=== PATIENT | female | born 1955 | race Caucasian/White ===

== ENCOUNTER 2023-10-28 08:22 | Outpatient (CLI) | payer MEDICARE, SELFPAY ==
--- NOTE | 2023-10-28 08:43 | ECG_ITS ---
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 Measurements Intervals [place] Rate: 68 P: 48 [place]: 157 QRS: -25 QRSD: 92 T: 56 QT: 421 QTc: 450 Interpretive Statements SINUS RHYTHM WITH OCCASIONAL VENTRICULAR PREMATURE COMPLEXES INCOMPLETE RIGHT BUNDLE BRANCH BLOCK BORDERLINE ECG No previous ECG available for comparison Electronically Signed On 10-28-2023 11:43:21 CDT by Ralf Miller D.O.
[2023-10-28 08:49] LABS: Hematocrit 43.5 % (37.0-47.0); Hemoglobin 14.2 g/dL (12.0-15.0)
[2023-10-28 08:57] LABS: Albumin Level 4.1 g/dL (3.5-5.1); Estimated Glomerular Filt Rate > 60
[2023-10-28 10:12] LABS: Urine Cotinine NEGATIVE
== END 2023-10-28 08:23 | disposition home or self-care (01) ==
PROVIDERS: PCP Physician Assistant; Visit Provider Orthopaedic Surgery
DX: Z01.818 Encounter for other preprocedural examination (principal); M17.0 Bilateral primary osteoarthritis of knee; Z79.899 Other long term (current) drug therapy
CPT/HCPCS: 80307; 82040; 82565; 85014; 85018; 93005

== ENCOUNTER 2023-12-14 07:49 | Outpatient (CLI) | payer MEDICARE, SELFPAY ==
[2023-12-14 09:35] LABS: Basophils Absolute Auto 0.1 K/mm3 (0.0-0.1); Basophils Percent Auto 0.9 % (0.2-1.2); Eosinophils Absolute Auto 0.2 K/mm3 (0-0.3); Eosinophils Percent Auto 2.7 % (0-4.4); Hematocrit 39.8 % (37.0-47.0); Hemoglobin 13.5 g/dL (12.0-15.0); Immature Granulocyte Absolute 0.02 K/mm3 (0.00-0.031); Immature Granulocyte Percent A 0.4 % (0-0.5); Lymphocytes Absolute Auto 2.28 K/mm3 (0.9-3.2); Lymphocytes Percent Auto 40.9 % (18.3-44.2); Mean Corpuscular HGB Conc 33.9 g/dl (32-36); Mean Corpuscular Hemoglobin 30.9 pg (26-34); Mean Corpuscular Volume 91.1 fl (80-100); Mean Platelet Volume 10.4 fl (7.4-10.4); Monocytes Absolute Auto 0.4 K/mm3 (0.1-0.6); Monocytes Percent Auto 7.7 % (2.6-8.5); Neutrophils Absolute Auto 2.7 K/mm3 (1.3-6.7); Neutrophils Percent Auto 47.4 % (45.5-73.1); Platelet Count Result 243 k/mm3 (150-375); Red Blood Count 4.37 M/mm3 (4.2-5.4); Red Cell Distribution Width 12.8 % (11.5-14.5); White Blood Count 5.6 K/mm3 (4.5-10.0)
[2023-12-14 09:40] LABS: Anion Gap 10 mmol/L (4-12); Blood Urea Nitrogen 24 mg/dL (7-17); Calcium 9.1 mg/dL (8.4-10.2); Carbon Dioxide 31 mmol/L (22-30); Chloride 98 mmol/L (98-107); Estimated Glomerular Filt Rate > 60; Glucose 92 mg/dL (65-110); Potassium 3.6 mmol/L (3.4-5.0); Sodium 139 mmol/L (137-145)
[2023-12-14 09:41] LABS: Albumin Level 4.4 g/dL (3.5-5.1)
[2023-12-14 09:46] LABS: Hemoglobin A1C 6.5 % (<5.7)
[2023-12-14 09:52] LABS: Urine Cotinine NEGATIVE
[2023-12-14 10:40] LABS: MRSA (PCR) NOT DETECTED (NOT DETECTE)
== END 2023-12-14 07:50 | disposition home or self-care (01) ==
LOC: ANHSURGERY 07:54
PROVIDERS: Anesthesiology; PCP Physician Assistant; Visit Provider Orthopaedic Surgery
DX: M17.12 Unilateral primary osteoarthritis, left knee (principal); Z01.818 Encounter for other preprocedural examination; Z51.81 Encounter for therapeutic drug level monitoring
CPT/HCPCS: 36415; 80048; 80307; 82040; 83036; 85025; 87641

== ENCOUNTER 2024-01-05 02:06 | Day surgery (SDC) | payer MEDICARE, SELFPAY ==
--- NOTE | 2023-12-14 07:55 | PC.NURSE ---
Report to the Outpatient Waiting Room, entrance under the green pavilion located off [facility], at time ___06:00am____ on date __01/05/24 . Planned Procedure Time: ____08:00am____. Time changes happen often and if your time is changed the preop area will call you the afternoon before. - You and your visitor will be asked to self-screen and do not enter if you have any COVID symptoms. - A mask is optional within the hospital at this time. Patients may have clear liquids (water, carbonated beverages, clear teas, apple juice) until 3 hours prior to surgery with a maximum of 20 ounces. - No food from midnight until time of surgery Take the following medications with a SIP of water the morning of surgery: ____Amlodipine. May take your albuteral inhaler and bupropion as needed that am. DO NOT STOP ANY OF YOUR OTHER PRESCRIPTION MEDICATIONS PRIOR TO SURGERY ?EXCEPT THE FOLLOWING Medications to discontinue per physician Hold all NSAIDS/Meloxicam per Dr Salas for 7 days prior Date to take last dose__12/28/23 Please no make-up, nail tongan, hairspray, perfume, deodorant, or body powder the day of surgery. No jewelry (including any body piercings) or valuables the day of surgery, leave them at home. Please take a shower or bath the night before, or the morning of, surgery with an antibacterial soap. Wear comfortable, loose fitting clothing. Children are encouraged to wear pajamas. - Jewelry must be removed prior to entering the operating room. Rings and piercings that are not removed may be cut off. - The hospital will not accept responsibility for valuables. - Please leave all valuables, including medications, at home the day of surgery. If you are going home after surgery, a licensed interstate bus driver must drive you home. - NO public transportation without another adult if you receive anesthesia. - We recommend that an adult stay with you for 24 hours following discharge. - We also recommend that you do not drive, make important decision, drink alcoholic beverages, or take any drugs that were not prescribed by your health care provider for at least 24 hours after your discharge time. Follow any additional instructions given to you from your surgeon. If you or anyone in your household have experienced Covid symptoms in the past week, please notify your surgeon or the nurse liaison at the phone number below for possible testing. Telephone instructions given to ___patient and asked if any additional questions and then verbalized understanding. Patient advised to call surgeon office or pre surgery nurse liaison [phone] if any additional questions.
[2023-12-14 08:00] VITALS: BP 132/76; PULSE 76; RESP 16; TEMP 36.3; O2SAT 98; BMI 30.4
[2024-01-05] VITALS (14 sets, daily range): BP systolic 120–142; BP diastolic 57–74; PULSE 75–94; RESP 10–18; TEMP 35.8–37; O2SAT 95–99
--- NOTE | ~2024-01-05 | XR_ITS ---
EXAMINATION: [id number] DATE: 01/05/2024 13:01 INDICATION: Left knee arthroplasty. Postop. TECHNIQUE: 2 views of left knee were obtained. COMPARISON: Left knee radiographs 09/21/2023 FINDINGS: There is a total left knee arthroplasty without patellar resurfacing. Tibia demonstrates 8 degrees medial angulation with respect to the tibial component. No fracture. There is a tiny osteophy te of the patella. There is gas in the knee joint and soft tissues, consistent with recent surgery. IMPRESSION: 1. New total left knee arthroplasty. Reviewed, dictated and finalized at location A.
[2024-01-05] MEDS: ACETAMINOPHEN 500 MG TABLET 1000 MG PO (08:47)
[2024-01-05] MEDS: LACTATED RINGERS 1,000 ML 30 ML IV CONT ×2 (08:55→12:43)
[2024-01-05 09:01] LABS: Glucose Point of Care 104 mg/dl (65-105)
--- NOTE | 2024-01-05 09:10 | WPDANESEPPF ---
Anes - Initial Pre Proc Eval Procedure: Operation Date: 01/05/24 10:30 Proposed Procedures p Left Total Knee Arthroplasty - Herminio Salas MD Date/Time: 01/05/24 09:10 Surgeon: Herminio Salas MD Pre Op Diagnosis: primary OA left knee Patient Data Age: 68 Gender: F Height: 1.73 m Weight: 90.9 kg Last Vital Signs Temp 36.3 C L 12/14/23 08:00 Pulse 76 12/14/23 08:00 Resp 16 12/14/23 08:00 BP 132/76 12/14/23 08:00 Pulse Ox 98 12/14/23 08:00 O2 Del Method Room Air 12/14/23 08:00 Allergies Allergy/AdvReac Type Severity Reaction Status Date / Time almond Allergy Intermediate Dyspnea / Verified 12/14/23 09:43 SOB flaxseed Allergy Intermediate Dyspnea / Verified 12/14/23 09:43 SOB nut - unspecified Allergy Intermediate Dyspnea / Verified 12/14/23 09:43 SOB oxycodone Allergy Intermediate facial Verified 12/14/23 09:43 Swelling scallops Allergy Intermediate Dyspnea / Verified 12/14/23 09:43 SOB sesame seed Allergy Intermediate Dyspnea / Verified 12/14/23 09:43 SOB soy Allergy Intermediate Dyspnea / Verified 12/14/23 09:43 SOB wheat Allergy Intermediate Dyspnea / Verified 12/14/23 09:43 SOB amoxicillin Allergy Unknown Rash, SOB Verified 12/14/23 09:43 Sulfa (Sulfonamide Allergy Unknown Dyspnea / Verified 12/14/23 09:43 Antibiotics) SOB /rash JAYLEEN Inhibitors AdvReac Mild Cough Verified 12/14/23 09:43 doxycycline AdvReac Mild Redness of Verified 12/14/23 09:43 Skin Elcambb-AHE-CtZ Reductase AdvReac Unknown Joint Pain Verified 12/14/23 09:43 Inhibitor Home Medications Medication Instructions Recorded Confirmed Type amlodipine 10 mg tablet 10 mg PO DAILY 09/21/23 01/05/24 History bupropion HCl 150 mg 24 hr tablet, 150 mg PO QAM PRN Anxiety 09/21/23 01/05/24 History extended release glimepiride 2 mg tablet 2 mg PO QAM 09/21/23 01/05/24 History hydrochlorothiazide 25 mg tablet 25 mg PO DAILY 09/21/23 01/05/24 History meloxicam 15 mg tablet 15 mg PO DAILY PRN Pain 09/21/23 01/05/24 History triamcinolone acetonide 55 mcg 1 spray intranasal DAILY 09/21/23 01/05/24 History nasal spray aerosol (Nasacort) acetaminophen 500 mg capsule 1,000 mg PO Q6H PRN Pain 12/14/23 01/05/24 History albuterol (refill) 90 90 mcg inhalation TID PRN 12/14/23 01/05/24 History mcg/actuation aerosol inhaler Shortness Of Breath Laboratory Tests 01/05/24 08:58 POC Capillary Glucose 104 mg/dl (65-105) Patient hx anesthesia problems: none Family hx anesthesia problems: none Results Review: All pre-operative results and documents have been reviewed as part of the pre-operative evaluation. [facility] Past Medical History Medical History Diabetes History of bruising easily History of lower leg fracture (~2009) History of meningitis (~1962) Coma Hypertension Surgical History Surgical History History of appendectomy (~1981) History of cholecystectomy (~1994) History of hysterectomy (~1987) History of shoulder surgery (~2018) repair History of tonsillectomy (~1972) Social History Social History Smoking packs per day: 0.5 Smoking cigarettes per day: 10.0 Years smoked: 50 Smoking pack-years: 25.00 Smoking status: Former smoker Tobacco type: cigarettes Smoking end date: 09/25/23 Alcohol intake: current Substance use: never Substance use type: does not use Do You Feel Safe in your Home?: Yes Lack of Transportation: No Lack of Food: Never True Current Housing: I Have Housing Concerned About Future Housing: No Difficulty Paying Gas/Electric Bills: No Difficulty Paying for Meds: No Currently Unemployed: No Education: High School Diploma/GED Difficulty w/ Childcare or Family Care: No Living arrangements: with family Additional natalie
--- NOTE | 2024-01-05 10:04 | WPDHPUPDATE1 ---
History and Physical Update Update Date/Time: 01/05/24 10:04 Proceed with left total knee arthroplasty. History and Physical has been reviewed, including an updated exam of the patient. There are NO changes in the patient's condition. Risks, benefits, and alternatives have been discussed and questions answered. Patient agrees to proceed with procedure.
[2024-01-05] MEDS: TRANEXAMIC ACID 1,000MG/ISO100 1,000 MG/100 ML BAG 200 MG IVPB (10:11)
[2024-01-05] MEDS: ceFAZolin 2 GM/D5W 50 ML 2 GM/50 ML BAG IVPB ×2 (10:16→18:14)
[2024-01-05] MEDS: SODIUM CHLORIDE 0.9% IV 38.7 ML, ROPivacaine HCL 1% 200 MG, KETOROLAC INJ (*BKC) 15 MG,... INFILTRATE (10:44)
[2024-01-05 12:50] LABS: Glucose Point of Care 122 mg/dl (65-105)
[2024-01-05] MEDS: fentaNYL CITRATE INJ (*CRX) 100 MCG/2 ML VIAL 25 MCG IV PUSH ×2 (12:50→13:30)
[2024-01-05] MEDS: ONDANSETRON INJ 4 MG/2 ML VIAL IV PUSH (14:05)
--- NOTE | 2024-01-05 14:09 | ADMGEN ---
This patient, Natalie Davalos, was admitted to [facility] Surg Room 326-01. Patient/family oriented to hospital policies and general routines including ID bracelet, bed and alarms, visiting hours, pain management, procedures, bathroom and other care routines, personal items, smoking policy, room service/diet, and visiting hours. Information on how to activate the Rapid Response Team has been discussed. Patient/Family are encouraged to report perceived risks to care and to ask questions if they do not understand what they are told or what they should do.
[2024-01-05 14:56] LABS: Basophils Percent Auto 0.3 % (0.2-1.2); Eosinophils Percent Auto 0.1 % (0-4.4); Hematocrit 37.2 % (37.0-47.0); Hemoglobin 12.8 g/dL (12.0-15.0); Immature Granulocyte Absolute 0.03 K/mm3 (0.00-0.031); Immature Granulocyte Percent A 0.4 % (0-0.5); Lymphocytes Absolute Auto 0.68 K/mm3 (0.9-3.2); Lymphocytes Percent Auto 9.3 % (18.3-44.2); Mean Corpuscular HGB Conc 34.4 g/dl (32-36); Mean Corpuscular Hemoglobin 31.1 pg (26-34); Mean Corpuscular Volume 90.5 fl (80-100); Mean Platelet Volume 10.3 fl (7.4-10.4); Monocytes Absolute Auto 0.1 K/mm3 (0.1-0.6); Neutrophils Absolute Auto 6.5 K/mm3 (1.3-6.7); Neutrophils Percent Auto 88.9 % (45.5-73.1); Platelet Count Result 225 k/mm3 (150-375); Red Blood Count 4.11 M/mm3 (4.2-5.4); Red Cell Distribution Width 12.4 % (11.5-14.5); White Blood Count 7.3 K/mm3 (4.5-10.0)
[2024-01-05 15:05] LABS: Anion Gap 8 mmol/L (4-12); Blood Urea Nitrogen 16 mg/dL (7-17); Calcium 8.5 mg/dL (8.4-10.2); Carbon Dioxide 30 mmol/L (22-30); Chloride 97 mmol/L (98-107); Estimated CRCL calculation 75 ml/min; Estimated Glomerular Filt Rate > 60; Glucose 199 mg/dL (65-110); Potassium 3.9 mmol/L (3.4-5.0); Sodium 135 mmol/L (137-145)
--- NOTE | 2024-01-05 15:29 | W.PM.PROC2 ---
Procedure Note - Detailed Date of Procedure 01/05/24 Pre-op Diagnosis Primary OA left knee Post-op Diagnosis Same Procedure Performed Calipered, kinematically aligned total knee replacement left knee. Surgeon Herminio Salas MD Final Dressing Cutter Radha Schmidt PA-C Anesthesia General Indications Severe degenerative arthritis of the knee. Failed conservative treatment. Findings According to the calipered kinematic alignment principles, the knee was balanced by the following verification checks incorporating 6 caliper measurements, using an insert goniometer to select the insert thickness, and adjusting the tibial resection following the kinematic alignment algorithm (see figure 160.10 published in [employer] chapter on kinematic alignment total knee arthroplasty.) The steps verified the femoral and tibial components were kinematically aligned coincident to the patient's pre arthritic joint lines, which closely restored the nightmute tibial compartment forces and ligament laxities without ligament release. The record of verification checks were documented and scanned into the chart. Description of Procedure General anesthesia was administered. A well-padded tourniquet was placed high on the thigh. The limb was prepped and draped in the usual sterile fashion. The limb was exsanguinated and the tourniquet inflated to 275 mmHg. A longitudinal incision was created over the midline of the knee. Sharp dissection was taken through subcutaneous tissues. Electrocautery was used for hemostasis. A trivector approach to the knee joint was performed. The ACL, anterior horns of the menisci, and fat pad were excised, and a subperiosteal dissection was carried along the posterior medial border of the tibia. Starting midway between the top of the notch in the anterior femoral cortex, I drilled a 9 mm diameter hole parallel to the anterior cortex to minimize flexion of the femoral component and promote patella tracking. I verified the existence of a 5-10 mm bone bridge between the posterior aspect of the hole and the anterior limit of the intercondylar notch. An intraosseous positioning abhi was inserted 10 cm into the femur perpendicular to the distal joint line and parallel to the anterior cortex. I used a distal femoral referencing guide that compensated 2 mm when the cartilage was worn on the distal medial femoral condyle, and 2 mm when the cartilage was worn on the distal lateral femoral condyle. The basis for setting the distal and posterior femoral resection guide is knowing that the varus and valgus grade II to IV Kellegren-Juan osteoarthritic knees have negligible bone wear at 0? and 90? and that the mean full-thickness cartilage wear approximates 2 mm. I measured the thickness of distal femoral resections with a caliper to +/- 0.5 mm. The thickness of each resection was adjusted to match the thickness of the respective condyle of the femoral component within 0 0.5 mm of target after compensating for cartilage wear and kerf. When the distal resection was 1-2 mm too thin, a recut guide was used to adjust the cut. When the distal resection was too thick, a 1 or 2 mm thick washer was fixed to the back of the 4-in-1 chamfer block to toshia a corrective gap between the femoral component and distal femur. I set posterior femoral referencing guide at 0? orientation to position the pin holes for the 4 in 1 chamfer block. The sindi wing measured the width of the distal femoral resection and selected the size of the 4 in 1 chamfer block and femoral component. I measured the thickness of the posterior femoral resections with a caliper before making the anterior and chamfer cuts. I just the did the thicknesses of each resection to match the thickness of the respective condyle of the femoral component within +/-0.5 mm after compensating for cartilage wear and curve. When a posterior resection femoral resection was 1-2 mm too thick or thin a corrective correction was ma
[2024-01-05] MEDS: SENNA/DOCUSATE SODIUM TABLET 2 TAB PO (16:18)
[2024-01-05] MEDS: MELOXICAM 7.5 MG TABLET PO (16:18)
[2024-01-05] MEDS: hydroCHLOROthiazide 25 MG TABLET PO (16:19)
[2024-01-05] MEDS: predniSONE 5 MG TABLET PO (16:19)
[2024-01-05] MEDS: amLODIPine BESYLATE 10 MG TABLET PO (16:19)
[2024-01-05] MEDS: HYDROcodone/acetaminophen (*CRX) 5-325 MG TABLET 1 TAB PO (16:19)
[2024-01-05] MEDS: ACETAMINOPHEN 325 MG TABLET 650 MG PO (18:14)
[2024-01-05] MEDS: ASPIRIN 81 MG ENTERIC TABLET PO (20:59)
[2024-01-05] MEDS: FAMOTIDINE 20 MG TABLET PO (20:59)
[2024-01-06] MEDS: ceFAZolin 2 GM/D5W 50 ML 2 GM/50 ML BAG IVPB ×2 (02:09→10:15)
[2024-01-06] MEDS: HYDROcodone/acetaminophen (*CRX) 5-325 MG TABLET 1 TAB PO ×2 (03:25→10:07)
[2024-01-06 03:34] VITALS: BP 132/67; PULSE 86; RESP 18; TEMP 36.4; O2SAT 97
[2024-01-06 06:06] LABS: Basophils Percent Auto 0.2 % (0.2-1.2); Hematocrit 36.7 % (37.0-47.0); Hemoglobin 11.9 g/dL (12.0-15.0); Immature Granulocyte Absolute 0.05 K/mm3 (0.00-0.031); Immature Granulocyte Percent A 0.4 % (0-0.5); Lymphocytes Absolute Auto 1.28 K/mm3 (0.9-3.2); Lymphocytes Percent Auto 9.9 % (18.3-44.2); Mean Corpuscular HGB Conc 32.4 g/dl (32-36); Mean Corpuscular Hemoglobin 30.4 pg (26-34); Mean Corpuscular Volume 93.6 fl (80-100); Mean Platelet Volume 10.8 fl (7.4-10.4); Monocytes Absolute Auto 0.6 K/mm3 (0.1-0.6); Monocytes Percent Auto 4.8 % (2.6-8.5); Neutrophils Percent Auto 84.7 % (45.5-73.1); Platelet Count Result 232 k/mm3 (150-375); Red Blood Count 3.92 M/mm3 (4.2-5.4); Red Cell Distribution Width 12.5 % (11.5-14.5)
[2024-01-06] MEDS: ACETAMINOPHEN 325 MG TABLET 650 MG PO ×2 (06:06→11:45)
[2024-01-06 06:20] LABS: Anion Gap 11 mmol/L (4-12); Blood Urea Nitrogen 16 mg/dL (7-17); Calcium 8.4 mg/dL (8.4-10.2); Carbon Dioxide 30 mmol/L (22-30); Chloride 93 mmol/L (98-107); Estimated CRCL calculation 54 ml/min; Estimated Glomerular Filt Rate 55; Glucose 204 mg/dL (65-110); Potassium 3.7 mmol/L (3.4-5.0); Sodium 134 mmol/L (137-145)
--- NOTE | 2024-01-06 07:24 | WPDANESPN ---
Anes - Prog Note Post-Op Date/Time: 01/06/24 07:24 Cardiovascular status: normal Respiratory status: normal Airway patency: baseline Mental status: baseline Post-Op hydration status: normal Vital Signs: Last Vital Signs Temp 36.4 C L 01/06/24 03:34 Pulse 86 01/06/24 03:34 Resp 18 01/06/24 03:34 BP 132/67 01/06/24 03:34 Pulse Ox 97 01/06/24 03:34 O2 Del Method Room Air 01/05/24 16:00 O2 Flow Rate 2 01/05/24 15:02 Pain Score (VAS): 0 I/O: Intake & Output 01/05/24 01/05/24 01/06/24 15:59 23:59 07:59 Intake Total 250 410 250 Output Total 480 Balance 250 -70 250 Laboratory Tests 01/06/24 05:32 01/06/24 05:32 01/05/24 01/05/24 01/05/24 08:48 08:58 12:46 WBC RBC Hgb Hct MCV MCH MCHC RDW Plt Count MPV Immature Gran % (Auto) Neut % (Auto) Lymph % (Auto) [place] % (Auto) Eos % (Auto) Baso % (Auto) Lymph # (Auto) [place] # (Auto) Eos # (Auto) Baso # (Auto) Abs Immat Gran (auto) Absolute Neuts (auto) Absolute Nucleated RBC Nucleated RBC % Sodium Potassium Chloride Carbon Dioxide Anion Gap BUN Creatinine Estim Creat Clear Calc Estimated GFR Glucose POC Capillary Glucose 104 122 H Calcium Blood Type O Positive Antibody Screen Negative 01/05/24 01/06/24 14:49 05:32 WBC 7.3 13.0 H RBC 4.11 L 3.92 L Hgb 12.8 11.9 L Hct 37.2 36.7 L MCV 90.5 93.6 MCH 31.1 30.4 MCHC 34.4 32.4 RDW 12.4 12.5 Plt Count 225 232 MPV 10.3 10.8 H Immature Gran % (Auto) 0.4 0.4 Neut % (Auto) 88.9 H 84.7 H Lymph % (Auto) 9.3 L 9.9 L [place] % (Auto) 1.0 L 4.8 Eos % (Auto) 0.1 0.0 Baso % (Auto) 0.3 0.2 Lymph # (Auto) 0.68 L 1.28 [place] # (Auto) 0.1 0.6 Eos # (Auto) 0.0 0.0 Baso # (Auto) 0.0 0.0 Abs Immat Gran (auto) 0.03 0.05 H Absolute Neuts (auto) 6.5 11.0 H Absolute Nucleated RBC 0.000 0.000 Nucleated RBC % 0.0 0.0 Sodium 135 L 134 L Potassium 3.9 3.7 Chloride 97 L 93 L Carbon Dioxide 30 30 Anion Gap 8 11 BUN 16 16 Creatinine 0.70 1.00 Estim Creat Clear Calc 75 54 Estimated GFR > 60 55 L Glucose 199 H 204 H POC Capillary Glucose Calcium 8.5 8.4 Blood Type Antibody Screen Post-procedural complaints: none Patient Feedback: Patient satisfied with anesthetic care.
[2024-01-06 07:34] VITALS: BP 123/68; PULSE 70; RESP 12; TEMP 36.4; O2SAT 98
--- NOTE | 2024-01-06 08:38 | PM.DS ---
DS: Admitting Diagnosis Discharge Date 01/06/24 Admitting Diagnosis OA knee Left DS: Discharge Diagnosis Discharge Diagnosis (1) Status post total left knee replacement: Code(s): Z96.652 - Presence of left artificial knee joint Status: Acute Assessment and Plan: Postop day 1: Left total knee arthroplasty. Patient tolerated procedure well. No complications. Pain manageable with pain medication. No numbness or tingling. We had a lengthy discussion regarding postoperative wound care, limitations, expectations, and exercises. Patient shows good understanding. He has had initial physical therapy and is tolerating it well. DVT prophylaxis: 81 mg baby aspirin b.i.d. for 14 days. Pain medication: Hydrocodone. Meloxicam. Prednisone (she will not take if Blood glucose >150.) Patient has followup appointment with Dr. Salas in 3 weeks. DS: Summary Hospital Course Reason for hospitalization: Total knee arthroplasty Hospital Course: Patient tolerated procedure well. Has had initial PT/OT. Status at Discharge Functional status at discharge: uses cane/walker Overall status at discharge: patient is progressing back to baseline Time Spent with Patient Time attestation: Total time spent providing and/or coordinating discharge services: Exam Narrative: 68-year-old overweight female. Resting comfortably in bed. Alert and oriented x3. No acute distress. Wearing compression socks bilaterally. Dressing dry and intact without drainage. Moderate swelling. No ecchymosis. No erythema. No hematoma. Range of motion limited due to pain. Calf nontender. Neurologic status intact. No varicosities. Distal pulses palpable. Quad functions. DS: Data Data Completed and Pending Labs on day of discharge: Labs from last 24 hours 01/06/24 01/05/24 01/05/24 05:32 14:49 12:46 WBC 13.0 H 7.3 RBC 3.92 L 4.11 L Hgb 11.9 L 12.8 Hct 36.7 L 37.2 MCV 93.6 90.5 MCH 30.4 31.1 MCHC 32.4 34.4 RDW 12.5 12.4 Plt Count 232 225 MPV 10.8 H 10.3 Immature Gran % (Auto) 0.4 0.4 Neut % (Auto) 84.7 H 88.9 H Lymph % (Auto) 9.9 L 9.3 L [place] % (Auto) 4.8 1.0 L Eos % (Auto) 0.0 0.1 Baso % (Auto) 0.2 0.3 Lymph # (Auto) 1.28 0.68 L [place] # (Auto) 0.6 0.1 Eos # (Auto) 0.0 0.0 Baso # (Auto) 0.0 0.0 Abs Immat Gran (auto) 0.05 H 0.03 Absolute Neuts (auto) 11.0 H 6.5 Absolute Nucleated RBC 0.000 0.000 Nucleated RBC % 0.0 0.0 Sodium 134 L 135 L Potassium 3.7 3.9 Chloride 93 L 97 L Carbon Dioxide 30 30 Anion Gap 11 8 BUN 16 16 Creatinine 1.00 0.70 Estim Creat Clear Calc 54 75 Estimated GFR 55 L > 60 Glucose 204 H 199 H POC Capillary Glucose 122 H Calcium 8.4 8.5 Blood Type Antibody Screen 01/05/24 01/05/24 08:58 08:48 WBC RBC Hgb Hct MCV MCH MCHC RDW Plt Count MPV Immature Gran % (Auto) Neut % (Auto) Lymph % (Auto) [place] % (Auto) Eos % (Auto) Baso % (Auto) Lymph # (Auto) [place] # (Auto) Eos # (Auto) Baso # (Auto) Abs Immat Gran (auto) Absolute Neuts (auto) Absolute Nucleated RBC Nucleated RBC % Sodium Potassium Chloride Carbon Dioxide Anion Gap BUN Creatinine Estim Creat Clear Calc Estimated GFR Glucose POC Capillary Glucose 104 Calcium Blood Type O Positive Antibody Screen Negative Discharge Plan Discharge Patient Disposition: Home, Self-Care Discharge Instructions: See green instruction sheets Stand Alone Forms: General Discharge Instructions Follow-up/Referrals: Radha Schmidt PA [Physician Gluer] - Discharge Medications: New hydrocodone-acetaminophen 5-325 mg tablet 1 - 2 tablet PO Q4-6H MDD 6 PRN (Reason: pain) Qty: 30 0RF prednisone 5 mg tablet 5 mg PO DAILY 21 Days Qty: 21 0RF aspirin 81 mg tablet,delayed release (DR/EC) 81 mg PO BID 14 Days Qty:
[2024-01-06] MEDS: polyethylene glycoL 3350 17 GM POWD.PACK PO (10:07)
[2024-01-06] MEDS: GLIMEPIRIDE 2 MG TABLET PO (10:08)
[2024-01-06] MEDS: MELOXICAM 7.5 MG TABLET PO (10:09)
[2024-01-06] MEDS: amLODIPine BESYLATE 10 MG TABLET PO (10:09)
[2024-01-06] MEDS: FAMOTIDINE 20 MG TABLET PO (10:09)
[2024-01-06] MEDS: SENNA/DOCUSATE SODIUM TABLET 2 TAB PO (10:09)
[2024-01-06] MEDS: hydroCHLOROthiazide 25 MG TABLET PO (10:10)
[2024-01-06] MEDS: FLUTICASONE PROPIONATE 0.05% NA SPR 16 GM BTL (*BKC) 1 SPRAY NASAL (10:10)
[2024-01-06] MEDS: ASPIRIN 81 MG ENTERIC TABLET PO (10:15)
[2024-01-06 11:34] VITALS: BP 136/76; PULSE 74; RESP 16; TEMP 36.4; O2SAT 99
[2024-01-06 12:03] LABS: Glucose Point of Care 146 mg/dl (65-105)
== END 2024-01-06 12:50 | disposition home or self-care (01) ==
LOC: ANHSURGERY 12:56 → ANH3MEDSUR 13:54
PROVIDERS: Physician Assistant Surgical; PCP Physician Assistant; Visit Provider Orthopaedic Surgery
PROC: (CPT 27447; principal; 2024-01-05 10:30)
DX: M17.12 Unilateral primary osteoarthritis, left knee (principal); I10 Essential (primary) hypertension; E11.9 Type 2 diabetes mellitus without complications; Z87.891 Personal history of nicotine dependence; E66.9 Obesity, unspecified; Z68.29 Body mass index [BMI] 29.0-29.9, adult; Z79.84 Long term (current) use of oral hypoglycemic drugs; Z79.51 Long term (current) use of inhaled steroids
CPT/HCPCS: 27447; 36415; 73560; 80048; 82948; 85025; 86850; 86900; 86901; 97110; 97116; 97161; 97165; 97530; 97535; A9270; C1713; J0171; J0690; J1100; J1170; J1885; J2405; J2704; J2795; J3010; J7120; J7512

== ENCOUNTER 2024-02-24 09:48 | Outpatient (CLI) | payer MEDICARE, SELFPAY ==
--- NOTE | ~2024-02-24 | XR_ITS ---
XR knee RT min 4V 02/24/2024 10:19 Indication: Right knee pain Procedure: 4 views right knee Comparison: 09/21/2023 Findings: Moderate osteoarthritis of the right knee. Degenerative changes most advanced in the medial compartment. No fracture or traumatic malalignment. No significant joint effusion. Impression: 1: Moderate tricompartment osteoarthritis. Reviewed, dictated and finalized at location B. Impression: 1: Moderate tricompartment osteoarthritis.
--- NOTE | ~2024-02-24 | XR_ITS ---
XR knee LT 3V 02/24/2024 10:19 Indication: Left knee arthroplasty Procedure: 3 views left knee Comparison: 09/21/2023 Findings: Status post left knee arthroplasty. Prosthesis well seated. No significant joint effusion. No foreign bodies. Impression: 1: No acute bone or joint abnormality. Reviewed, dictated and finalized at location B. Impression: 1: No acute bone or joint abnormality.
== END 2024-02-24 09:49 | disposition home or self-care (01) ==
PROVIDERS: PCP Physician Assistant; Visit Provider Orthopaedic Surgery
DX: M17.11 Unilateral primary osteoarthritis, right knee (principal); Z96.652 Presence of left artificial knee joint
CPT/HCPCS: 73562; 73564

== ENCOUNTER 2024-03-05 10:00 | Outpatient (CLI) | payer MEDICARE, SELFPAY ==
[2024-03-05 10:29] LABS: Basophils Percent Auto 0.5 % (0.2-1.2); Eosinophils Absolute Auto 0.1 K/mm3 (0-0.3); Hematocrit 42.5 % (37.0-47.0); Hemoglobin 14.4 g/dL (12.0-15.0); Immature Granulocyte Absolute 0.01 K/mm3 (0.00-0.031); Immature Granulocyte Percent A 0.2 % (0-0.5); Lymphocytes Absolute Auto 1.83 K/mm3 (0.9-3.2); Lymphocytes Percent Auto 31.5 % (18.3-44.2); Mean Corpuscular HGB Conc 33.9 g/dl (32-36); Mean Corpuscular Hemoglobin 30.9 pg (26-34); Mean Corpuscular Volume 91.2 fl (80-100); Mean Platelet Volume 10.1 fl (7.4-10.4); Monocytes Absolute Auto 0.4 K/mm3 (0.1-0.6); Monocytes Percent Auto 7.2 % (2.6-8.5); Neutrophils Absolute Auto 3.5 K/mm3 (1.3-6.7); Neutrophils Percent Auto 59.6 % (45.5-73.1); Platelet Count Result 274 k/mm3 (150-375); Red Blood Count 4.66 M/mm3 (4.2-5.4); Red Cell Distribution Width 12.4 % (11.5-14.5); White Blood Count 5.8 K/mm3 (4.5-10.0)
[2024-03-05 10:36] LABS: Albumin Level 4.4 g/dL (3.5-5.1)
[2024-03-05 10:40] LABS: Anion Gap 11 mmol/L (4-12); Blood Urea Nitrogen 14 mg/dL (7-17); Calcium 9.5 mg/dL (8.4-10.2); Carbon Dioxide 31 mmol/L (22-30); Chloride 97 mmol/L (98-107); Estimated Glomerular Filt Rate > 60; Glucose 96 mg/dL (65-110); Potassium 3.8 mmol/L (3.4-5.0); Sodium 139 mmol/L (137-145)
[2024-03-05 11:00] LABS: Urine Cotinine NEGATIVE
[2024-03-05 11:38] LABS: MRSA (PCR) NOT DETECTED (NOT DETECTE)
== END 2024-03-05 10:01 | disposition home or self-care (01) ==
LOC: ANHSURGERY 10:08
PROVIDERS: Anesthesiology; PCP Physician Assistant; Visit Provider Orthopaedic Surgery
DX: Z01.818 Encounter for other preprocedural examination (principal); M17.11 Unilateral primary osteoarthritis, right knee; Z51.81 Encounter for therapeutic drug level monitoring; Z79.899 Other long term (current) drug therapy
CPT/HCPCS: 36415; 80048; 80307; 82040; 85025; 86850; 86900; 86901; 87641

== ENCOUNTER 2024-03-08 00:39 | Day surgery (SDC) | payer MEDICARE, SELFPAY ==
--- NOTE | 2024-03-02 15:04 | PC.NURSE ---
Report to the Outpatient Waiting Room, entrance under the green pavilion located off [facility], at time ___06:00am__on date _03/08/24 . Planned Procedure Time: ___07:30am .? Time changes happen often and if your time is changed the preop area will call you the afternoon before. - You and your visitor will be asked to self-screen and do not enter if you have any COVID symptoms. Please call surgeon if you need to reschedule. - A mask is optional within the hospital at this time. Patients may have clear liquids (water, carbonated beverages, clear teas, apple juice) until 3 hours prior to surgery with a maximum of 20 ounces. - No food from midnight until time of surgery and no smoking. Take only the following medications with a SIP of water on the morning of surgery: _Amlodipine, Albuteral inhaler, Bupropion & Tylenol as needed DO NOT STOP ANY OF YOUR OTHER PRESCRIPTION MEDICATIONS PRIOR TO SURGERY EXCEPT THE FOLLOWING Medications to discontinue per physician Aspirin and Meloxicam for 7 days prior to surgery per Dr Salas Date to take last dose 02/29/24 Please no make-up, nail hungarian, hairspray, perfume, deodorant, or body powder the day of surgery.? No jewelry (including any body piercings) or valuables the day of surgery, leave them at home.? Please take a shower or bath the night before, or the morning of, surgery with an antibacterial soap.? Wear comfortable, loose fitting clothing.? - Jewelry must be removed prior to entering the operating room.? Rings and piercings that are not removed may be cut off. - The hospital will not accept responsibility for valuables.? - Please leave all valuables, including medications, at home the day of surgery. If you are going home after surgery, a licensed ambulette driver must drive you home.? - NO public transportation without another adult if you receive anesthesia. - We recommend that an adult stay with you for 24 hours following discharge. - We also recommend that you do not drive, make important decision, drink alcoholic beverages, or take any drugs that were not prescribed by your health care provider for at least 24 hours after your discharge time. Follow any additional instructions given to you from your surgeon. Telephone instructions given to __apatient and asked if any additional questions and then verbalized understanding. Patient advised to call surgeon office or pre surgery nurse liaison [phone] if any additional questions.
[2024-03-02 15:13] VITALS: BMI 30.4
[2024-03-08] VITALS (13 sets, daily range): BP systolic 119–148; BP diastolic 50–73; PULSE 73–97; RESP 11–18; TEMP 36.1–37.3; O2SAT 90–100; BMI 32.8
--- NOTE | ~2024-03-08 | XR_ITS ---
EXAMINATION: [id number] DATE: 03/08/2024 09:33 INDICATION: Total right knee arthroplasty. Postop. TECHNIQUE: 2 views of right knee were obtained. COMPARISON: Right knee radiographs 02/24/2024 FINDINGS: There is a total right knee arthroplasty without patellar resurfacing in near-anatomic alig nment. No fracture. There are tiny osteophytes of the patella. There is gas in the knee joint and sof t tissues, consistent with recent surgery. IMPRESSION: 1. Total right knee arthroplasty in near-anatomic alignment. Reviewed, dictated and finalized at location A.
[2024-03-08] MEDS: ACETAMINOPHEN 500 MG TABLET 1000 MG PO (06:20)
[2024-03-08] MEDS: LACTATED RINGERS 1,000 ML 30 ML IV CONT ×2 (06:30→09:15)
--- NOTE | 2024-03-08 06:33 | WPDANESEPPF ---
Anes - Initial Pre Proc Eval Procedure: Operation Date: 03/08/24 07:30 Proposed Procedures p Right Total Knee Arthroplasty - Herminio Salas MD Date/Time: 03/08/24 06:33 Surgeon: Herminio Salas MD Pre Op Diagnosis: Prim OA Rt Knee Patient Data Age: 68 Gender: F Height: 1.73 m Weight: 90.7 kg Allergies Allergy/AdvReac Type Severity Reaction Status Date / Time almond Allergy Intermediate Dyspnea / Verified 03/08/24 06:18 SOB flaxseed Allergy Intermediate Dyspnea / Verified 03/08/24 06:18 SOB nut - unspecified Allergy Intermediate Dyspnea / Verified 03/08/24 06:18 SOB oxycodone Allergy Intermediate facial Verified 03/08/24 06:18 Swelling scallops Allergy Intermediate Dyspnea / Verified 03/08/24 06:18 SOB sesame seed Allergy Intermediate Dyspnea / Verified 03/08/24 06:18 SOB soy Allergy Intermediate Dyspnea / Verified 03/08/24 06:18 SOB wheat Allergy Intermediate Dyspnea / Verified 03/08/24 06:18 SOB amoxicillin Allergy Unknown Rash, SOB Verified 03/08/24 06:18 Sulfa (Sulfonamide Allergy Unknown Dyspnea / Verified 03/08/24 06:18 Antibiotics) SOB /rash codeine AdvReac Intermediate Rash Verified 03/08/24 06:18 JAYLEEN Inhibitors AdvReac Mild Cough Verified 03/08/24 06:18 doxycycline AdvReac Mild Redness of Verified 03/08/24 06:18 Skin Ejvtoom-AWE-FwJ Reductase AdvReac Unknown Joint Pain Verified 03/08/24 06:18 Inhibitor Home Medications Medication Instructions Recorded Confirmed Type amlodipine 10 mg tablet 10 mg PO DAILY 09/21/23 03/08/24 History bupropion HCl 150 mg 24 hr tablet, 150 mg PO QAM PRN Anxiety 09/21/23 03/08/24 History extended release glimepiride 2 mg tablet 2 mg PO QAM 09/21/23 03/08/24 History hydrochlorothiazide 25 mg tablet 25 mg PO DAILY 09/21/23 03/08/24 History acetaminophen 500 mg capsule 1,000 mg PO Q6H PRN Pain 12/14/23 03/08/24 History albuterol (refill) 90 90 mcg inhalation TID PRN 12/14/23 03/05/24 History mcg/actuation aerosol inhaler Shortness Of Breath aspirin 81 mg tablet,delayed 81 mg PO BID 14 days #28 tabs 01/05/24 03/08/24 Rx release meloxicam 15 mg tablet 15 mg PO DAILY PRN Pain #30 tabs 01/09/24 03/08/24 Rx Patient hx anesthesia problems: none Family hx anesthesia problems: none Results Review: All pre-operative results and documents have been reviewed as part of the pre-operative evaluation. [facility] Past Medical History Medical History Diabetes History of bruising easily History of lower leg fracture (~2009) History of meningitis (~1962) Coma Hypertension Surgical History Surgical History History of appendectomy (~1981) History of cholecystectomy (~1994) History of hysterectomy (~1987) History of shoulder surgery (~2018) repair History of tonsillectomy (~1972) Social History Social History Smoking packs per day: 0.5 Smoking cigarettes per day: 10.0 Years smoked: 45 Smoking pack-years: 22.50 Smoking status: Former smoker Smoking end date: 09/25/23 Alcohol intake: current Substance use: never Substance use type: does not use Do You Feel Safe in your Home?: Yes Lack of Transportation: No Lack of Food: Never True Current Housing: I Have Housing Concerned About Future Housing: No Difficulty Paying Gas/Electric Bills: No Difficulty Paying for Meds: No Currently Unemployed: No Education: High School Diploma/GED Difficulty w/ Childcare or Family Care: No Living arrangements: with family Additional living arrangements comments: Spiritual care concerns: No Anes - Eval Final PreProcedure Day of Procedure 03/08/24 06:33 Patient weight: obese Heart: regular rate and rhythm Lungs: clear to auscultation Airway: Mallampati scale class II Neurological: alert and oriented La
[2024-03-08 06:34] LABS: Glucose Point of Care 109 mg/dl (65-105)
[2024-03-08] MEDS: TRANEXAMIC ACID 1,000MG/ISO100 1,000 MG/100 ML BAG 200 MG IVPB (07:02)
--- NOTE | 2024-03-08 07:17 | WPDHPUPDATE1 ---
History and Physical Update Update Date/Time: 03/08/24 07:17 History and Physical has been reviewed, including an updated exam of the patient. There are NO changes in the patient's condition. Risks, benefits, and alternatives have been discussed and questions answered. Patient agrees to proceed with procedure.
[2024-03-08] MEDS: ceFAZolin 2 GM/D5W 50 ML 2 GM/50 ML BAG IVPB ×3 (07:30→21:35)
[2024-03-08] MEDS: SODIUM CHLORIDE 0.9% IV 38.7 ML, ROPivacaine HCL 1% 200 MG, KETOROLAC INJ (*BKC) 15 MG,... INFILTRATE (07:51)
[2024-03-08] MEDS: GENTAMICIN BONE CEMENT REFOBACIN 1 EACH TOPICAL (08:46)
[2024-03-08] MEDS: TRANEXAMIC ACID 1,000 MG/10 ML AMPUL 1000 MG IV PUSH (08:52)
[2024-03-08 09:22] LABS: Glucose Point of Care 147 mg/dl (65-105)
--- NOTE | 2024-03-08 09:37 | W.PM.PROC2 ---
Procedure Note - Detailed Date of Procedure 03/08/24 Pre-op Diagnosis Severe right knee osteoarthritis Post-op Diagnosis Same Procedure Performed Calipered, kinematically aligned total knee replacement right knee. Surgeon Herminio Salas MD News Assistant Radha Schmidt PA-C Anesthesia General Findings According to the calipered kinematic alignment principles, the knee was balanced by the following verification checks incorporating 6 caliper measurements, using an insert goniometer to select the insert thickness, and adjusting the tibial resection following the kinematic alignment algorithm (see figure 160.10 published in [employer] chapter on kinematic alignment total knee arthroplasty.) The steps verified the femoral and tibial components were kinematically aligned coincident to the patient's pre arthritic joint lines, which closely restored the nulato tibial compartment forces and ligament laxities without ligament release. The [employer] knee, designed specifically for kinematic alignment, fit optimally. The record of verification checks were documented and scanned into the chart. Distal Femoral Resection: Distal Medial 6 mm(cartilage worn), Distal Lateral 8 mm Target thickness of 8mm Unworn, 6mm Worn (No Cartilage). Posterior Femoral Resection: Posterior Medial 5 mm(cartilage worn), Posterior Lateral 7 mm. Target thickness of 7mm Unworn, 5mm Worn (No Cartilage). Tibia varus preoperative 5 degrees; postoperative 6 degrees. Tibia slope preoperative 6 degrees; postoperative 5 degrees. Description of Procedure General anesthesia was administered. A well-padded tourniquet was placed high on the thigh. The limb was prepped and draped in the usual sterile fashion. The limb was exsanguinated and the tourniquet inflated to 300 mmHg during exposure. A longitudinal incision was created over the midline of the knee. Sharp dissection was taken through subcutaneous tissues. Electrocautery was used for hemostasis. A trivector approach to the knee joint was performed. The ACL, anterior horns of the menisci, and fat pad were excised, and a subperiosteal dissection was carried along the posterior medial border of the tibia. The thickness of the nulato patella was measured with a caliper. The patella was resected using the oscillating saw. The best fitting anatomic patella button was selected. The fixation holes were drilled. When the patella and patella buttons combined thickness was thicker than the nulato patella, the patella was recut. Starting midway between the top of the notch in the anterior femoral cortex, I drilled a 9 mm diameter hole parallel to the anterior cortex to minimize flexion of the femoral component and promote patella tracking. I verified the existence of a 5-10 mm bone bridge between the posterior aspect of the hole and the anterior limit of the intercondylar notch. An intraosseous positioning abhi was inserted 10 cm into the femur perpendicular to the distal joint line and parallel to the anterior cortex. I used a distal femoral referencing guide that compensated 2 mm when the cartilage was worn on the distal medial femoral condyle, and 2 mm when the cartilage was worn on the distal lateral femoral condyle. The basis for setting the distal and posterior femoral resection guide is knowing that the varus and valgus grade II to IV Kellegren-Juan osteoarthritic knees have negligible bone wear at 0? and 90? and that the mean full-thickness cartilage wear approximates 2 mm. I measured the thickness of distal femoral resections with a caliper to +/- 0.5 mm. The thickness of each resection was adjusted to match the thickness of the respective condyle of the femoral component within 0.5 mm of target after compensating for cartilage wear and kerf. When the distal resection was 1-2 mm too thin, a recut guide was used to adjust the cut. When the distal resection was too thick, a 1 or 2 mm thick washer was fixed to the back o
[2024-03-08] MEDS: fentaNYL CITRATE INJ (*CRX) 100 MCG/2 ML VIAL 25 MCG IV PUSH ×4 (09:39→10:13)
--- NOTE | 2024-03-08 10:35 | ADMGEN ---
This patient, Natalie Davalos, was admitted to 2 Medical Room 251-. Patient/family oriented to hospital policies and general routines including ID bracelet, bed and alarms, visiting hours, pain management, procedures, bathroom and other care routines, personal items, smoking policy, room service/diet, and visiting hours. Information on how to activate the Rapid Response Team has been discussed. Patient/Family are encouraged to report perceived risks to care and to ask questions if they do not understand what they are told or what they should do.
[2024-03-08] MEDS: ONDANSETRON INJ 4 MG/2 ML VIAL IV PUSH ×2 (11:05→17:50)
[2024-03-08] MEDS: ACETAMINOPHEN 325 MG TABLET 650 MG PO ×2 (11:08→17:18)
[2024-03-08] MEDS: SODIUM CHLORIDE 0.9% IV 1,000 ML 125 ML IV CONT (11:09)
[2024-03-08] MEDS: HYDROcodone/acetaminophen (*CRX) 5-325 MG TABLET 1 TAB PO (15:00)
[2024-03-08] MEDS: SENNA/DOCUSATE SODIUM TABLET 2 TAB PO (17:18)
[2024-03-08] MEDS: predniSONE 5 MG TABLET PO (17:19)
[2024-03-08] MEDS: ASPIRIN 81 MG ENTERIC TABLET PO (17:19)
[2024-03-08] MEDS: FAMOTIDINE 20 MG TABLET PO (21:34)
[2024-03-08 23:38] LABS: Glucose Point of Care 151 mg/dl (65-105)
[2024-03-09] MEDS: ACETAMINOPHEN 325 MG TABLET 650 MG PO ×2 (00:09→06:05)
[2024-03-09] MEDS: HYDROcodone/acetaminophen (*CRX) 5-325 MG TABLET 1 TAB PO (02:19)
[2024-03-09 04:36] LABS: Basophils Percent Auto 0.2 % (0.2-1.2); Hematocrit 35.1 % (37.0-47.0); Hemoglobin 11.5 g/dL (12.0-15.0); Immature Granulocyte Absolute 0.05 K/mm3 (0.00-0.031); Immature Granulocyte Percent A 0.4 % (0-0.5); Lymphocytes Absolute Auto 1.52 K/mm3 (0.9-3.2); Mean Corpuscular HGB Conc 32.8 g/dl (32-36); Mean Corpuscular Hemoglobin 29.9 pg (26-34); Mean Corpuscular Volume 91.2 fl (80-100); Mean Platelet Volume 10.2 fl (7.4-10.4); Monocytes Absolute Auto 0.7 K/mm3 (0.1-0.6); Monocytes Percent Auto 5.8 % (2.6-8.5); Neutrophils Absolute Auto 9.5 K/mm3 (1.3-6.7); Neutrophils Percent Auto 80.6 % (45.5-73.1); Platelet Count Result 221 k/mm3 (150-375); Red Blood Count 3.85 M/mm3 (4.2-5.4); Red Cell Distribution Width 12.3 % (11.5-14.5); White Blood Count 11.7 K/mm3 (4.5-10.0)
[2024-03-09 04:49] LABS: Anion Gap 7 mmol/L (4-12); Blood Urea Nitrogen 14 mg/dL (7-17); Calcium 8.4 mg/dL (8.4-10.2); Carbon Dioxide 31 mmol/L (22-30); Chloride 97 mmol/L (98-107); Estimated CRCL calculation 79 ml/min; Estimated Glomerular Filt Rate > 60; Glucose 120 mg/dL (65-110); Potassium 3.9 mmol/L (3.4-5.0); Sodium 135 mmol/L (137-145)
[2024-03-09 05:08] VITALS: BP 121/60; PULSE 72; RESP 18; TEMP 36.8; O2SAT 97
[2024-03-09] MEDS: ceFAZolin 2 GM/D5W 50 ML 2 GM/50 ML BAG IVPB (06:09)
--- NOTE | 2024-03-09 07:47 | PM.DS ---
DS: Admitting Diagnosis Discharge Date 03/09/24 Admitting Diagnosis Knee arthritis DS: Discharge Diagnosis Discharge Diagnosis (1) Status post total right knee replacement: Code(s): Z96.651 - Presence of right artificial knee joint Status: Acute Plan Postop day 1: Right total knee arthroplasty. Patient tolerated procedure well. No complications. Pain manageable with pain medication. No numbness or tingling. We had a lengthy discussion regarding postoperative wound care, limitations, expectations, and exercises. Patient shows good understanding. She has had initial physical therapy and is tolerating it well. DVT prophylaxis: 81 mg baby aspirin b.i.d. for 14 days. Pain medication: Hydrocodone. Meloxicam. Prednisone. Patient has followup appointment with Dr. Salas in 3 weeks. DS: Summary Hospital Course Reason for hospitalization: Total knee arthroplasty Hospital Course: Patient tolerated procedure well. Has had initial PT/OT. Status at Discharge Functional status at discharge: uses cane/walker Overall status at discharge: patient is progressing back to baseline Time Spent with Patient Time attestation: Total time spent providing and/or coordinating discharge services: Exam Narrative: 68-year-old overweight female. Resting comfortably in bed. Alert and oriented x3. No acute distress. Wearing compression socks bilaterally. Dressing dry and intact without drainage. Moderate swelling. No ecchymosis. No erythema. No hematoma. Range of motion limited due to pain. Calf nontender. Neurologic status intact. No varicosities. Distal pulses palpable. Quad functions. DS: Data Data Completed and Pending Labs on day of discharge: Labs from last 24 hours 03/09/24 03/08/24 03/08/24 04:27 23:22 09:19 WBC 11.7 H RBC 3.85 L Hgb 11.5 L Hct 35.1 L MCV 91.2 MCH 29.9 MCHC 32.8 RDW 12.3 Plt Count 221 MPV 10.2 Immature Gran % (Auto) 0.4 Neut % (Auto) 80.6 H Lymph % (Auto) 13.0 L Alfalfa % (Auto) 5.8 Eos % (Auto) 0.0 Baso % (Auto) 0.2 Lymph # (Auto) 1.52 Alfalfa # (Auto) 0.7 H Eos # (Auto) 0.0 Baso # (Auto) 0.0 Abs Immat Gran (auto) 0.05 H Absolute Neuts (auto) 9.5 H Absolute Nucleated RBC 0.000 Nucleated RBC % 0.0 Sodium 135 L Potassium 3.9 Chloride 97 L Carbon Dioxide 31 H Anion Gap 7 BUN 14 Creatinine 0.70 Estim Creat Clear Calc 79 Estimated GFR > 60 Glucose 120 H POC Capillary Glucose 151 H 147 H Calcium 8.4 Discharge Plan Discharge Patient Disposition: Home, Self-Care Discharge Instructions: See green instruction sheets Patient Instructions: How to Stop Smoking (GEN), Pain Management (DC) Stand Alone Forms: General Discharge Instructions Follow-up/Referrals: Radha Schmidt PA [[facility] [employer]] - Discharge Medications: New hydrocodone-acetaminophen 5-325 mg tablet 1 - 2 tablet PO Q4-6H MDD 6 PRN (Reason: pain) Qty: 30 0RF meloxicam 15 mg tablet 15 mg PO DAILY Qty: 30 0RF Rx Instructions: Cut in half. Take 1/2 in morning and 1/2 at night. Take with food. Stop if stomach upset. prednisone 5 mg tablet 5 mg PO DAILY 21 Days Qty: 21 0RF Continued amlodipine 10 mg tablet 10 mg PO DAILY Rx Instructions: AM hydrochlorothiazide 25 mg tablet 25 mg PO DAILY Rx Instructions: am glimepiride 2 mg tablet 2 mg PO QAM Rx Instructions: administer with breakfast bupropion HCl 150 mg tablet extended release 24 hr 150 mg PO QAM PRN (Reason: Anxiety) albuterol (refill) 90 mcg/actuation Aerosol 90 mcg INHALATION TID PRN (Reason: Shortness Of Breath) aspirin 81 mg tablet,delayed release (DR/EC) 81 mg PO BID 14 Days Qty: 28 0RF Rx Instructions: pt to hold aspirin 7 days prior to surgery Held acetaminophen 500 mg Capsule 1,000 mg PO Q6H PRN (Deborah
[2024-03-09 08:09] VITALS: BP 165/78; PULSE 91; RESP 17; TEMP 36.9; O2SAT 95
[2024-03-09] MEDS: amLODIPine BESYLATE 10 MG TABLET PO (08:19)
[2024-03-09] MEDS: hydroCHLOROthiazide 25 MG TABLET PO (08:19)
[2024-03-09] MEDS: GLIMEPIRIDE 2 MG TABLET PO (08:19)
[2024-03-09] MEDS: SENNA/DOCUSATE SODIUM TABLET 2 TAB PO (08:19)
[2024-03-09] MEDS: polyethylene glycoL 3350 17 GM POWD.PACK PO (08:19)
[2024-03-09] MEDS: FAMOTIDINE 20 MG TABLET PO (08:19)
[2024-03-09] MEDS: ASPIRIN 81 MG ENTERIC TABLET PO (08:19)
[2024-03-09 08:40] LABS: Glucose Point of Care 144 mg/dl (65-105)
[2024-03-09 08:52] VITALS: O2SAT 99
== END 2024-03-09 10:05 | disposition home or self-care (01) ==
LOC: ANHSURGERY 09:18 → ANH2MED 10:39
PROVIDERS: Physician Assistant Surgical; PCP Physician Assistant; Visit Provider Orthopaedic Surgery
PROC: (CPT 27447; principal; 2024-03-08 07:30)
DX: M17.11 Unilateral primary osteoarthritis, right knee (principal); E11.9 Type 2 diabetes mellitus without complications; I10 Essential (primary) hypertension; Z87.891 Personal history of nicotine dependence; E66.9 Obesity, unspecified; Z68.32 Body mass index [BMI] 32.0-32.9, adult
CPT/HCPCS: 27447; 36415; 73560; 80048; 82948; 85025; 97110; 97161; 97165; 97530; 97535; A9270; C1713; J0171; J0690; J1100; J1885; J2003; J2405; J2704; J2795; J3010; J7030; J7120; J7512

== ENCOUNTER 2024-10-02 09:28 | Outpatient (CLI) | payer MEDICARE, SELFPAY ==
--- NOTE | ~2024-10-02 | XR_ITS ---
Cervical Spine: AP, lateral, open-mouth views Clinical History: Pain Findings: The normal lordotic curve is maintained. No fracture or subluxation seen. There is advanced degenerative disc narrowing at C5-C6 and C6-C7. There is moderate degenerative disc narrowing at the remaining cervical levels. There is mild to moderate facet arthropathy throughout the cervical spine . Pre-vertebral soft tissues are unremarkable. Impression: Moderate degenerative spondylosis overall, as detailed above. Reviewed, dictated and finalized at location . Impression: Moderate degenerative spondylosis overall, as detailed above.
--- OUTSIDE RECORDS SUMMARY | 2024-10-02 10:11 | XMS_ITS ---
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 ; Benign neoplasm of ascending colon D12.2 and Benign neoplasm of cecum D12.0 Assessments Encounter Date Diagnosis (ICD Code) Assessment Notes Treatment Notes Treatment Clinical Notes Section Notes 07/15/2023 Personal history of colon polyps (ICD-10 - Z86.010) 07/15/2023 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
--- OUTSIDE RECORDS SUMMARY | 2024-10-02 10:11 | XMS_ITS | Referral Summary ---
Author Organization [facility] Address [address] [place] [address] Care Team Providers Care Infectious Disease Physician Name Role Phone Candice Dallas NP Primary Care Provider [phone] Encounters Date Type Department Care Team Description 09/10/2024 Results Follow-Up [facility] at [address] [address] Anika Vyas PA 09/04/2024 2:50 PM CDT - 09/04/2024 11:59 PM CDT Hospital Encounter [facility] [address] [place] [address] Colitis; Chronic constipation; Bloating Discharge Disposition: Discharge to home or self care 09/04/2024 Telephone [facility] at [address] [place] [address] Beatrice Young LPN 09/04/2024 1:45 PM CDT Office Visit [facility] at [address] [address] Anika Vyas PA Colitis (Primary Dx); Chronic constipation; Bloating 08/27/2024 4:05 PM CDT - 08/27/2024 6:10 PM CDT Emergency [facility] Department [address] [place] [address] Colitis (Primary Dx) Discharge Disposition: Discharge to home or self care from Last 3 Months Allergies Active Allergy Reactions Criticality Noted Date Comments Last Inhibitors Anaphylaxis High 02/21/2017 Antihypertensives Amoxicillin-Pot Clavulanate Swelling High 01/09/2019 Facial swelling. Rash Codeine Rash Medium 10/03/2018 Levofloxacin Other (See comments) Low 02/21/2017 Causes arthritis to flare up Losartan Potassium Unknown 02/21/2017 Wrmbwuv-Tvw-Vzv Reductase Inhibitors Itching,Muscle pain,Other (See comments) Medium 02/21/2017 Antihyperlipidemics Medications amLODIPine (NORVASC) 10 mg tabletIndicatio ns:hypertension Take 1 tablet (10 mg total) by mouth every morning Active hydroCHLOROthia zide (HYDRODIURIL) 25 mg tabletIndicatio ns:hypertension Take 1 tablet (25 mg total) by mouth every morning Active glimepiride (AMARYL) 2 mg tabletIndicatio ns:type 2 diabetes mellitus Take 1 tablet (2 mg total) by mouth daily before breakfast Active fish oil-dha-epa 1,200-144-216 mg capsuleIndicati ons:supplement Take 1 capsule by mouth 2 (two) times a day Active multivit-minera p-mkqd-fjgtec tabletIndicatio ns:supplement Take 1 tablet by mouth every morning Active clobetasol-emol lient (TEMOVATE E) 0.05 % cream Apply 1 application topically 2 (two) times a day as needed Active albuterol HFA (PROVENTIL HFA,VENTOLIN HFA,PROAIR HFA) 90 mcg/actuation inhaler Inhale 2 puffs every 4 (four) hours as needed for wheezing Active oxyCODONE (ROXICODONE) 5 mg immediate release tabletIndicatio ns:Pain Take 1 tablet (5 mg total) by mouth every 4 (four) hours as needed for pain 40 tablet 9 Active acetaminophen (TYLENOL) 500 mg tablet Take 2 tablets (1,000 mg total) by mouth every 6 (six) hours 60 tablet 2 9 Active cefdinir (OMNICEF) 300 mg capsule Take 1 capsule (300 mg total) by mouth 2 (two) times a day for 14 days 28 capsule 5 09/11/19 25 metroNIDAZOLE (FLAGYL) 500 mg tablet Take 1 tablet (500 mg total) by mouth 3 (three) times a day for 7 days 21 tablet 5 09/04/19 25 Active Problems Problem Noted Date Diagnosed Date Colitis 09/04/2024 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 Social History Tobacco Use Types Packs/Day Years Used Date Smoking Tobacco: Former Cigarettes 0.5 48.2 1 976 - 07/2023 Smokeless Tobacco: Never Tobacco Cessation:Counseling Given: Not Answered Alcohol Use Standard Drinks/Week Comments Never 0 (1 standard drink = 0.6 oz pur e alcohol) AUDIT-C Answer Date Recorded Q1: How often do you have a drink containing alc ohol? Never 09/04/2024 Average Number of Drinks Not on file 025 Frequency of Binge Drinking Not on file 12/2024 Personal Safety Answer Date Recorded Have you ever been in or are you currently in a harmful physical or emotional relationship or is someone making you feel afraid or unsafe? Denies 08/27/2024 Comments No Sex and Gender Information Value Date Recorded Sex Assigned at Not on file Legal Sex Female 9:54 AM [employer] Gender Identity Not on file Sexual Orientation Not on file Last Filed Vital Signs Vital Sign Reading Time Taken Comments Blood Pressure 139/71 09/04/2024 1:34 PM CDT Pulse 82 09/04/2024 1:34 PM CDT Temperature 36.8 C (98.3 F) 08/27/2024 1:07 PM CDT Respiratory Rate 17 08/27/2024 5:00 PM CDT Oxygen Saturation 93% 09/04/2024 1:34 PM CDT Inhaled Oxygen Concentration - - Weight 95.3 kg (210 lb 1.6 oz) 09/04/2024 1:34 P M CDT Height 172.7 cm (5' 8 ) 09/04/2024 1:34 PM CDT Body Mass Index 31.95 09/04/2024 1:34 PM CDT Plan of Treatment Upcoming Encounters Date Type Department Care Team (Late st Contact Info) Description 10/17/2024 7:55 AM CDT Hospital Encounter [facility] [address] [place] [address] Katharine Espinoza MD [address] [place] [address] 10/17/2024 7:55 AM CDT - 10/17/2024 8:25 AM CDT Surgery [facility] [address] [place] [address] Katharine Espinoza MD [address] [place] [address] [address] [place] [address] COLONOSCOPY Scheduled Procedures Name Priority Associated Diagnoses Date/Ti me COLONOSCOPY Colitis 10/17/2024 7:55 AM CDT Procedures Procedure Name Priority Date/Time Associated Diagnosis Comments XR KUB Schedule Routine, Read Routine (OP Routine) 09/04/2024 3:19 PM CDT Colitis Chronic constipation Bloating HEMOGLOBIN AND HEMATOCRIT STAT 08/27/2024 5:01 PM CDT B ABO / RH CONFIRMATION TESTING STAT 08/27/2024 5:[address] ABDOMEN PELVIS W CONTRAST ED 08/27/2024 3:54 PM CDT EGFR STAT 08/27/2024 2:09 PM CDT DIFFERENTIAL AUTO STAT 08/27/2024 2:0 9 PM CDT ANTIBODY SCREEN STAT 08/27/2024 2:09 PM CDT ABO/RH STAT 08/27/2024 2:09 PM CDT TYPE AND SCREEN STAT 08/27/2024 2:09 PM CDT LIPASE STAT 08/27/2024 2:09 PM CDT COMPREHENSIVE METABOLIC PANEL STAT 08/27/2024 2:09 PM CDT CBC WITH AUTO DIFFERENTIAL STAT 08/27/2024 2:09 PM CDT URINALYSIS AND REFLEX TO MICROSCOPIC AND CULTURE STAT 08/27/2024 2:09 PM CDT from Last 3 Months Results * XR KUB (09/04/2024 3:19 PM CDT) Anatomical Region Laterality Modality Body, Abdomen N/A Computed Radiogr aphy 09/09/2024 9:27 AM CDT Narrative 09/09/2024 9:29 AM CDT EXAM DESCRIPTION: XR KUB REASON FOR STUDY: assess fecal load Rectal bleeding for one week Patient having bowel movements CT done 08.27.24 - possible colitis TECHNIQUE: Single radiographic view of the abdomen. COMPARISON: CT 08/27/2024 FINDINGS: BOWEL: Nonobstructive gas pattern. Moderate stool throughout the colon. SOFT TISSUES: No abnormal calcifications. LINES/TUBES: None. BONES: No acute osseous abnormality. Moderate curvature of the spine convex to the left. Multilevel degenerative change. Mild osteoarthritis of the hips. IMPRESSION: Moderate stool throughout the colon. No evidence of bowel obstruction. THIS IS AN ELECTRONICALLY VERIFIED FINAL REPORT 09/09/2024 9:29 AM - Electronically signed by Gabriel Dawn M.D. RW: STEF Report ID: [id number] Reading Location: [id number] Procedure Note Gabriel Dawn MD - 09/09/2024 EXAM DESCRIPTION: XR KUB REASON FOR STUDY: assess fecal load Rectal bleeding for one week Patient having bowel movements CT done 08.27.24 - possible colitis TECHNIQUE: Single radiographic view of the abdomen. COMPARISON: CT 08/27/2024 FINDINGS: BOWEL: Nonobstructive gas pattern. Moderate stool throughout the colon. SOFT TISSUES: No abnormal calcifications. LINES/TUBES: None. BONES: No acute osseous abnormality. Moderate curvature of the spineconvex to the left. Multilevel degenerative change. Mild osteoarthritis of the hips. IMPRESSION: Moderate stool throughout the colon. No evidence of bowel obstruction. THIS IS AN ELECTRONICALLY VERIFIED FINAL REPORT 09/09/2024 9:29 AM - Electronically signed by Gabriel Dawn M.D. RW: STEF Report ID: [id number] Reading Location: [id number] us Anika MENSAH IMG XR PROCEDURES Final Result * ABO / Rh Confirmation Testing (08/27/2024 5:01 PM CDT) ABO/Rh Confirmation O Positive [facility] Blood 08/27/2024 5:01 PM CDT 08/27/2024 5:57 PM CDT Narrative [facility] ([place]) - 08/27/2024 6:27 PM CDT Notified Latesha in ER for the need of a confirmatory type to be drawn. 08/27/2024 14:53:29 CDT [id number] us Justyn Jim MD LAB BLOOD ORDERABLES Final Res ult [facility] ([place] 1 [facility] [employer] [place] [address] [facility] * Hemoglobin and hematocrit (08/27/2024 5:01 PM CDT) Hgb 13.0 11.9 - 15.5 g/dL Hct 39.2 35.6 - 45.5 % [facility] Blood 08/27/2024 5:01 PM CDT 08/27/2024 5:05 PM CDT us Rabia MENSAH LAB BLOOD ORDERABLES Nini l Result [facility] 1 [facility] [employer] [place] [address] * CT Abdomen Pelvis W Contrast (08/27/2024 3:54 PM CDT) Anatomical Region Laterality Modality Body N/A Computed Tomogra phy 08/27/2024 4:34 PM CDT Narrative 08/27/2024 4:38 PM CDT EXAM DESCRIPTION: CT ABDOMEN PELVIS W CONTRAST REASON FOR STUDY: Abdominal pain, acute, nonlocalized, constipated Constipation and bloody stool for a few months TECHNIQUE: CT scan of the abdomen and pelvis performed with intravenous and without oral contrast using helical scanning technique with dynamic intravenous contrast injection. Reconstructed coronal and sagittal MPR images reviewed. All images stored on PACS. Automated exposure control was used as a dose optimization technique for this examination. CONTRAST TYPE/DOSE: 75mL of IOVERSOL 350 MG IODINE/ML INTRAVENOUS SYRINGE injected via intravenous COMPARISON: None FINDINGS: LOWER CHEST: No acute findings. LIVER: 5 mm lesion in the inferior right hepatic lobe, too small to accurately characterize. GALLBLADDER: Absent. SPLEEN: Normal. PANCREAS: Normal. ADRENALS: Normal. KIDNEYS/URINARY TRACT: No hydronephrosis. Small hypoenhancing bilateral renal lesions, possibly cysts although too small to accurately characterize. GI: No bowel obstruction. Mild stranding and fascial thickening along the descending and sigmoid colon. These appear mildly thick-walled but could be due to decompression. No pneumatosis or portal venous gas. Occasional colonic diverticula. The appendix is not clearly distinguished from adjacent structures but there are no pericecal inflammatory changes to indicate acute appendicitis. PERITONEUM: No free intraperitoneal air or free fluid. REPRODUCTIVE: Previous hysterectomy. VASCULATURE: Vascular calcifications. No abdominal aortic aneurysm. MUSCULOSKELETAL: Lumbar spondylosis, greatest at L3-L4 with grade 1 retrolisthesis of L3 on L4. OTHER: No other abnormality. IMPRESSION: Mild stranding and fascial thickening along the descending and sigmoid colon, raising the possibility of an inflammatory or infectious colitis. Possible mild colonic wall thickening. Additional findings as above. THIS IS AN ELECTRONICALLY VERIFIED FINAL REPORT 08/27/2024 4:38 PM - Electronically signed by Ramsey Rick M.D. JR: Report ID: [id number] Reading Location: [id number] Procedure Note Ramsey Rick MD - 08/27/2024 EXAM DESCRIPTION: CT ABDOMEN PELVIS W CONTRAST REASON FOR STUDY: Abdominal pain, acute, nonlocalized, constipated Constipation and bloody stool for a few months TECHNIQUE: CT scan of the abdomen and pelvis performed with intravenousand without oral contrast using helical scanning technique with dynamic intravenous contrast injection. Reconstructed coronal and sagittal MPRimages reviewed. All images stored on PACS. Automated exposure control was used as a dose optimization technique forthis examination. CONTRAST TYPE/DOSE: 75mL of IOVERSOL 350 MG IODINE/ML INTRAVENOUSSYRINGE injected via intravenous COMPARISON: None FINDINGS: LOWER CHEST: No acute findings. LIVER: 5 mm lesion in the inferior right hepatic lobe, too small to accurately characterize. GALLBLADDER: Absent. SPLEEN: Normal. PANCREAS: Normal. ADRENALS: Normal. KIDNEYS/URINARY TRACT: No hydronephrosis. Small hypoenhancing bilateral renal lesions, possibly cysts although too small to accuratelycharacterize. GI: No bowel obstruction. Mild stranding and fascial thickening alongthe descending and sigmoid colon. These appear mildly thick-walled but couldbe due to decompression. No pneumatosis or portal venous gas. Occasional colonic diverticula. The appendix is not clearly distinguished fromadjacent structures but there are no pericecal inflammatory changes to indicateacute appendicitis. PERITONEUM: No free intraperitoneal air or free fluid. REPRODUCTIVE: Previous hysterectomy. VASCULATURE: Vascular calcifications. No abdominal aortic aneurysm. MUSCULOSKELETAL: Lumbar spondylosis, greatest at L3-L4 with grade 1 retrolisthesis of L3 on L4. OTHER: No other abnormality. IMPRESSION: Mild stranding and fascial thickening along the descending and sigmoidcolon, raising the possibility of an inflammatory or infectious colitis.Possible mild colonic wall thickening. Additional findings as above. THIS IS AN ELECTRONICALLY VERIFIED FINAL REPORT 08/27/2024 4:38 PM - Electronically signed by Ramsey Rick M.D. JR: Report ID: [id number] Reading Location: [place] [address] Elmer Hadley MD IMG CT PROCEDURES Final Resu lt * eGFR (08/27/2024 2:09 PM CDT) eGFR >90 >=60 mL/min/1. 73 m2 Comment: Interpretive Data Reference Interval Normal >/= 90 mL/min/1.73m2 Mildly decreased* 60 - 89 mL/min/1.73m2 Mildly to moderately decreased 45 - 59 mL/min/1.73m2 Moderately to severely decreased 30 - 44 mL/min/1.73m2 Severely decreased 15 - 29 mL/min/1.73m2 Kidney Failure < 15 mL/min/1.73m2 *Relative to young adult level Estimated glomerular filtration rate is determined by the 2020 CKD-EPI equation recommended by the National Kidney Foundation (A Unifying Approach to GFR Estimation: Recommendations of the NKF-ASK Task Force on Reassessing the Inclusion of Race in Diagnosing Kidney Disease, JASN 2020). The CKD-EPI equation should not be used for patients with unstable renal function and has not been validated in children and those over 70. Current interpretive data was last reviewed 2021. Blood 08/27/2024 2:09 PM CDT 08/27/2024 2:17 PM CDT us Justyn Jim MD LAB BLOOD ORDERABLES Final Res ult [facility] ([place] 1 [facility] [place] [address] * (ABNORMAL) Differential, auto (08/27/2024 2:09 PM CDT) Neutrophil abs 7.5(H) 1.5 - 6.5 K/cumm Imm gran abs 0.0 0.0 - 0.1 K/cumm [facility] ([place]) Lymphocyte abs 1.8 0.8 - 3.3 K/cumm [facility] ([place]) Monocyte abs 0.6 0.2 - 0.8 K/cumm [facility] ([place]) Eosinophil abs 0.0 0.0 - 0.5 K/cumm [facility] ([place]) Basophil abs 0.0 0.0 - 0.1 K/cumm [facility] ([place]) Neutrophil pct 75.1 % [facility] ([place]) Comment: Interpretive Data Percent cell count reference ranges are not reported, since discordance with absolute values may lead to misinterpretation of CBC data. Current Interpretive Data was last revised on 2017. Imm gran pct 0.4 % [facility] ([place]) Comment: Interpretive Data Percent cell count reference ranges are not reported, since discordance with absolute values may lead to misinterpretation of CBC data. Current Interpretive Data was last revised on 2017. Lymphocyte pct 17.4 % [facility] ([place]) Comment: Interpretive Data Percent cell count reference ranges are not reported, since discordance with absolute values may lead to misinterpretation of CBC data. Current Interpretive Data was last revised on 2017. Monocyte pct 6.4 % [facility] ([place]) Comment: Interpretive Data Percent cell count reference ranges are not reported, since discordance with absolute values may lead to misinterpretation of CBC data. Current Interpretive Data was last revised on 2017. Eosinophil pct 0.4 % [facility] ([place] Comment: Interpretive Data Percent cell count reference ranges are not reported, since discordance with absolute values may lead to misinterpretation of CBC data. Current Interpretive Data was last revised on 2017. Basophil pct 0.3 % [facility] ([place]) Comment: Interpretive Data Percent cell count reference ranges are not reported, since discordance with absolute values may lead to misinterpretation of CBC data. Current Interpretive Data was last revised on 2017. Blood 08/27/2024 2:09 PM CDT 08/27/2024 2:17 PM CDT us Justyn Jim MD LAB BLOOD ORDERABLES Final Res ult [facility] ([place] 1 [facility] [place] [address] * Urinalysis reflex to microscopic and culture Urine (08/27/2024 2:09 PM CDT) Color, ur Yellow Yellow Clarity, ur Clear Clear [facility] ([place]) Specific gravity, ur 1.020 1.003 - 1.030 [facility]) pH, urine 6.0 [facility]) Comment: Interpretive Data U rine pH is affected by diet, medications, systemic acid-base disturbances, and renal tubular function. pH may affect urinary stone formation. For example, urine pH below 6.0 may help reduce the tendency for calcium phosphate stones and pH greater than 6.0 may reduce the tendency for uric acid stone formation. Source: [facility] Current Interpretive Data was last revised on 2017 Protein, ur ql Negative Negative [facility] ([place]) Glucose, ur ql Negative Negative [facility] ([place]) Ketones, ur Negative Negative [facility] ([place]) Bilirubin, ur Negative Negative [facility] ([place]) Blood, ur Negative Negative [facility] ([place]) Urobilinogen, ur <2.0 <2.0 mg/dL [facility] ([place]) Nitrite, ur Negative Negative [facility] ([place]) Leukocyte esterase, ur Negative Negative [facility] ([place]) UA reflex comment Reflex conditions for microscopic UA and culture not met. [facility] ([place]) Urine 08/27/2024 2:09 PM CDT 08/27/2024 2:17 PM CDT us Justyn Jim MD LAB MICROBIOLOGY - GENERAL ORD ERABLES Final Result [facility] ([place]) 1 [facility] Department [place] [address] * (ABNORMAL) CBC with auto differential (08/27/2024 2:09 PM CDT) WBC 10.0(H) 3.8 - 9.9 K/cumm Hgb 13.8 11.9 - 15.5 g/dL [facility] ([place]) Hct 42.1 35.6 - 45.5 % [facility] ([place]) Plt 304 150 - 400 K/cumm [facility] ([place]) MPV 10.3 9.1 - 12.3 fL [facility] RBC 4.79 3.90 - 5.20 M/cumm [facility] ([place]) MCV 87.9 81.3 - 96.4 fL [facility] ([place]) MCH 28.8 27.1 - 33.3 pg [facility] ([place]) MCHC 32.8 32.3 - 35.7 g/dL [facility] ([place]) RDW CV 13.1 11.1 - 14.9 % [facility] ([place] RDW SD 42.3 35.7 - 48.1 fL [facility] ([place]) NRBC abs 0.00 0.00 - 0.01 K/cumm [facility] ([place]) Blood Venous blood specimen / Unknown 08/27/2024 2:09 PM CDT 08/27/2024 2:17 PM CDT Justyn Jim MD LAB BLOOD ORDERABLES Final Res ult [facility] ([place] 1 [facility] [place] [address] * ABO/Rh (08/27/2024 2:09 PM CDT) ABO/Rh O Positive Blood 08/27/2024 2:09 PM CDT 08/27/2024 2:17 PM CDT Narrative [facility] - 08/27/2024 2:51 PM CDT Has the patient had Daratumumab or Isatuximab in the past 6 months?->Unknown Justyn Jim MD LAB BLOOD BANK TEST ORDERABLES Final Result Performing Organization Address [facility] Co de Phone Number [facility] ([place] 1 [facility] [place] [address] * Antibody screen (08/27/2024 2:09 PM CDT) Samir, indirect, Gel Interpretation Negative ABSC Blood 08/27/2024 2:09 PM CDT 08/27/2024 2:17 PM CDT Narrative [facility] - 08/27/2024 2:52 PM CDT Has the patient had Daratumumab or Isatuximab in the past 6 months?->Unknown Justyn Jim MD LAB BLOOD BANK TEST ORDERABLES Final Result [facility] ([place]) [address] Department [place] [address] * Lipase (08/27/2024 2:09 PM CDT) Lipase 23 10 - 99 Units/L Blood Venous blood specimen / Unknown 08/27/2024 2:09 PM CDT 08/27/2024 2:17 PM CDT Justyn Jim MD LAB BLOOD ORDERABLES Final Res ult [facility] ([place]) 1 [facility] [place] [address] * Comprehensive metabolic panel (08/27/2024 2:09 PM CDT) Sodium 139 135 - 145 mmol/L Potassium, pl 3.5 3.3 - 4.9 mmol/L [facility] Chloride 98 97 - 110 mmol/L [facility] CO2 29 22 - 32 mmol/L [facility] ([place] Anion gap 12 2 - 15 mmol/L [facility] ([place] BUN 14 6 - 25 mg/dL [facility] ([place]) Creatinine 0.71 0.60 - 1.10 mg/dL [facility] ([place]) Glucose 122 70 - 199 mg/dL [facility] ([place] Comment: Interpretive Data Fasting glucose >/= 126 mg/dl is diagnostic for diabetes. Fasting is defined as no caloric intake for at least 8 hours. Fasting glucose between 100 mg/dl to 125 mg/dl is diagnostic of prediabetes. In a patient with classic symptoms of hyperglycemia or hyperglycemic crisis, a random glucose >/= 200 mg/dl is diagnostic for diabetes. In the absence of unequivocal hyperglycemia, results should be confirmed by repeat testing. The classification and Diagnosis of Diabetes Diabetes Care 2021; 46: S19-S40. Current interpretive data was last revised 2022. Calcium 9.5 8.5 - 10.3 mg/dL [facility] ([place]) Bilirubin, total 0.4 0.1 - 1.2 mg/dL [facility] ([place]) Protein, pl 7.2 6.5 - 8.5 g/dL [facility] ([place]) Albumin 4.3 3.5 - 5.0 g/dL [facility] ([place]) Alk phos 114 40 - 130 Units/L [facility] ([place] ALT 21 7 - 45 Units/L [facility] AST 21 10 - 45 Units/L [facility] ([place]) Blood 08/27/2024 2:09 PM CDT 08/27/2024 2:17 PM CDT us Justyn Jim MD LAB BLOOD ORDERABLES Final Res ult [facility] ([place]) 1 [facility] [place] [address] from Last 3 Months Insurance MEDICARE [facility] MEDICARE [facility] MEDICARE [employer] Advance Directives For more information, please contact: [phone] * Full Code (Latest Code Status on File) Date Activated Date Inactivated Comments 10/16/2018 3:34 PM 10/17/2018 1:22 PM Care Teams Infectious Disease Physician Relationship Specialty Start Date End Date Candice Dallas NP [facility] [place] [address] PCP - General Nurse Practitioner 09/04/24
--- OUTSIDE RECORDS SUMMARY | 2024-10-02 10:11 | XMS_ITS | Encounter Summary ---
Author Organization [facility] Address [facility] [facility] [place] [address] Care Team Providers Care Online Journalist Name Role Phone Unavailable Primary Care Provider Unavailabl e Encounter Details Date Type Department Care Team (Late st Contact Info) Description 01/03/2019 Lab Requisition [facility] [address] [place] [address] Roverto Johnson MD [address] [place] [id number] Illness Social History Tobacco Use Types Packs/Day Years Used Date Smoking Tobacco: Every Day Cigarettes Smokeless Tobacco: Never Alcohol Use Standard Drinks/Week Comments No 0 (1 standard drink = 0.6 oz pur e alcohol) Comments No Sex and Gender Information Value Date Recorded Sex Assigned at Not on file Legal Sex Female 3:52 PM CDT Gender Identity Not on file Sexual Orientation Not on file documented as of this encounter Plan of Treatment Not on file documented as of this encounter Procedures Procedure Name Priority Date/Time Associated Diagnosis Comments PATHOLOGY TISSUE Routine 01/01/2019 8:57 AM CDT Illness documented in this encounter Results * PATHOLOGY TISSUE (01/01/2019 8:57 AM CDT) Case Report Surgical Pathology Report Case: [id number] Authorizing Provider: Roverto Johnson MD Collected: 01/01/2019 08:57 AM Pathologist: Emely Wolf MD Received: 01/03/2019 08:58 AM Specimen: Colon Sigmoid 01/04/2019 12:02 PM CDT [facility] Final Diagnosis Large intestine, sigmoid polyp, biopsy (A): - Tubular adenoma 01/04/2019 12:02 PM [facility] Microscopic Description and Comment Microscopic examination substantiates the final diagnosis. 01/04/2019 12:02 PM [facility] Clinical History The patient is a 63-year-old woman who is here for screening for malignant colorectal neoplasm. Operative procedure/findings: colonoscopy 01/04/2019 12:02 PM [facility] Gross Description The requisition and specimen label(s) are identified with the patient name, Natalie Davalos Received in formalin, specimen A, sigmoid polyp , is a single yellow-quintanilla polypoid tissue fragment measuring 0.6 cm, submitted in toto in cassette A1. /met 01/04/2019 12:02 PM [facility] Disclaimer The performance characteristics of all immunohistochemical and indirect immunofluorescence stains (if any) cited in this report were determined by the [facility] of [facility]. Some of these tests were developed by our own laboratory and have not been cleared or approved by the US Food and Drug Administration. The FDA does not require this test to go through premarket FDA review. These tests are used for clinical purposes. They should not be regarded as investigational or for research. This laboratory is certified under the Clinical Laboratory Improvement Amendments (CLIA) as qualified to perform high complexity clinical laboratory testing. This case has been personally reviewed and interpreted by the attending (teaching) pathologist. 01/04/2019 12:02 PM [facility] Embedded Images 01/04/2019 12:02 PM [facility] Pathology/Cytolo gy ENTIRE SIGMOID COLON / Unknown 01/01/2019 8:57 AM CDT 01/03/2019 8:58 AM CDT us Roverto Johnson MD LAB - PATHOLOGY/CYTOLOGY ORDERA BLES Final Result [facility] [address] [phone] documented in this encounter Visit Diagnoses Diagnosis Illness Other unknown and unspecified cause of morbidity or mortality documented in this encounter
--- OUTSIDE RECORDS SUMMARY | 2024-10-02 10:11 | XMS_ITS ---
Author Organization [facility] Address [address] [place] [address] Care Team Providers Care Charter Driver Name Role Phone Nestor Devlin Primary Care Provider Unavailab Ronny Tate Unavailable [phone] Allergies Allergen (clinical drug ingredient) Drug/Non Drug Allergy documented on EMR Reaction Allergy Type Onset Date Status amoxicillin Amoxicillin Unknown Drug Allergy Act demetrice Substance with 3-eohrici-2-methylglutar yl-coenzyme A reductase inhibitor mechanism of action (substance) Statins Unknown Drug Allergy Active Substance with sulfonamide structure and antibacterial mechanism of action (substance) Sulfa Antibiotics Unknown Drug Allergy Active REASON FOR VISIT CONSTIPATION Medications Medication SIG (Take, Route, Frequency, Duration) Notes Start Date End Date Status Sutab 2994-919-[address] dose the evening before and second dose the morning of colonoscopy Orally Twice a day for 1 day(s) 07/12/2023 Active Glimepiride 2 MG 1 tablet with breakf ast or the first main meal of the day Orally Once a day Active hydroCHLOROthiazide 25 MG 1 tablet in e morning Orally Once a day Active amLODIPine Besylate 10 MG 1 tablet Orally Once a day Active Social History Tobacco Use: Social History Observation Description Date Details (start date - stop date) Current Smoker NA - NA Tobacco Control (Standard) Question Answer Notes Tobacco use: Current smoker Vital Signs Blood pressure systolic 141 mm Hg 07/12/19 24 Blood pressure diastolic 87 mm Hg 024 Height 69 in 07/12/2023 Weight 191 lbs 07/12/2023 BMI 28.2 kg/m2 07/12/2023 Heart Rate 82 /min 07/12/2023 Procedures Procedure Date Ordered Date Performed Result Body Sit e -COLON 07/12/2023 N/A Encounters Encounter Location Date Provider Diagnosis Ronny Capone MD [address] [place] [address] 07/12/2023 Ronny Capone History of colonic polyps Z86.010 and Constipation K59.00 Assessments Encounter Date Diagnosis (ICD Code) Assessment Notes Treatment Notes Treatment Clinical Notes Section Notes 07/12/2023 History of colonic polyps (ICD-10 - Z86.010) She has a history of polyps and is due for surveillance colonoscopy. The previous attempts in December was unsuccessful due to a tortuous, angled sigmoid colon. I discussed options with her such as barium enema and Cologuard but we have decided to proceed with colonoscopy. I will use a water immersion technique and hopefully be successful xc completing the colonoscopy. Since the earlier examination was successful I think a successful outcome is likely this time. We discussed potential risk of perforation. If colonoscopy was not successful we will try to get a barium enema that day if available. Outside records reviewed. Instructed to call the office if new or worsening symptoms develop. This note was created with speech recognition software and may contain errors due to phonetic misinterpretatio n. 07/12/2023 Constipation (ICD-10 - K59.00) She has a history of polyps and is due for surveillance colonoscopy. The previous attempts in December was unsuccessful due to a tortuous, angled sigmoid colon. I discussed options with her such as barium enema and Cologuard but we have decided to proceed with colonoscopy. I will use a water immersion technique and hopefully be successful xc completing the colonoscopy. Since the earlier examination was successful I think a successful outcome is likely this time. We discussed potential risk of perforation. If colonoscopy was not successful we will try to get a barium enema that day if available. Outside records reviewed. Instructed to call the office if new or worsening symptoms develop. This note was created with speech recognition software and may contain errors due to phonetic misinterpretatio n. Plan Of Treatment Medication Medication Name Sig Start Date Stop Date Notes Sutab 2138-803-483 MG [address] dose the evening before and second dose the morning of colonoscopy Orally Twice a day for 1 day(s) 07/12/2023 Pending Test Test Name Order Date -COLON 07/12/2023 Progress Notes * LARA DAVALOS: 4 (68 yo F)Acc No.[id number]:07/12/2023 Progress Notes Patient: MEGAN SKAGGS Provider: Jhonatan Capone MD :1955 A ge:67 Y S ex:Female Date:07/12/2023 Address:[address] [place], [place] [id number] Pcp:Nestor Devlin Subjective: * Chief Complaints: * C ONSTIPATION * HPI: : INTIAL HISTORY June 2023Shjane has a history of polyps from a colonoscopy in over 3 years ago. She was having her surveillance colonoscopy in December but the sigmoid colon was too tortuous and angled and the scope was not able to advance beyond 35 cm. The previous examination by the same endoscopist was complete to the cecum and apparently not difficult. A barium enema could not be arranged that day and she has not been able to do a followup up to present time. Clinically she is doing well except for some mild chronic constipation. * ROS: 1 0 point ROS negative except as per HPI. * Medical History: * Surgical History: * Hospitalization/Major Diagno stic Procedure: * Family History: F ather: diagnosed with Hypertension, Stroke. kidney disease-sister diabetes-grandmother assthma, lung cancer-aunt bone cancer-mother, grandfather. * Social History: T obacco Use: T obacco Control (Standard) T obacco use: C urrent smoker. * Medications: T akinghydroCHLOROthiazide 25 MG Tablet 1 tablet in the morning Orally Once a day Glimepiride 2 MG Tablet 1 tablet with breakfast or the first main meal of the day Orally Once a day amLODIPine Besylate 10 MG Tablet 1 tablet Orally Once a day Taking hydroCHLOROthiazide 25 MG Tablet 1 tablet in the morning Orally Once a day Taking Glimepiride 2 MG Tablet 1 tablet with breakfast or the first main meal of the day Orally Once a day Taking amLODIPine Besylate 10 MG Tablet 1 tablet Orally Once a day * Allergies: S tatinsAmoxicillinSulfa Antibioticsno[Allergies Verified] Objective: * Vitals: B P:141/87mm Hg, Ht: 69 in, Wt:191lbs, BMI:28.2Index, HR:82, Ht-cm: 175.26, Wt-k.64. * Examination: G ENERAL EXAMINATION: PATIENT: w ell developed, well nourished, in no acute distress. EYES: p upils equal, round. EARS: h earing grossly normal. ORAL CAVITY: m ucosa moist, no lesions. THROAT: c lear. NECK/THYROID: n daniel supple, full range of motion, no cervical lymphadenopathy. SKIN: w arm and dry, no suspicious lesions. HEART: r egular rate and rhythm, S1, S2 normal. LUNGS: c lear to auscultation bilaterally. ABDOMEN s oft, nondistended, bowel sounds present, no mass palpated, o verweight, n ontender. EXTREMITIES: n o clubbing, cyanosis, or edema. NEUROLOGIC: m otor and sensory grossly intact, nonfocal.? Assessment: * Assessment: 1. C onstipation - K59.00 (Primary) 2 . H istory of colonic polyps - Z86.010 She has a history of polyps and is due for surveillance colonoscopy. The previous attempts in December was unsuccessful due to a tortuous, angled sigmoid colon. I discussed options with her such as barium enema and Cologuard but we have decided to proceed with colonoscopy. I will use a water immersion technique and hopefully be successful xc completing the colonoscopy. Since the earlier examination was successful I think a successful outcome is likely this time. We discussed potential risk of perforation. If colonoscopy was not successful we will try to get a barium enema that day if available. Outside records reviewed. Instructed to call the office if new or worsening symptoms develop. This note was created with speech recognition software and may contain errors due to phonetic misinterpretation. Plan: * Treatment: 2. H istory of colonic polyps P rocedure: -COLON 3. O thers Start Sutab Tablet, 1304-585-806 MG, 12 tablets the first dose the evening before and second dose the morning of colonoscopy, Orally, Twice a day, 1 day(s), 24. * Procedure Codes: * * Sign off status: Completed true * Provider: Jhonatan Capone MD Date: 0 07/12/2023 Generated for Sami cam/Altaf/Marlonitting on: 0 10/02/2024 11:11 AM EDT History and Physical Notes * HPI (History of Present Illness) Category Sub-Category Detail Notes Category Not es INTIAL HISTORY June 2023Shabnam has a history of polyps from a colonoscopy in over 3 years ago. She was having her surveillance colonoscopy in December but the sigmoid colon was too tortuous and angled and the scope was not able to advance beyond 35 cm. The previous examination by the same endoscopist was complete to the cecum and apparently not difficult. A barium enema could not be arranged that day and she has not been able to do a followup up to present time. Clinically she is doing well except for some mild chronic constipation. Examination Category Sub-Category Detail Notes Category Not es GENERAL EXAMINATION PATIENT: well develop ed, well nourished, in no acute distress HEENT EYES: pupils equal, round EARS: hearing grossly norm al THROAT: clear NECK/THYROID: neck supple, full ra nge of motion, no cervical lymphadenopathy HEART: regular rate and rhy thm, S1, S2 normal LUNGS: clear to auscultatio n bilaterally ABDOMEN: soft, nondistended, bowel sounds present, no mass palpated, overweight, nontender NEUROLOGIC: motor and sensory gr ossly intact, nonfocal SKIN: warm and dry, no kerry picious lesions EXTREMITIES: no clubbing, cyanosi s, or edema ORAL CAVITY: mucosa moist, no les ions
--- OUTSIDE RECORDS SUMMARY | 2024-10-02 10:11 | XMS_ITS | Clinical Summary ---
Author Organization [facility] Address [facility] [place] [address] Care Team Providers Care Blood Donor Recruiter Supervisor Name Role Phone Unavailable Primary Care Provider Unavailabl e Source Comments [facility],non-owned Affiliates and Associated Physician Practices is amultiple site organization consisting of ambulatory clinics and hospital sitesin [place], [place], [place] and [place]. This disclosure is being madepursuant to the Care Everywhere program and may not contain all information available regarding this patient. Last updated 18.[facility] Allergies Active Allergy Reactions Criticality Noted Date Comments Codeine 02/21/2017 Levofloxacin 02/21/2017 Causes arthritis to flare up Lisinopril 02/21/2017 Antihypertensives Losartan Potassium 02/21/2017 Lovastatin 02/21/2017 Antihyperlipidemics Medications * Be aware that medications may not be up to date on this document. Alwaysverify current medications with the patient. amLODIPine (NORVASC) 5 MG tablet Take 5 mg by mouth 2 times daily Active clobetasol (TEMOVATE) 0.05 % cream Apply to affected area 2 times daily Left leg Active hydroCHLOROthia zide (HYDRODIURIL) 25 MG tablet Take 25 mg by mouth once daily Active Multiple Vitamins-Minera ls (MULTIVITAMIN ADULTS PO) Take by mouth once daily Active Dickens-3 Fatty Acids (FISH OIL) 1200 MG Take 2,400 mg by mouth once daily Active albuterol HFA (PROAIR HFA) 108 (90 BASE) MCG/ACT inhaler Inhale 2 Puffs by mouth every 6 hours as needed Active Active Problems Problem Noted Date Diagnosed Date HTN (hypertension) 02/21/2017 Overweight(278.02) 02/21/2017 Overview (02/27/2017): IMO Update 02/27/2017 Tobacco use disorder 02/21/2017 Type 2 diabetes mellitus 02/21/2017 Arthritis 02/21/2017 Social History Tobacco Use Types Packs/Day Years Used Date Smoking Tobacco: Every Day Cigarettes Smokeless Tobacco: Never Tobacco Cessation:Ready to Q uit: No; Counseling Given: Yes Alcohol Use Standard Drinks/Week Comments No 0 (1 standard drink = 0.6 oz pur e alcohol) Comments No Sex and Gender Information Value Date Recorded Sex Assigned at Not on file Legal Sex Female 3:52 PM CDT Gender Identity Not on file Sexual Orientation Not on file Last Filed Vital Signs Vital Sign Reading Time Taken Comments Blood Pressure 126/83 03/03/2017 1:50 PM CDT Pulse 89 03/03/2017 1:50 PM CDT Temperature 36.4 C (97.6 F) 03/03/2017 1:50 PM CDT Respiratory Rate - - Oxygen Saturation 92% 03/03/2017 1:50 PM CDT Inhaled Oxygen Concentration - - Weight 91.6 kg (202 lb) 03/03/2017 1:50 PM CDT Height 170.2 cm (5' 7 ) 03/03/2017 1:50 PM CDT Body Mass Index 31.64 03/03/2017 1:50 PM CDT Plan of Treatment Health Maintenance Due Date Last Done Comments BONE DENSITY TESTING 1955 COLOGUARD (AGES 45-75) - COL ON CA SCREENING 1955 COLON MONITORING 1955 COLONOSCOPY - COLON CA SCREENING 1955 CT COLONOGRAPHY - COLON CA SCREENING 1955 Colorectal Cancer Screening 1955 FIT - COLON CA SCREENING 1955 FLEX SIG - COLON CA SCREENING 1955 LIPID TESTING 1955 MAMMOGRAM 1955 HEPATITIS C SCREENING 09/26/1971 DTAP/TDAP/TD VACCINES (1 - Tdap) 1972 PNEUMOCOCCAL VACCINE 50+ (1 of 2 - PCV) 1972 ZOSTER VACCINE (1 of 2) 10/01/2003 SCREENING FOR DIABETES 03/03/2017 COVID-19 VACCINE ( - 2023-2 5 season) 2024 DEPRESSION SCREENING 05/30/2024 INFLUENZA VACCINE (Season Ended) 2025 Respiratory Syncytial Virus (RSV) Vaccine Pt: or over 60 yrs (1 - 1-dose 75+ series) 2028 HEPATITIS B VACCINE Aged Out No longe r eligible based on patient's age to complete this topic HIB VACCINE Aged Out No longer eligi ble based on patient's age to complete this topic HPV VACCINE Aged Out No longer eligi ble based on patient's age to complete this topic MENINGOCOCCAL (Group B) VACC INE SHARED DECISION-MAKING Aged Out No longer eligibl e based on patient's age to complete this topic MENINGOCOCCAL GROUPS A/C/Y/W VACCINE Aged Out No longer eligible b ased on patient's age to complete this topic Insurance MEDICARE Member Subscriber Plan / Payer (Ef fective 2018-Present) Name:Megan Davalos Member ID:[id number] Relation to Subscriber:Self Name:Megan Davalos Subscriber ID:[id number] Payer ID:Not on file Group ID:Not on file Type:Medicare Address: [facility] [address] [place] [address] [employer] MEDICARE Member Subscriber Plan / Payer (Ef fective 2018-Present) Name:Dustin Davalosyn Y Member ID:[id number] Relation to Subscriber:Self Name:EVELINA DAVALOSBETH Case Subscriber ID:[id number] Payer ID:Not on file Group ID:Not on file Type:Medicare Address: [facility] [address] [place] [address] [employer]
--- OUTSIDE RECORDS SUMMARY | 2024-10-02 10:11 | XMS_ITS | Clinical Summary ---
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 Gender Identity Not on file Sexual Orientation Not on file Plan of Treatment Health Maintenance Due Date Last Done Comments Colorectal Cancer Screening Colonoscopy (10 Years) 1955 Hepatitis C 10/01/1971 DTaP, Tdap and Td Vaccines ( 1 - Tdap) 1972 Mammogram Screening 1993 Pneumococcal Vaccine: 50+ Ye ars (1 of 1 - PCV) 10/01/2003 Zoster Vaccines (1 of 2) 10/01/2003 Dexa Scan (General) 2018 COVID-19 Vaccine (2023-2 5 season) 2024 RSV Immunization or 60+ Years (1 - 1-dose 75+ series) 2028 Meningococcal B Vaccine Aged Out No l onger eligible based on patient's age to complete this topic Meningococcal Vaccine Aged Out No nelson elizabeth eligible based on patient's age to complete this topic RSV Immunizations Under 20 Months Aged Out No longer eligible based on patient's age to complete this topic
--- OUTSIDE RECORDS SUMMARY | 2024-10-02 10:11 | XMS_ITS | Clinical Summary ---
Author Organization [facility] Address [address] [place] [address] Care Team Providers Care Salvationist Name Role Phone Candice Dallas NP Primary Care Provider [phone] Allergies Active Allergy Reactions Criticality Noted Date Comments Last Inhibitors Anaphylaxis High 02/21/2017 Antihypertensives Amoxicillin-Pot Clavulanate Swelling High 01/09/2019 Facial swelling. Rash Codeine Rash Medium 10/03/2018 Levofloxacin Other (See comments) Low 02/21/2017 Causes arthritis to flare up Losartan Potassium Unknown 02/21/2017 Wrmsxig-Ead-Wlf Reductase Inhibitors Itching,Muscle pain,Other (See comments) Medium [...] 2 (two) times a day Active multivit-minera y-acxq-ksfqgg tabletIndicatio ns:supplement Take 1 tablet by mouth [...] PROCEDURE PERFORMED (Kristy 10/16/18) Left infrastructure maxillectomy. Encounters Date Type Department Care Team Description 09/10/2024 Results Follow-Up [facility] Gastroenterology at [address] [address] Anika Vyas PA 09/04/2024 2:50 PM CDT - 09/04/2024 11:59 PM CDT Hospital Encounter [facility] 1 [place] [address] Colitis; Chronic constipation; Bloating Discharge Disposition: Discharge to home or self care 09/04/2024 1:45 PM CDT Office Visit [facility] Gastroenterology at [address] [place] [address] Anika Vyas PA Colitis (Primary Dx); Chronic constipation; Bloating 09/04/2024 Telephone [facility] Gastroenterology at [address] [place] [address] Beatrice Young LPN 08/27/2024 4:05 PM CDT - 08/27/2024 6:10 PM CDT Emergency [facility] Emergency Department 1 [place] [address] Colitis (Primary Dx) Discharge Disposition: Discharge to home or self care from Last 3 Months Medical History Medical History Date Comments Type 2 diabetes mellitus (HCC) GERD (gastroesophageal reflux disease) Hypertension Social History Tobacco Use Types Packs/Day Years [...] on file 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 Gender Identity Not on file Sexual Orientation Not on file Obstetrics History Last Filed Vital Signs Vital Sign Reading [...] Description 10/17/2024 7:55 AM CDT Hospital Encounter [facility] 1 [place] [address] Katharine Espinoza MD [address] [place] [address] 10/17/2024 7:55 AM CDT - 10/17/2024 8:25 AM CDT Surgery [facility] 1 [place] [address] Katharine Espinoza MD [address] [place] [address] COLONOSCOPY Scheduled Procedures Name Priority Associated Diagnoses Date/Ti me COLONOSCOPY Colitis 10/17/2024 7:55 AM CDT Health Maintenance Due Date Last Done Comments Colon Cancer Screening-Colonoscopy 1955 Depression Screening 1955 Fall Risk Assessment 1955 Hepatitis C Screening 1955 Osteoporosis Screening-Bone Density Scan 1955 DTaP/Tdap/Td Vaccine (1 - Tdap) 1964 Hepatitis B Screening 10/01/1971 Lung Cancer Screening 10/01/2003 Pneumococcal vaccine 65+ (1 of 1 - PCV) 10/01/2003 Zoster Vaccine (1 of 2) 10/01/2003 Well Visit 65+ 2018 Breast Cancer Screening-Mammogram 12/10/2021 021 Influenza Vaccine (Season Ended) 2025 Procedures Procedure Name Priority Date/Time Associated Diagnosis [...] Gabriel Dawn M.D. RW: STEF Report ID: [id number] Reading Location: [id number] Procedure Note Gabriel Dawn MD - 09/09/2024 [...] Gabriel Dawn M.D. RW: STEF Report ID: [id number] Reading Location: [place] [address] us Anika MENSAH IMG XR PROCEDURES Final Result * ABO / Rh Confirmation Testing (08/27/2024 5:01 PM CDT) ABO/Rh Confirmation O Positive [facility] Blood 08/27/2024 5:01 PM CDT 08/27/2024 5:57 PM CDT Narrative [facility] ([place]) - 08/27/2024 6:27 PM CDT Notified Latesha in ER for the need of a confirmatory type to be drawn. 08/27/2024 14:53:29 CDT [id number] us Justyn Jim MD LAB BLOOD ORDERABLES Final Res ult [facility] ([place]) 1 [facility] [place] [place] [address] DONITA * Hemoglobin and hematocrit (08/27/2024 5:01 PM CDT) Hgb 13.0 11.9 - 15.5 g/dL Hct 39.2 35.6 - 45.5 % [facility] ([place]) Blood 08/27/2024 5:01 PM CDT 08/27/2024 5:05 PM CDT us Rabia MENSAH LAB BLOOD ORDERABLES Nini seth Result [facility] [place] 1 [facility] [place] [address] * CT Abdomen Pelvis W Contrast (08/27/2024 [...] by Ramsey Rick M.D. JR: Report ID: [id number] Reading Location: [place] [address] Procedure Note Ramsey Rick MD - 08/27/2024 [...] by Ramsey Rick M.D. JR: Report ID: [id number] Reading Location: [place] [address] us Elmer Hadley MD IMG CT PROCEDURES Final [...] BLOOD ORDERABLES Final Res ult [facility] ([place]) 1 [facility] [place] [address] * (ABNORMAL) Differential, auto (08/27/2024 2:09 PM [...] Imm gran pct 0.4 % [facility] ([place]) Comment: Interpretive Data Percent cell [...] revised on 2017. Monocyte pct 6.4 % [facility] ([place]) Comment: Interpretive Data Percent cell [...] revised on 2017. Basophil pct 0.3 % [facility] ([place]) Comment: Interpretive Data Percent cell count reference ranges are not reported, since discordance with absolute values may lead to misinterpretation of CBC data. Current Interpretive Data was last revised on 2017. Blood 08/27/2024 2:09 PM CDT 08/27/2024 2:17 PM CDT us Justyn Jim MD LAB BLOOD ORDERABLES Final Res ult [facility] ([place]) 1 [facility] [place] [address] * Urinalysis reflex to microscopic and culture Urine (08/27/2024 2:09 PM CDT) Color, ur Yellow Yellow Clarity, ur Clear Clear [facility] ([place]) Specific gravity, ur 1.020 1.003 - 1.030 [facility] ([place]) pH, urine 6.0 [facility] ([place]) Comment: Interpretive Data U rine pH is affected by diet, medications, systemic acid-base disturbances, and renal tubular function. pH may affect urinary stone formation. For example, urine pH below 6.0 may help reduce the tendency for calcium phosphate stones and pH greater than 6.0 may reduce the tendency for uric acid stone formation. Source: [facility] Current Interpretive Data was last revised on [...] MICROBIOLOGY - GENERAL ORD ERABLES Final Result [facility] ([place]) 1 [facility] [place] [address] * (ABNORMAL) CBC with auto differential (08/27/2024 [...] RDW SD 42.3 35.7 - 48.1 fL [facility] ([place]) NRBC abs 0.00 0.00 - 0.01 K/cumm [facility] ([place]) Blood Venous blood specimen / Unknown 08/27/2024 2:09 PM CDT 08/27/2024 2:17 PM CDT Justyn Jim MD LAB BLOOD ORDERABLES Final Res ult [facility] ([place]) 1 [facility] [place] [address] * ABO/Rh (08/27/2024 2:09 PM CDT) ABO/Rh O Positive Blood 08/27/2024 2:09 PM CDT 08/27/2024 2:17 PM CDT Narrative [facility] ([place]) - 08/27/2024 2:51 PM CDT Has the patient had Daratumumab or Isatuximab in the past 6 months?->Unknown Justyn Jim MD LAB BLOOD BANK TEST ORDERABLES Final Result [facility] ([place]) 1 [facility] [place] [address] * Antibody screen (08/27/2024 2:09 PM CDT) Pathologist [facility] Samir, indirect, Gel Interpretation Negative ABSC Blood 08/27/2024 2:09 PM CDT 08/27/2024 2:17 PM CDT [facility]ative [facility]) - 08/27/2024 2:52 PM CDT Has the patient had Daratumumab or Isatuximab in the past 6 months?->Unknown Justyn Jim MD LAB BLOOD BANK TEST ORDERABLES Final Result [facility] ([place]) 1 [place] [address] * Lipase (08/27/2024 2:09 PM CDT) [facility] Lipase 23 10 - 99 Units/L Blood Venous blood specimen / Unknown 08/27/2024 2:09 PM CDT 08/27/2024 2:17 PM CDT Justyn Jim MD LAB BLOOD ORDERABLES Final Res ult [facility]CA[facility] ([place]) 1 [place] [address] * Comprehensive metabolic panel (08/27/2024 2:09 PM CDT) [facility] Sodium 139 135 - 145 mmol/L Potassium, pl 3.5 3.3 - 4.9 mmol/L [facility] ([place]) Chloride 98 97 - 110 mmol/L [facility] ([place]) CO2 29 22 - 32 mmol/L [facility] ([place]) Anion gap 12 2 - 15 mmol/L [facility] ([place]) BUN 14 6 - 25 mg/dL [facility] ([place]) Creatinine 0.71 0.60 - 1.10 mg/dL [facility] ([place]) Glucose 122 70 - 199 mg/dL [facility] ([place]) Comment: Interpretive Data Fasting glucose [...] classification and Diagnosis of Diabetes Diabetes Care 202; 46: S19-S40. Current interpretive data was last [...] MD LAB BLOOD ORDERABLES Final Res ult [facility] 1 [facility] [place] [address] from Last 3 Months Insurance MEDICARE [employer] [place] MEDICARE [employer] [place] MEDICARE [employer] Advance Directives For more information, please contact: [phone] * Full Code (Latest Code Status on File) Date Activated Date Inactivated Comments 10/16/2018 3:34 PM 10/17/2018 1:22 PM Care Teams Salvationist Relationship Specialty Start Date End Date Candice Dallas NP [facility] [place] [address] PCP - General Nurse Practitioner 09/04/24
--- OUTSIDE RECORDS SUMMARY | 2024-10-02 10:11 | XMS_ITS | Patient Health Record ---
Author Organization [facility] Address [address] [place] [address] Care Team Providers Care Horologist Name Role Phone Nestor Devlin Primary Care Provider Unavailab Ronny Tate Unavailable [phone] Allergies Allergen (clinical drug ingredient) Drug/Non Drug Allergy documented on EMR Reaction Allergy Type Onset Date Status amoxicillin Amoxicillin Unknown Drug Allergy Act demetrice Substance with 4-rqquvfc-3-methylglutar yl-coenzyme A reductase inhibitor mechanism of action (substance) Statins Unknown Drug Allergy Active Substance with sulfonamide structure and antibacterial mechanism of action (substance) Sulfa Antibiotics Unknown Drug Allergy Active Reason For Referral No Information Medications Medication SIG (Take, Route, Frequency, Duration) Notes Start Date End Date Status Sutab 7401-610-528 MG [address] dose the evening before and second dose the morning of colonoscopy Orally Twice a day for 1 day(s) 07/12/2023 Active Glimepiride 2 MG 1 tablet with breakf ast or the first main meal of the day Orally Once a day Active hydroCHLOROthiazide 25 MG 1 tablet in th e morning Orally Once a day Active amLODIPine Besylate 10 MG 1 tablet Orally Once a day Active Social History Tobacco Use: Social History Observation Description Date Details (start date - stop date) Current Smoker NA - NA Tobacco Control (Standard) Question Answer Notes Tobacco use: Current smoker Problems Problem Type SNOMED Code ICD Code Onset Dates Problem Status W/U Status Risk Notes Problem Constipation (29181809) Constipation (K59.00) Active confirmed Problem History of polyp of colon (situation) (581387964) History of colonic polyps (Z86.010) Active confirmed Plan Of Treatment Pending Test Test Name Order Date -COLON 07/12/2023 Insurance Providers Payer Name Payer Address Payer Phone Subscriber Number Group Number Insured Name Patient Relationship to Insured Coverage Start Date Coverage End Date MEDICARE [address] Part B Claims and [place] [id number] [id number] MEGAN DAVALOS Self - patient is the insured [address] [place] [address] [id number] MEGAN DAVALOS Self - patient is the insured Medical (General) History Medical History History ICD Code appendectomy cholecystectomy broken leg shoulder repair hysterectomy
== END 2024-10-02 09:29 | disposition home or self-care (01) ==
PROVIDERS: PCP Nurse Practitioner Adult Health; Visit Provider Nurse Practitioner Adult Health
DX: M47.892 Other spondylosis, cervical region (principal); M46.1 Sacroiliitis, not elsewhere classified
CPT/HCPCS: 72050

== ENCOUNTER 2024-10-08 07:48 | Outpatient (CLI) | payer MEDICARE, SELFPAY ==
--- NOTE | ~2024-10-08 | MM_ITS ---
EXAMINATION: MM screening arturo BI w brad HISTORY: Screening mammogram TECHNIQUE: Craniocaudal and mediolateral oblique 3-D tomosynthesis images were obtained and synthetic 2-D images were generated. CAD analysis was submitted and interpreted. COMPARISON: No prior mammogram is available for comparison at this institution. BREAST PARENCHYMAL COMPOSITION:Not Dense. There are scattered areas of fibroglandular density. FINDINGS: There is relative asymmetry with increased density in the upper, outer left breast as ken red to the right. Benign lymph node present in the upper, outer right breast. No suspicious masses or calcifications. IMPRESSION: Asymmetric density in the upper, outer left breast. Spot compression views and possibly ultrasound ar e recommended for further evaluation. BI-RADS Category 0: Incomplete: Needs additional imaging evaluation. Reviewed, dictated and finalized at [facility]. IMPRESSION: Asymmetric density in the upper, outer left breast. Spot compression views and possibly ultrasound are recommended for further evaluation. BI-RADS Category 0: Incomplete: Needs additional imaging evaluation.
--- OUTSIDE RECORDS SUMMARY | 2024-10-08 07:57 | XMS_ITS | Patient Health Record ---
Author Organization [facility] Address [address] [place] [address] Care Team Providers Care Roof Cement And Paint Maker Helper Name Role Phone Nestor Devlin Primary Care Provider Unavailab Ronny Tate Unavailable [phone] Allergies Allergen (clinical drug ingredient) Drug/Non Drug Allergy documented on EMR Reaction Allergy Type Onset Date Status amoxicillin Amoxicillin Unknown Drug Allergy Act demetrice Substance with 0-[place]-2-methylglutar yl-coenzyme A reductase inhibitor mechanism of action (substance) Statins Unknown Drug Allergy Active Substance with sulfonamide structure and antibacterial mechanism of action (substance) Sulfa Antibiotics Unknown Drug Allergy Active Reason For Referral No Information Medications Medication SIG (Take, Route, Frequency, Duration) Notes Start Date End Date Status Sutab 2726-558-446 MG [address] dose [...] Status W/U Status Risk Notes Problem Constipation (80196620) Constipation (K59.00) Active confirmed Problem History of colonic polyps (Z86.010) Active confirmed Plan Of Treatment Pending Test Test Name Order Date -COLON 07/12/2023 Insurance Providers Payer Name Payer Address Payer Phone Subscriber Number Group Number Insured Name Patient Relationship to Insured Coverage Start Date Coverage End Date MEDICARE [address] Part B Claims and [place] [id number] [id number] MEGAN DAVALOS Self - patient is the insured [address] [place] [address] [id number] MEGAN DAVALOS Self - patient is the insured Medical (General) History Medical History History ICD Code appendectomy cholecystectomy broken leg shoulder repair hysterectomy
--- OUTSIDE RECORDS SUMMARY | 2024-10-08 07:57 | XMS_ITS | Clinical Summary ---
Author Organization [facility] Address 1 [place] [address] Care Team Providers Care Decaler Name Role Phone Candice Dallas NP Primary Care Provider [phone] Allergies Active Allergy Reactions Criticality Noted Date Comments Last Inhibitors Anaphylaxis High 02/21/2017 Antihypertensives Amoxicillin-Pot Clavulanate Swelling High 01/09/2019 Facial swelling. 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 Encounters Date Type Department Care Team Description 09/10/2024 Results Follow-Up [facility] Gastroenterology at [address] [address] Anika Vyas PA 09/04/2024 2:50 PM CDT - 09/04/2024 11:59 PM CDT Hospital Encounter [facility] 1 [place] [address] Colitis; Chronic constipation; Bloating Discharge Disposition: Discharge to home or self care 09/04/2024 1:45 PM CDT Office Visit [facility] Gastroenterology at [address] [address] Anika Vyas PA Colitis (Primary Dx); Chronic constipation; Bloating 09/04/[address] 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 Gender Identity Not on file Sexual Orientation [...] Team (Late st Contact Info) Description 10/17/2024 8:00 AM CDT Hospital Encounter [facility] 1 [place] [address] Katharine Espinoza MD [address] [place] [address] [address], [place] [address] 10/17/2024 8:00 AM CDT - 10/17/2024 8:30 AM CDT Surgery [facility] 1 [place] [address] Katharine Espinoza MD [address] [place] [address] [place] [address] COLONOSCOPY Scheduled Procedures Name Priority Associated Diagnoses Date/Ti me COLONOSCOPY Colitis 10/17/2024 8:00 AM CDT Health Maintenance Due Date Last [...] Gabriel Dawn M.D. RW: STEF Report ID: [id number] Reading Location: [id number] Procedure Note Gabriel Dawn MD - 09/09/2024 [...] Gabriel Dawn M.D. RW: STEF Report ID: [id number] Reading Location: [place] [address] Anika MENSAH IMG XR PROCEDURES Final Result * ABO / Rh Confirmation Testing (08/27/2024 5:01 PM CDT) ABO/Rh Confirmation O Positive [facility] Blood 08/27/2024 5:01 PM CDT 08/27/2024 5:57 PM CDT Narrative [facility] ([place]) - 08/27/2024 6:27 PM CDT Notified Latesha in ER for the need of a confirmatory type to be drawn. 08/27/2024 14:53:29 CDT [id number] Justyn Jim MD LAB BLOOD ORDERABLES Final Res ult [facility] ([place]) 1 [facility] [place] [address] [facility] * Hemoglobin and hematocrit (08/27/2024 5:01 PM CDT) Hgb 13.0 11.9 - 15.5 g/dL Hct 39.2 35.6 - 45.5 % [facility] ([place]) Blood 08/27/2024 5:01 PM CDT 08/27/2024 5:05 PM CDT Rabia MENSAH LAB BLOOD ORDERABLES Nini ann Result [facility] [place] 1 [facility] Department [place] [address] * CT Abdomen Pelvis W Contrast (08/27/2024 [...] 4:38 PM - Electronically signed by Ramsey PRADHAN JR Report ID: [id number] Reading Location: [id number] Procedure Note Ramsey Rick MD - 08/27/2024 [...] by Ramsey Rick M.D. JR: Report ID: [id number] Reading Location: [place] [address] us Elmer Hadley MD IMG CT PROCEDURES [...] MD LAB BLOOD ORDERABLES Final Res ult [facility] ([place]) 1 [facility] Department [place] [address] * (ABNORMAL) Differential, auto (08/27/2024 2:09 PM [...] LAB BLOOD ORDERABLES Final Res ult [facility] ([place]) 1 [facility] Department [place] [address] * Urinalysis reflex to microscopic and culture [...] tendency for uric acid stone formation. Source: [facility] Current Interpretive Data was last revised on [...] MICROBIOLOGY - GENERAL ORD ERABLES Final Result [facility] 1 [facility] Department [place] [address] * (ABNORMAL) CBC with auto differential (08/27/2024 2:09 PM CDT) WBC 10.0(H) 3.8 - 9.9 K/cumm Hgb 13.8 11.9 - 15.5 g/dL [facility] ([place]) Hct 42.1 35.6 - 45.5 % [facility] ([place]) Plt 304 150 - 400 K/cumm [facility] ([place]) MPV 10.3 9.1 - 12.3 fL [facility] RBC 4.79 3.90 - 5.20 M/cumm [facility] ([place]) MCV 87.9 81.3 - 96.4 fL [facility] MCH 28.8 27.1 - 33.3 pg [facility] MCHC 32.8 32.3 - 35.7 g/dL [facility] ([place]) RDW CV 13.1 11.1 - 14.9 % [facility] ([place]) RDW SD 42.3 35.7 - 48.1 fL [facility] NRBC abs 0.00 0.00 - 0.01 K/cumm [facility] Blood Venous blood specimen / Unknown 08/27/2024 2:09 PM CDT 08/27/2024 2:17 PM CDT Justyn Jim MD LAB BLOOD ORDERABLES Final Res ult [facility] ([place]) 1 [facility] [place] [address] * ABO/Rh (08/27/2024 2:09 PM CDT) ABO/Rh O Positive Blood 08/27/2024 2:09 PM CDT 08/27/2024 2:17 PM CDT Narrative [facility] ([place]) - 08/27/2024 2:51 PM CDT Has the patient had Daratumumab or Isatuximab in the past 6 months?->Unknown Justyn Jim MD LAB BLOOD BANK TEST ORDERABLES Final Result [facility] ([place]) 1 [facility] [employer] [place] [address] * Antibody screen (08/27/2024 2:09 PM CDT) Samir, indirect, Gel Interpretation Negative ABSC Blood 08/27/2024 2:09 PM CDT 08/27/2024 2:17 PM CDT Narrative [facility] ([place]) - 08/27/2024 2:52 PM CDT Has the patient had Daratumumab or Isatuximab in the past 6 months?->Unknown Justyn Jim MD LAB BLOOD BANK TEST ORDERABLES Final Result Performing Organization Address City/[facility]/ZIP Co de Phone Number [facility] ([place]) 1 [facility] [place] [address] * Lipase (08/27/2024 2:09 PM CDT) [facility] Lipase 23 10 - 99 Units/L Blood Venous blood specimen / Unknown 08/27/2024 2:09 PM CDT 08/27/2024 2:17 PM CDT Justyn Jim MD LAB BLOOD ORDERABLES Final Res ult Performing Organization Address City/[facility]/ZIP Co de Phone Number [facility] ([place]) 1 [facility] [place] [address] * Comprehensive metabolic panel (08/27/2024 2:09 PM CDT) [facility] Sodium 139 135 - 145 mmol/L Potassium, pl 3.5 3.3 - 4.9 mmol/L [facility] ([place]) Chloride 98 97 - 110 mmol/L [facility] ([place]) CO2 29 22 - 32 mmol/L [facility] ([place]) Anion gap 12 2 - 15 mmol/L [facility] ([place]) BUN 14 6 - 25 mg/dL [facility] ([place]) Creatinine 0.71 0.60 - 1.10 mg/dL [facility] ([place]) Glucose 122 70 - 199 mg/dL [facility] ([place]) Comment: Interpretive Data Fasting glucose >/= [...] Final Res ult [facility] ([place]) 1 [facility] [place] [address] from Last 3 Months Insurance MEDICARE [facility] MEDICARE [facility] Advance Directives For more information, please contact: [phone] * Full Code (Latest Code Status on File) Date Activated Date Inactivated Comments 10/16/2018 3:34 PM 10/17/2018 1:22 PM Care Teams Decaler Relationship Specialty Start Date End Date Candice Dallas NP [facility] [place] [address] PCP - General Nurse Practitioner 09/04/24
--- OUTSIDE RECORDS SUMMARY | 2024-10-08 07:57 | XMS_ITS | Clinical Summary ---
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
--- OUTSIDE RECORDS SUMMARY | 2024-10-08 07:57 | XMS_ITS | Clinical Summary ---
Author Organization [facility] Address [facility] [place] [address] Care Team Providers Care Sports Information Director Name Role Phone Unavailable Primary Care Provider Unavailabl e Source Comments [facility],non-owned Affiliates and Associated Physician Practices is amultiple site organization consisting of ambulatory clinics and hospital sitesin [place], [place], [place] and [place]. This disclosure is being madepursuant to the Care Everywhere program and may not contain all information available regarding this patient. Last updated 18.[facility] Allergies Active Allergy Reactions Criticality Noted Date [...] PO) Take by mouth once daily Active [place]-3 Fatty Acids (FISH OIL) 1200 MG Take [...] age to complete this topic Insurance MEDICARE AETNA MEDICARE AETNA
--- OUTSIDE RECORDS SUMMARY | 2024-10-08 07:57 | XMS_ITS | Referral Summary ---
Author Organization [facility] Address [address] [place] [address] Care Team Providers Care Kindergarten Teacher Name Role Phone Candice Dallas NP Primary Care Provider [phone] Encounters Date Type Department Care Team Description 09/10/2024 Results Follow-Up [facility] Gastroenterology at [address] [place] [address] Anika Vyas PA 09/04/2024 2:50 PM CDT - 09/04/2024 11:59 PM CDT Hospital Encounter [facility] [address] [place] [address] Colitis; Chronic constipation; Bloating Discharge Disposition: Discharge to home or self care 09/04/2024 Telephone [facility] Gastroenterology at [address] [place] [address] Beatrice Young LPN 09/04/2024 1:45 PM CDT Office Visit [facility] Gastroenterology at [address] [address] Anika Vyas PA Colitis (Primary Dx); Chronic constipation; Bloating 08/27/2024 4:05 PM CDT - 08/27/2024 6:10 PM CDT Emergency [facility] [address] [place] [address] Colitis (Primary Dx) Discharge Disposition: Discharge to home or self care from Last 3 Months Allergies Active Allergy Reactions Criticality Noted Date Comments Last Inhibitors Anaphylaxis High 02/21/2017 Antihypertensives Amoxicillin-Pot Clavulanate Swelling High 01/09/2019 Facial swelling. 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 Gender Identity Not on file Sexual Orientation [...] Description 10/17/2024 8:00 AM CDT Hospital Encounter [facility] 1 [place] [address] Katharine Espinoza MD [address] [place] [address] [place] [address] 10/17/2024 8:00 AM CDT - 10/17/2024 8:30 AM CDT Surgery [facility] 1 [place] [address] Katharine Espinoza MD [address] [facility] [address] [place] [address] COLONOSCOPY Scheduled Procedures Name Priority Associated Diagnoses Date/Ti me COLONOSCOPY Colitis 10/17/2024 8:00 AM CDT Procedures Procedure Name Priority Date/Time [...] Gabriel Dawn M.D. RW: STEF Report ID: [id number] Reading Location: [id number] Procedure Note Gabriel Dawn MD - 09/09/2024 [...] Gabriel Dawn M.D. RW: STEF Report ID: [id number] Reading Location: [id number] us Anika MENSAH IMG XR PROCEDURES Final Result * ABO / Rh Confirmation Testing (08/27/2024 5:01 PM CDT) ABO/Rh Confirmation O Positive [facility] Blood 08/27/2024 5:01 PM CDT 08/27/2024 5:57 PM CDT Narrative [facility] ([place]) - 08/27/2024 6:27 PM CDT Notified Latesha in ER for the need of a confirmatory type to be drawn. 08/27/2024 14:53:29 CDT [id number] Justyn Jim MD LAB BLOOD ORDERABLES Final Res ult [facility] ([place]) 1 [facility] [place] [address] [facility] * Hemoglobin and hematocrit (08/27/2024 5:01 PM CDT) Hgb 13.0 11.9 - 15.5 g/dL Hct 39.2 35.6 - 45.5 % [facility]) Blood 08/27/2024 5:01 PM CDT 08/27/2024 5:05 PM CDT Rabia MENSAH LAB BLOOD ORDERABLES Nini l Result Performing Organization Address City/[facility]/ZIP Co de Phone Number [facility] ([place]) [address] [place] [address] [place] [address] * CT Abdomen Pelvis W Contrast (08/27/2024 [...] by Ramsey Rick M.D. JR: Report ID: [id number] Reading Location: [id number] Procedure Note Ramsey Rick MD - 08/27/2024 [...] by Ramsey Rick M.D. JR: Report ID: [id number] Reading Location: [place] [address] Elmer Hadley MD [facility] CT PROCEDURES Final Resu lt * eGFR [...] Final Res ult [facility] ([place]) 1 [facility] Department [place] [address] * (ABNORMAL) Differential, auto (08/27/2024 2:09 PM [...] revised on 2017. Eosinophil pct 0.4 % [facility] ([place]) Comment: Interpretive Data Percent [...] BLOOD ORDERABLES Final Res ult [facility] ([place]) 1 [facility] Department [place] [address] * Urinalysis reflex to microscopic and culture Urine (08/27/2024 2:09 PM CDT) Color, ur Yellow Yellow Clarity, ur Clear Clear [facility] ([place]) Specific gravity, ur 1.020 1.003 - 1.030 [facility] ([place]) pH, urine 6.0 [facility] ([place]) Comment: Interpretive Data U rine pH is affected by diet, medications, systemic acid-base disturbances, and renal tubular function. pH may affect urinary stone formation. For example, urine pH below 6.0 may help reduce the tendency for calcium phosphate stones and pH greater than 6.0 may reduce the tendency for uric acid stone formation. Source: [facility] Current Interpretive Data was last revised on [...] MICROBIOLOGY - GENERAL ORD ERABLES Final Result [facility] 1 [facility] Department [place] [address] * (ABNORMAL) CBC with auto differential (08/27/2024 [...] RDW SD 42.3 35.7 - 48.1 fL [facility]) NRBC abs 0.00 0.00 - 0.01 K/cumm [facility] ([place]) Blood Venous blood specimen / Unknown 08/27/2024 2:09 PM CDT 08/27/2024 2:17 PM CDT Justyn Jim MD LAB BLOOD ORDERABLES Final Res ult [facility] ([place]) 1 [facility] [place] [address] * ABO/Rh (08/27/2024 2:09 PM CDT) ABO/Rh O Positive Blood 08/27/2024 2:09 PM CDT 08/27/2024 2:17 PM CDT Narrative [facility] ([place]) - 08/27/2024 2:51 PM CDT Has the patient had Daratumumab or Isatuximab in the past 6 months?->Unknown Justyn Jim MD LAB BLOOD BANK TEST ORDERABLES Final Result Performing Organization Address [facility]/ZIP Co de Phone Number [facility] ([place]) 1 [facility] [place] [address] * Antibody screen (08/27/2024 2:09 PM CDT) Samir, indirect, Gel Interpretation Negative ABSC Blood 08/27/2024 2:09 PM CDT 08/27/2024 2:17 PM CDT Narrative [facility] ([place]) - 08/27/2024 2:52 PM CDT Has the patient had Daratumumab or Isatuximab in the past 6 months?->Unknown Justyn Jim MD LAB BLOOD BANK TEST ORDERABLES Final Result [facility] ([place]) 1 [facility] [place] [address] * Lipase (08/27/2024 2:09 PM CDT) Lipase 23 10 - 99 Units/L Blood Venous blood specimen / Unknown 08/27/2024 2:09 PM CDT 08/27/2024 2:17 PM CDT Justyn Jim MD LAB BLOOD ORDERABLES Final Res ult [facility] ([place]) 1 [facility] Department [place] [address] * Comprehensive metabolic panel (08/27/2024 2:09 PM CDT) Sodium 139 135 - 145 mmol/L Potassium, pl 3.5 3.3 - 4.9 mmol/L [facility]) Chloride 98 97 - 110 mmol/L [facility] CO2 29 22 - 32 mmol/L [facility]) Anion gap 12 2 - 15 mmol/L [facility] BUN 14 6 - 25 mg/dL [facility] Creatinine 0.71 0.60 - 1.10 mg/dL [facility]) Glucose 122 70 - 199 mg/dL [facility]) Comment: Interpretive Data Fasting glucose [...] Final Res ult [facility] ([place]) 1 [facility] Department [place] [address] from Last 3 Months Insurance MEDICARE [facility] MEDICARE [facility] [place] MEDICARE [facility] Advance Directives For more information, please contact: [phone] * Full Code (Latest Code Status on File) Date Activated Date Inactivated Comments 10/16/2018 3:34 PM 10/17/2018 1:22 PM Care Teams Kindergarten Teacher Relationship Specialty Start Date End Date Candice Dallas NP [address] [place] [address] [place] [address] PCP - General Nurse Practitioner 09/04/24
--- OUTSIDE RECORDS SUMMARY | 2024-10-08 07:57 | XMS_ITS ---
Author Organization [facility] Address [address] [place] [address] Care Team Providers Care Alley Tender Name Role Phone Nestor Devlin Primary Care Provider Unavailab Ronny Tate Unavailable [phone] Encounters Encounter Location Date Provider Diagnosis [facility] [address] [place] [address] 07/15/2023 Ronny Capone Personal history of colon [...] Notes * MEGAN DAVALOSDOB: (68 yo F)Acc No.[id number]:07/15/2023 Patient: MEGAN SKAGGS Provider: Jhonatan Capone MD :1955 A ge:67 Y S ex:Female Date:07/15/2023 Address:[address] [facility], [facility] Pcp:Nestor Devlin * * Sign off status: Completed true * Provider: Jhonatan Capone MD Date: 0 07/15/2023 Generated for Sami cam/Altaf/Zoya on: 0 10/08/2024 08:56 AM EDT
--- OUTSIDE RECORDS SUMMARY | 2024-10-08 07:57 | XMS_ITS ---
Author Organization [facility] Address [address] [place] [address] Care Team Providers Care Vascular Surgery Physician Name Role Phone Nestor Devlin Primary Care Provider Unavailab Ronny Tate Unavailable [phone] Allergies Allergen (clinical drug ingredient) Drug/Non Drug Allergy documented on EMR Reaction Allergy Type Onset Date Status amoxicillin Amoxicillin Unknown Drug Allergy Act demetrice Substance with 0-vmjkrgu-8-methylglutar yl-coenzyme A reductase inhibitor mechanism of action (substance) Statins Unknown Drug Allergy Active Substance with sulfonamide structure and antibacterial mechanism of action (substance) Sulfa Antibiotics Unknown Drug Allergy Active REASON FOR VISIT CONSTIPATION Medications Medication SIG (Take, Route, Frequency, Duration) Notes Start Date End Date Status Sutab 3346-806-562 MG [address] dose the [...] MD [address] [place] [address] 07/12/2023 Ronny Capone History of colonic polyps [...] Sig Start Date Stop Date Notes Sutab 2309-765-661 MG [address] dose the evening before and second dose the morning of colonoscopy Orally Twice a day for 1 day(s) 07/12/2023 Pending Test Test Name Order Date -COLON 07/12/2023 Progress Notes * LARA DAVALOS: 4 (68 yo F)Acc No.[id number]:07/12/2023 Progress Notes Patient: MEGAN SKAGGS Provider: Jhonatan Capone MD :1955 A ge:67 Y S ex:Female Date:07/12/2023 Address:[address] [place], [place] [address] Pcp:Nestor Devlin Subjective: * Chief Complaints: * [...] -COLON 3. O thers Start Sutab Tablet, 2656-750-940 MG, 12 tablets the first dose the evening before and second dose the morning of colonoscopy, Orally, Twice a day, 1 day(s), 24. * Procedure Codes: * * Sign off status: Completed true * Provider: Jhonatan Capone MD Date: 0 07/12/2023 Generated for Sami cam/Altaf/eTnemoitting on: 0 10/08/2024 08:57 AM EDT History and Physical Notes * [...]
--- OUTSIDE RECORDS SUMMARY | 2024-10-08 07:57 | XMS_ITS | Encounter Summary ---
Author Organization [facility] Address [facility] [place] [address] Care Team Providers Care Director Of Coding Name Role Phone Unavailable Primary Care Provider Unavailabl e Encounter Details Date Type Department Care Team (Late st Contact Info) Description 01/03/2019 Lab Requisition [facility] [address] [place] [address] Roverto Johnson MD [address] [place] [id number] Illness Social History Tobacco Use Types Packs/Day [...] CDT) Case Report Surgical Pathology Report Case: [id number] Authorizing Provider: Roverto Johnson MD Collected: 01/01/2019 08:57 AM Pathologist: Emely Wolf MD Received: 01/03/2019 08:58 AM Specimen: Colon Sigmoid 01/04/2019 12:02 PM CDT [facility] Final Diagnosis Large intestine, sigmoid polyp, biopsy (A): - Tubular adenoma 01/04/2019 12:02 PM [facility] Microscopic Description and Comment Microscopic examination substantiates the final diagnosis. 01/04/2019 12:02 PM [facility] Clinical History The patient is a 63-year-old woman who is here for screening for malignant colorectal neoplasm. Operative procedure/findings: colonoscopy 01/04/2019 12:02 PM [facility] PATH[facility] Gross Description The requisition and specimen label(s) are identified with the patient name, Natalie Davalos Received in formalin, specimen A, sigmoid polyp , is a single yellow-quintanilla polypoid tissue fragment measuring 0.6 cm, submitted in toto in cassette A1. /met 01/04/2019 12:02 PM [facility] PATH[facility] Disclaimer The performance characteristics of all immunohistochemical and indirect immunofluorescence stains (if any) cited in this report were determined by the Histopathology Laboratory of [facility]. Some of these tests were [...] the attending (teaching) pathologist. 01/04/2019 12:02 PM [facility] PATH[facility] LAB Embedded Images 01/04/2019 12:02 PM [facility] PATH[facility] LAB Pathology/Cytolo gy ENTIRE SIGMOID COLON / Unknown 01/01/2019 8:57 AM CDT 01/03/2019 8:58 AM CDT us Roverto Johnson MD LAB - PATHOLOGY/CYTOLOGY ORDERA BLES Final Result [facility] PATHOLOGY LAB [address] [phone] documented in this encounter Visit Diagnoses Diagnosis Illness Other unknown and unspecified cause of morbidity or mortality documented in this encounter
== END 2024-10-08 07:49 | disposition home or self-care (01) ==
LOC: CHSIMG 07:54
PROVIDERS: PCP Nurse Practitioner Adult Health; Visit Provider Nurse Practitioner Adult Health
DX: Z12.31 Encounter for screening mammogram for malignant neoplasm of breast (principal); R92.8 Other abnormal and inconclusive findings on diagnostic imaging of breast
CPT/HCPCS: 77063; 77067

== ENCOUNTER 2024-10-24 09:26 | Outpatient (CLI) | payer MEDICARE, SELFPAY ==
--- NOTE | ~2024-10-24 | MMUS_ITS ---
EXAMINATION: MM diagnostic arturo LT w brad, US breast LT limited HISTORY: Follow-up left breast asymmetries TECHNIQUE: Additional 3-D tomosynthesis images of the left breast were performed and synthetic 2-D im ages were generated. CAD analysis was submitted and interpreted. High resolution Limited left breast ultrasound was performed. COMPARISON: 10/08/2024 BREAST PARENCHYMAL COMPOSITION: Not dense: There are scattered areas of fibroglandular density. FINDINGS: MAMMOGRAPHIC FINDINGS: The areas of asymmetry in the upper outer quadrant of the left breast are less dense with spot compre ssion views. No discrete mass identified. There are no suspicious calcifications or architectural dis tortion. ULTRASOUND: Limited left breast ultrasound: At 4:00, 7 cm from the nipple there is a small 4 mm intramammary lymp h node. No suspicious masses to suggest malignancy. IMPRESSION: 1. No evidence for malignancy in the left breast. 2. Routine yearly screening mammogram and regular clinical breast examination are recommended. BI-RADS Category 2: Benign finding(s). Reviewed, dictated and finalized at location A. IMPRESSION: 1. No evidence for malignancy in the left breast. 2. Routine yearly screening mammogram and regular clinical breast examination a re recommended. BI-RADS Category 2: Benign finding(s).
--- OUTSIDE RECORDS SUMMARY | 2024-10-24 09:34 | XMS_ITS ---
Author Organization [facility] Address [address] [place] [address] Care Team Providers Care Collateral Clerk Name Role Phone Nestor Devlin Primary Care Provider Unavailab Ronny Tate Unavailable [phone] Encounters Encounter Location Date Provider Diagnosis [facility] [address] [place] [address] 07/15/2023 Ronny Capone Personal history of colon [...] Notes * MEGAN DAVALOSDOB: (68 yo F)Acc No.[id number]:07/15/2023 Patient: MEGAN SKAGGS Provider: Jhonatan Capone MD :1955 A ge:67 Y S ex:Female Date:07/15/2023 Address:[address] [facility], [facility] Pcp:Nestor Devlin * * Sign off status: Completed true * Provider: Jhonatan Capone MD Date: 0 07/15/2023 Generated for Sami cam/Altaf/Zoya on: 0 10/24/2024 10:34 AM EDT
--- OUTSIDE RECORDS SUMMARY | 2024-10-24 09:34 | XMS_ITS | Patient Health Record ---
Author Organization [facility] Address [address] [place] [address] Care Team Providers Care Graduate Internship Name Role Phone Nestor Devlin Primary Care Provider Unavailab Ronny Tate Unavailable [phone] Allergies Allergen (clinical drug ingredient) Drug/Non Drug Allergy documented on EMR Reaction Allergy Type Onset Date Status amoxicillin Amoxicillin Unknown Drug Allergy Act demetrice Substance with 1-fesealx-9-methylglutar yl-coenzyme A reductase inhibitor mechanism of action (substance) Statins Unknown Drug Allergy Active Substance with sulfonamide structure and antibacterial mechanism of action (substance) Sulfa Antibiotics Unknown Drug Allergy Active Reason For Referral No Information Medications Medication SIG (Take, Route, Frequency, Duration) Notes Start Date End Date Status Sutab 7816-242-501 MG [address] dose [...] Status W/U Status Risk Notes Problem Constipation (85926181) Constipation (K59.00) Active confirmed Problem History of colonic polyps (Z86.010) Active confirmed Plan Of Treatment Pending Test Test Name Order Date -COLON 07/12/2023 Insurance Providers Payer Name Payer Address Payer Phone Subscriber Number Group Number Insured Name Patient Relationship to Insured Coverage Start Date Coverage End Date MEDICARE [address] B [place] [phone] [id number] MEGAN DAVALOS Self - patient is the insured [address] [place] [address] [id number] MEGAN DAVALOS Self - patient is the insured Medical (General) History Medical History History ICD Code appendectomy cholecystectomy broken leg shoulder repair hysterectomy
--- OUTSIDE RECORDS SUMMARY | 2024-10-24 09:35 | XMS_ITS | Clinical Summary ---
Author Organization [facility] [employer] Address [facility] [facility] [place] [address] Care Team Providers Care Die Stamper Name Role Phone Unavailable Primary Care Provider Unavailabl e Source Comments [facility] [employer],non-owned Affiliates and Associated Physician Practices is amultiple site organization consisting of ambulatory clinics and hospital sitesin [place], [place], [place] and [place]. This disclosure is being madepursuant to the Care Everywhere program and may not contain all information available regarding this patient. Last updated 18.[facility] [employer] Allergies Active Allergy Reactions Criticality Noted Date [...] PO) Take by mouth once daily Active [place]-3 Fatty Acids (FISH OIL) 1200 MG Take [...] 1:50 PM CDT Height 170.2 cm (5' 7) 03/03/2017 1:50 PM CDT Body Mass Index [...]
--- OUTSIDE RECORDS SUMMARY | 2024-10-24 09:35 | XMS_ITS | Clinical Summary ---
Author Organization [facility] Address [address] [place] [address] Care Team Providers Care Pressurizer Name Role Phone Candice Dallas NP Primary Care Provider [phone] Allergies Active Allergy Reactions Criticality Noted Date Comments Last Inhibitors Anaphylaxis High 02/21/2017 Antihypertensives Amoxicillin-Pot Clavulanate Swelling High 01/09/2019 Facial swelling. 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 Encounters Date Type Department Care Team Description 10/17/2024 8:33 AM CDT Anesthesia Event [address] [address] George Cramer MD Standefer, Andrew J., COMBER OPERATOR 10/17/2024 8:00 AM CDT - 10/17/2024 8:30 AM CDT Surgery [address] [address] Katharine Espinoza MD COLON REMOVAL SNARE 10/17/2024 6:51 AM CDT - 10/17/2024 9:56 AM CDT Hospital Encounter [address] [address] Katharine Espinoza MD Colitis Discharge Disposition: Discharge to home or self care 09/10/2024 Results Follow-Up [facility] G[facility]ology at [address] [place] [address] Anika Vyas PA XR KUTy 09/04/2024 2:50 PM CDT - 09/04/2024 11:59 PM CDT Hospital Encounter [address] [address] Colitis; Chronic constipation; Bloating Discharge Disposition: Discharge to home or self care 09/04/2024 1:45 PM CDT Office Visit [facility] at [address] [place] [phone] Anika Vyas PA Colitis (Primary Dx); Chronic constipation; Bloating 09/04/2024 Telephone [facility] at [place] [address] [facility] [address] [place] [phone] Beatrice Young LPN 08/27/2024 4:05 PM CDT - 08/27/2024 6:10 PM CDT Emergency [facility] Emergency Department 1 [place] [address] Colitis (Primary Dx) Discharge Disposition: Discharge to home or self care from Last 3 Months Surgical History Surgery Date Site/Laterality Comments COLONOSCOPY 05/30/2021 - 05/29/2022 TOTAL KNEE ARTHROPLASTY 01/29/2024 - 02/27/2024 Left TOTAL KNEE ARTHROPLASTY 02/28/2024 - 03/29/2024 Right COLONOSCOPY 10/17/2024 Medical History Medical History Date Comments Type 2 diabetes mellitus (HCC) GERD (gastroesophageal reflux disease) Hypertension Family History Medical History Relation Name Comments Colon cancer Mother's Sister Relation Name Status Comments Mother's Sister Social History Tobacco Use Types Packs/Day Years Used Date Smoking Tobacco: Former Cigarettes 0.5 48.2 1 976 - 07/2023 Smokeless Tobacco: Never Tobacco Cessation:Counseling Given: Not Answered Alcohol Use Standard Drinks/Week Comments Never 0 (1 standard drink = 0.6 oz pur e alcohol) AUDIT-C Answer Date Recorded Q1: How often do you have a drink containing alc ohol? Monthly or less 10/16/2024 Q2: How many drinks containi ng alcohol do you have on a typical day when you are drinking? 1 or 2 10/16/2024 Q3: How often do you have si x or more drinks on one occasion? Never 10/16/2024 Personal Safety Answer Date Recorded Have you ever been in or are you currently in a harmful physical or emotional relationship or is someone making you feel afraid or unsafe? 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 Gender Identity Not on file Sexual Orientation Not on file Obstetrics History Last Filed Vital Signs Vital Sign Reading Time Taken Comments Blood Pressure 129/77 10/17/2024 9:46 AM CDT Pulse 69 10/17/2024 9:46 AM CDT Temperature 36.7 C (98 F) 10/17/2024 9:46 AM CDT Respiratory Rate 16 10/17/2024 9:46 AM CDT Oxygen Saturation 99% 10/17/2024 9:46 AM CDT Inhaled Oxygen Concentration - - Weight 95.3 kg (210 lb) 10/17/2024 7:27 AM CDT Height 172.7 cm (5' 8) 10/17/2024 7:27 AM CDT Body Mass Index 31.93 10/17/2024 7:27 AM CDT Plan of Treatment Health Maintenance Due Date Last Done Comments Depression Screening 1955 Hepatitis C Screening 1955 Osteoporosis Screening-Bone Density Scan 1955 Hepatitis B Screening 10/01/1971 DTaP/Tdap/Td Vaccine (1 - Tdap) 10/27/1995 6 Lung Cancer Screening 10/01/2003 Pneumococcal vaccine 65+ (1 of 1 - PCV) 10/01/2003 Zoster Vaccine (1 of 2) 10/01/2003 Well Visit 65+ 2018 Breast Cancer Screening-Mammogram 12/10/2021 021 Covid-19 Vaccine ( season) 2024, 09/11/2020 Influenza Vaccine (Season Ended) 2025 03/27/20 Fall Risk Assessment 10/17/2025 10/17/2024 Colon Cancer Screening-Colonoscopy 10/17/20342024 Colon Cancer Screening-CT Colonography Discontinued Colon Cancer Screening-DNA Stool Discontinued 10/18/19 Colon Cancer Screening-FIT Discontinued 10/17/2024 Colon Cancer Screening-Sigmoidoscopy Discontinued 09/28 Procedures Procedure Name Priority Date/Time Associated Diagnosis Comments SURGICAL PATHOLOGY STAT 10/17/2024 1: 45 PM CDT Colitis COLON REMOVAL SNARE 10/17/2024 8 :25 AM CDT Colitis POCT GLUCOSE DEVICE Routine 10/17/2024 7 :47 AM CDT COLONOSCOPY 10/17/2024 7:24 AM CDT XR KUB Schedule Routine, Read Routine (OP [...] CDT from Last 3 Months Results * Surgical pathology (10/17/2024 1:45 PM CDT) Tissue (Polyp(s), colon/colorectal, esophageal, gastric) 10/17/2024 8:58 AM CDT Tissue specimen (specimen) (Polyp(s), colon/colorectal, esophageal, gastric) 10/17/2024 9:02 AM CDT Narrative PATHOLOGY [facility] ([place]) - 10/23/2024 8:36 AM CDT EPIC results best viewed via link to PDF [facility] Department of Pathology [address] [place] [id number] Note to Patients: This report may contain a detailed description of human tissue sent by a health care provider to the laboratory for pathologic evaluation. The content of this report is essential for diagnosis and may provide important critical findings. This information may be unfamiliar to patients to review without a medical professional present. It is advised that the patient review this report in the presence of a health care provider who can answer questions and explain the details. Final Report Patient Name: NATALIE DAVALOS Address: [address] [place] [address], [place] [address] Gender: F : 1955 (Age: 69) Service: Gastro Location: [facility] Hospital #: [id number] Patient Type: [facility] Taken: 10/17/2024 Received: 10/18/2024 Accessioned: 10/18/2024 Reported: 10/23/2024 Physician(s):Katharine Espinoza MD Diagnosis: A. Cecal polyp, biopsy: - Tubular adenoma. - Negative for high-grade dysplasia. B. Ascending colon polyp x4, biopsy: - Tubular adenoma x3; negative for high-grade dysplasia. - Mucosal tag x1. Daniel Lopez M.D. Report Electronically Reviewed and Signed Out By Daniel Lopez M.D. 10/23/2024 08:36:46 Specimen(s) Received: A: Cecum colon polyp x 1 B: Ascending colon polyps x 4 Microscopic Description: A. Sections show a tubular adenoma. There is no evidence of high-grade dysplasia or invasive carcinoma. B. Sections show a tubular adenoma x3 and mucosal tag x1. There is no evidence of high-grade dysplasia or invasive carcinoma. Clinical History: Colitis. Colonoscopy. Gross Description: The specimen is submitted in two formalin containers labeled NATALIE DAVALOS. A. The first container is labeled cecum colon polyp. It is 3 fragments of quintanilla tissue measuring 1 mm. All in A. B. The second container is labeled ascending colon polyps x4. It is 3 pieces of quintanilla tissue between 4 and 6 mm and an approximate 0.1 cc aggregate of fecal matter may contain smaller fragments. All in B. T.A. Mar Mcrae.Willy./Griselda Ya M.D. REPORT IMAGES AND SCANNED DOCUMENTS, IF INCLUDED, ONLY VIEWABLE IN PDF VERSION OF REPORT The performance characteristics of some immunohistochemical stains, fluorescence in-situ hybridization tests and immunophenotyping by flow cytometry cited in this report (if any) were determined by the Surgical Pathology Department at [facility] as part of an ongoing compliance quality performance analyst program and in compliance with federally mandated regulations drawn from the Clinical Laboratory Improvement Act of 1988 (CLIA '88). Some of these tests rely on the use of analyte specific reagents and are subject to specific labeling requirements by the US Food and Drug Administration. Such diagnostic tests may only be performed in a facility that is certified by the Department of Health and Human Services as a high complexity laboratory under CLIA '88. The FDA has determined that such clearance or approval is not necessary. This test is used for clinical purposes. It should not be regarded as investigational or for research. Nevertheless, federal rules concerning the medical use of analyte specific reagents require that the following disclaimer be attached to the report: This test was developed and its performance characteristics determined by the Surgical Pathology Department [facility]. It has not been cleared or approved by the U. S. Food and Drug Administration. Note for decalcified specimens: This assay has not been validated on decalcified tissues. Results should be interpreted with caution given the possibility of false negativity on decalcified specimens Katharine Espinoza MD LAB PATHOLOGY ORDERABLES Final R esult Performing Organization Address City/[facility]/ZIP Co de Phone Number PATHOLOGY [facility] [address] [place] [address] * POCT glucose (10/17/2024 7:47 AM CDT) Glucose, POC 111 70 - 199 mg/dL Blood 10/17/2024 7:47 AM CDT 10/17/2024 7:47 AM CDT Katharine Espinoza MD LAB POCT ORDERABLES - DEVICE Fin al Result Performing Organization Address City/[facility]/ZIP Co de Phone Number [facility] [address] [facility] [place] [address] * Colonoscopy (10/17/2024 7:24 AM CDT) Anatomical Region Laterality Modality Other Narrative Procedure Note Katharine Espinoza MD - 10/17/2024 7:24 AM CDT [facility] Patient Name: Natalie Davalos Procedure Date: 10/17/2024 7:24 AM Date of : 1955 Admit Type: Outpatient Age: 69 Gender: Female Attending MD: Katharine Espinoza M.D. Room: [facility] ENDOSCOPY ROOM 2 Note Status: Finalized Patient Profile: This is a 69 year old female history of HTN,diabetes, obesity, tobacco use here for colonoscopy toevaluate previously noted colitis on imaging. Patient wasseen in the ED 2 months ago for diarrhea and blood inthe stool. CT that time showed mild fat stranding andwall thickening in the descending and sigmoid colon. Sheis no longer having diarrhea or. Currently having bloating constipation. Last colonoscopy had 5polyps perforation from 3 years ago. Family history ofaunt with colon cancer. Procedure: Colonoscopy Indications: Last colonoscopy: 2021, Abnormal CT of the GItract, Colitis, presumed infectious Referring MD: Candice Dallas, ANP Providers: Katharine Espinoza M.D. Impression: - Hemorrhoids found on perianal exam. - Four 2 to 4 mm polyps in the ascending colon, removed with a cold snare. Resected andretrieved. - One 5 mm polyp in the cecum, removed with a cold snare. Resected and retrieved. - Diverticulosis in the sigmoid colon with sharply angulated rectosigmoid junction. - External and internal hemorrhoids. Recommendation: - Patient has a contact number available for emergencies. The signs and symptoms of potential delayed complications were discussed with thepatient. Return to normal activities tomorrow. Written discharge instructions were provided to thepatient. - Discharge patient to home (with escort). - High fiber diet. - Use original regular Metamucil one tablespoon PO daily. - Await pathology results. - Repeat colonoscopy in 3 years with 2 day prep for surveillance based on pathology results. - Return to referring physician as previously scheduled. Medicines: Monitored Anesthesia Care Complications: No immediate complications. Estimated Blood Loss: Estimated blood loss was minimal. Procedure: Pre-Anesthesia Assessment: - Prior to the procedure, a History and Physicalwas performed, and patient medications and allergieswere reviewed. The patient is competent. The risks and benefits of the procedure and the sedation optionsand risks were discussed with the patient. Allquestions were answered and informed consent was obtained. Patient identification and proposed procedure were verified by the physician in the endoscopy suite. Mental Status Examination: normal. Prophylactic Antibiotics: The patient does not requireprophylactic antibiotics. Prior Anticoagulants: The patient has taken no anticoagulant or antiplatelet agents.After reviewing the risks and benefits, the patient was deemed in satisfactory condition to undergo the procedure. The anesthesia plan was to use general anesthesia. Immediately prior to administration of medications, the patient was re-assessed foradequacy to receive sedatives. The heart rate, respiratory rate, oxygen saturations, blood pressure, adequacyof pulmonary ventilation, and response to care were monitored throughout the procedure. The physical status of the patient was re-assessed after the procedure. The benefits, risks and alternatives of theprocedure and sedation were discussed and informed consentwas obtained. All questions were answered. Please referto the signed informed consent document in the medical record. The bowel preparation used was Miralax and bisacodyl tablets via extended prep with split dose instruction. The scope was passed under directvision. The Pediatric Colonoscope PCF-H190L [id number] was introduced through the anus and advanced to the the cecum, identified by appendiceal orifice andileocecal valve. The colonoscopy was somewhat difficult dueto multiple diverticula in the colon. Successful completion of the procedure was aided by usingmanual pressure. The patient tolerated the procedure well. The quality of the bowel preparation was adequate after extensive washing.Bowel prep was administered using a split dose. Findings: Hemorrhoids were found on perianal exam. Four flat polyps were found in the ascending colon. The polyps were 2to 4 mm in size. These polyps were removed with a cold snare. Resectionand retrieval were complete. A 5 mm polyp was found in the cecum next to a prior polypectomy scar site. The polyp was flat. The polyp was removed with a cold snare. Resection and retrieval were complete. Multiple small and large-mouthed diverticula were found in thesigmoid colon. External and internal hemorrhoids were found during retroflexion. Katharine Espinoza M.D. 10/17/2024 9:33:26 AM Number of Addenda: 0 Note Initiated On: 10/17/2024 7:24 AM Procedure Code(s): --- Professional --- 33526, Colonoscopy, flexible; with removal of tumor(s), polyp(s), or other lesion(s) by snare technique --- Technical --- 01842, Colonoscopy, flexible; with removal of tumor(s), polyp(s), or other lesion(s) by snare technique Diagnosis Code(s): --- Professional --- K64.8, Other hemorrhoids D12.2, Benign neoplasm of ascending colon D12.0, Benign neoplasm of cecum K52.9, Noninfective gastroenteritis and colitis, unspecified K57.30, Diverticulosis of large intestine without perforation orabscess without bleeding R93.3, Abnormal findings on diagnostic imaging of other parts of digestive tract --- Technical --- K64.8, Other hemorrhoids D12.2, Benign neoplasm of ascending colon D12.0, Benign neoplasm of cecum K52.9, Noninfective gastroenteritis and colitis, unspecified K57.30, Diverticulosis of large intestine without perforation orabscess without bleeding R93.3, Abnormal findings on diagnostic imaging of other parts of digestive tract CPT copyright 2020 [employer]. All rights reserved. The codes documented in this report are preliminary and upon customer services manager reviewmay be revised to meet current compliance requirements. Recognized by the [employer] for promoting quality in endoscopy Katharine Espinoza MD ENDOSCOPY PROCEDURES Final Resul t * XR KUB (09/04/2024 3:19 PM CDT) [...] Gabriel Dawn M.D. RW: STEF Report ID: [id number] Reading Location: [id number] Procedure Note Gabriel Dawn MD - 09/09/2024 [...] Gabriel Dawn M.D. RW: STEF Report ID: [id number] Reading Location: [place] [address] [place] Anika MENSAH IMG XR PROCEDURES Final Result * ABO / Rh Confirmation Testing (08/27/2024 5:01 PM CDT) ABO/Rh Confirmation O Positive [facility] Blood 08/27/2024 5:01 PM CDT 08/27/2024 5:57 PM CDT Narrative [facility] ([place]) - 08/27/2024 6:27 PM CDT Notified Latesha in ER for the need of a confirmatory type to be drawn. 08/27/2024 14:53:29 CDT [id number] Justyn Jim MD LAB BLOOD ORDERABLES Final Res ult [facility] [address] [facility] [place] [address] [facility] * Hemoglobin and hematocrit (08/27/2024 5:01 PM CDT) Hgb 13.0 11.9 - 15.5 g/dL Hct 39.2 35.6 - 45.5 % [facility] ([place] Blood 08/27/2024 5:01 PM CDT 08/27/2024 5:05 PM CDT us Rabia MENSAH LAB BLOOD ORDERABLES Nini l Result [facility] ([place]) 1 [facility] [place] [address] * CT Abdomen Pelvis W Contrast (08/27/2024 [...] by Ramsey Rick M.D. JR: Report ID: [id number] Reading Location: [id number] Procedure Note Ramsey Rick MD - 08/27/2024 [...] by Ramsey Rick M.D. JR: Report ID: [id number] Reading Location: [place] [address] Elmer Hadley MD IMG CT PROCEDURES Final Resu lt * eGFR (08/27/2024 2:09 PM CDT) Pathologist [facility] eGFR >90 >=60 mL/min/1. 73 m2 Comment: [...] LAB BLOOD ORDERABLES Final Res ult [facility] ([place]) [address] [facility] [place] [address] * (ABNORMAL) Differential, auto (08/27/2024 2:09 PM CDT) Pathologist [facility] Neutrophil abs 7.5(H) 1.5 - 6.5 K/cumm [...] on 2017. Monocyte pct 6.4 % [facility] ([place]) Comment: Interpretive Data Percent cell [...] BLOOD ORDERABLES Final Res ult [facility] ([place]) [address] [facility] [place] [address] * Urinalysis reflex to microscopic and culture [...] tendency for uric acid stone formation. Source: [facility] Current Interpretive Data was last revised on 2017 Protein, ur ql Negative Negative [facility] ([place]) Glucose, ur ql Negative Negative [facility] ([place]) Ketones, ur Negative Negative [facility] ([place]) Bilirubin, ur Negative Negative [facility] ([place] Blood, ur Negative Negative [facility] ([place] Urobilinogen, ur <2.0 <2.0 mg/dL [facility] ([place]) Nitrite, ur Negative Negative [facility] ([place]) Leukocyte esterase, ur Negative Negative [facility] ([place]) UA reflex comment Reflex conditions for microscopic UA and culture not met. [facility] ([place]) Urine 08/27/2024 2:09 PM CDT 08/27/2024 2:17 PM CDT us Justyn Jim MD LAB MICROBIOLOGY - GENERAL ORD ERABLES Final Result [facility] ([place] [address] [facility] [place] [address] * (ABNORMAL) CBC with auto differential (08/27/2024 2:09 PM CDT) WBC 10.0(H) 3.8 - 9.9 K/cumm Hgb 13.8 11.9 - 15.5 g/dL [facility] ([place]) Hct 42.1 35.6 - 45.5 % [facility] ([place]) Plt 304 150 - 400 K/cumm [facility] ([place]) MPV 10.3 9.1 - 12.3 fL [facility] ([place] RBC 4.79 3.90 - 5.20 M/cumm [facility] ([place] MCV 87.9 81.3 - 96.4 fL [facility] MCH 28.8 27.1 - 33.3 pg [facility] MCHC 32.8 32.3 - 35.7 g/dL [facility] RDW CV 13.1 11.1 - 14.9 % [facility] RDW SD 42.3 35.7 - 48.1 fL [facility] NRBC abs 0.00 0.00 - 0.01 K/cumm [facility] ([place] Blood Venous blood specimen / Unknown 08/27/2024 2:09 PM CDT 08/27/2024 2:17 PM CDT Justyn Jim MD LAB BLOOD ORDERABLES Final Res ult [facility] ([place]) [address] [facility] [place] [address] * ABO/Rh (08/27/2024 2:09 PM CDT) ABO/Rh O Positive Blood 08/27/2024 2:09 PM CDT 08/27/2024 2:17 PM CDT Narrative [facility] ([place] - 08/27/2024 2:51 PM CDT Has the patient had Daratumumab or Isatuximab in the past 6 months?->Unknown Justyn Jim MD LAB BLOOD BANK TEST ORDERABLES Final Result [facility] ([place]) [address] [facility] [place] [address] * Antibody screen (08/27/2024 2:09 PM CDT) Samir, indirect, Gel Interpretation Negative [facility] Blood 08/27/2024 2:09 PM CDT 08/27/2024 2:17 PM CDT Narrative [facility] ([place]) - 08/27/2024 2:52 PM CDT Has the patient had Daratumumab or Isatuximab in the past 6 months?->Unknown Justyn Jim MD LAB BLOOD BANK TEST ORDERABLES Final Result Performing Organization Address City/[facility]/ZIP Co de Phone Number [facility] ([place]) [address] [place] [address] * Lipase (08/27/2024 2:09 PM CDT) Pathologist [facility] Lipase 23 10 - 99 Units/L Blood Venous blood specimen / Unknown 08/27/2024 2:09 PM CDT 08/27/2024 2:17 PM CDT Justyn Jim MD LAB BLOOD ORDERABLES Final Res ult Performing Organization Address [facility] Co de Phone Number [facility] ([place]) [address] [place] [address] * Comprehensive metabolic panel (08/27/2024 2:09 PM CDT) Pathologist [facility] Sodium 139 135 - 145 mmol/L Potassium, pl 3.5 3.3 - 4.9 mmol/L [facility] Chloride 98 97 - 110 mmol/L [facility] CO2 29 22 - 32 mmol/L [facility] Anion gap 12 2 - 15 mmol/L [facility] ([place] BUN 14 6 - 25 mg/dL [facility] ([place] Creatinine 0.71 0.60 - 1.10 mg/dL [facility] Glucose 122 70 - 199 mg/dL [facility] ([place] Comment: Interpretive Data Fasting glucose [...] MD LAB BLOOD ORDERABLES Final Res ult [facility] ([place]) [address] [facility] [place] [address] from Last 3 Months Insurance MEDICARE [facility] MEDICARE [facility] MEDICARE [facility] Advance Directives For more information, please contact: [phone] * Full Code (Latest Code Status on File) Date Activated Date Inactivated Comments 10/17/2024 7:22 AM 10/17/2024 1:56 PM * Full Code Date Activated Date Inactivated Comments 10/17/2024 7:22 AM 10/17/2024 7:22 AM * Full Code Date Activated Date Inactivated Comments 10/16/2018 3:34 PM 10/17/2018 1:22 PM Care Teams Pressurizer Relationship Specialty Start Date End Date Candice Dallas NP [facility] [place] [address] PCP - General Nurse Practitioner 09/04/24
--- OUTSIDE RECORDS SUMMARY | 2024-10-24 09:35 | XMS_ITS | Encounter Summary ---
Author Organization [facility] Address [facility] [place] [address] Care Team Providers Care Director Client Services Name Role Phone Unavailable Primary Care Provider Unavailabl e Encounter Details Date Type Department Care Team (Late st Contact Info) Description 01/03/2019 Lab Requisition [facility] [address] [place] [address] Roverto Johnson MD [address] [place] [id number] Illness Social History Tobacco Use Types Packs/Day [...] CDT) Case Report Surgical Pathology Report Case: [id number] Authorizing Provider: Roverto Johnson MD Collected: 01/01/2019 08:57 AM Pathologist: Emely Wolf MD Received: 01/03/2019 08:58 AM Specimen: Colon Sigmoid 01/04/2019 12:02 PM CDT [facility] Final Diagnosis Large intestine, sigmoid polyp, biopsy (A): - Tubular adenoma 01/04/2019 12:02 PM [facility] at 1202 CDT Microscopic Description and Comment Microscopic examination substantiates the final diagnosis. 01/04/2019 12:02 PM [facility] Clinical History The patient is a 63-year-old woman who is here for screening for malignant colorectal neoplasm. Operative procedure/findings: colonoscopy 01/04/2019 12:02 PM [facility] Gross Description The requisition and specimen label(s) are identified with the patient name, Natalie Davalos Received in formalin, specimen A, sigmoid polyp, is a single yellow-quintanilla polypoid tissue fragment measuring 0.6 cm, submitted in toto in cassette A1. /met 01/04/2019 12:02 PM [facility] Disclaimer The performance characteristics of all immunohistochemical and indirect immunofluorescence stains (if any) cited in this report were determined by the Histopathology Laboratory of [facility]. Some of these tests were developed by [...] the attending (teaching) pathologist. 01/04/2019 12:02 PM T [facility] Embedded Images 01/04/2019 12:02 PM T [facility] Pathology/Cytolo gy ENTIRE SIGMOID COLON / Unknown 01/01/2019 8:57 AM CDT 01/03/2019 8:58 AM CDT us Roverto Johnson MD LAB - PATHOLOGY/CYTOLOGY ORDERA BLES Final Result [facility] [address] [phone] documented in this encounter Visit Diagnoses Diagnosis Illness Other unknown and unspecified cause of morbidity or mortality documented in this encounter
--- OUTSIDE RECORDS SUMMARY | 2024-10-24 09:35 | XMS_ITS ---
Author Organization [facility] Address [address] [place] [address] Care Team Providers Care Primary Montessori Teacher Name Role Phone Nestor Devlin Primary Care Provider Unavailab Ronny Tate Unavailable [phone] Allergies Allergen (clinical drug ingredient) Drug/Non Drug Allergy documented on EMR Reaction Allergy Type Onset Date Status amoxicillin Amoxicillin Unknown Drug Allergy Act demetrice Substance with 4-mujqcwa-7-methylglutar yl-coenzyme A reductase inhibitor mechanism of action (substance) Statins Unknown Drug Allergy Active Substance with sulfonamide structure and antibacterial mechanism of action (substance) Sulfa Antibiotics Unknown Drug Allergy Active REASON FOR VISIT CONSTIPATION Medications Medication SIG (Take, Route, Frequency, Duration) Notes Start Date End Date Status Sutab [id number] [address] dose the [...] MD [address] [place] [address] 07/12/2023 Ronny Capone History of colonic polyps [...] Sig Start Date Stop Date Notes Sutab [id number] MG [address] dose the evening before and second dose the morning of colonoscopy Orally Twice a day for 1 day(s) 07/12/2023 Pending Test Test Name Order Date -COLON 07/12/2023 Progress Notes * LARA DAVALOS: 4 (68 yo F)Acc No.[id number]:07/12/2023 Progress Notes Patient: MEGAN SKAGGS Provider: Jhonatan Capone MD :1955 A ge:67 Y S ex:Female Date:07/12/2023 Address:[address] [place], [place] [id number] Pcp:Nsetor Devlin Subjective: * Chief Complaints: * C [...] -COLON 3. O thers Start Sutab Tablet, [id number] MG, 12 tablets the first dose the evening before and second dose the morning of colonoscopy, Orally, Twice a day, 1 day(s), 24. * Procedure Codes: * * Sign off status: Completed true * Provider: Jhonatan Capone MD Date: 0 07/12/2023 Generated for Sami cam/Altaf/Marlonitting on: 0 10/24/2024 10:34 AM EDT History and Physical Notes * [...]
--- OUTSIDE RECORDS SUMMARY | 2024-10-24 09:35 | XMS_ITS | Referral Summary ---
Author Organization [facility] Address [address] [place] [address] Care Team Providers Care Public Information Officer Name Role Phone Candice Dallas NP Primary Care Provider [phone] Encounters Date Type Department Care Team Description 10/17/2024 8:33 AM CDT Anesthesia Event [address] [address] George Cramer MD Standefer, Andrew J., FULL ROLL INSPECTOR 10/17/2024 8:00 AM CDT - 10/17/2024 8:30 AM CDT Surgery [address] [address] Katharine Espinoza MD COLON REMOVAL SNARE 10/17/2024 6:51 AM CDT - 10/17/2024 9:56 AM CDT Hospital Encounter [address] [address] Katharine Espinoza MD Colitis Discharge Disposition: Discharge to home or self care 09/10/2024 Results Follow-Up [facility] Gastroenterology at [address] [place] [address] Anika Vyas PA XR KUB 09/04/2024 2:50 PM CDT - 09/04/2024 11:59 PM CDT Hospital Encounter [address] [address] Colitis; Chronic constipation; Bloating Discharge Disposition: Discharge to home or self care 09/04/2024 Telephone [facility] Gastroenterology at [address] [place] [address] Beatrice Young LPN 09/04/2024 1:45 PM CDT Office Visit [facility] Gastroenterology at [place] [address] [facility] [address] [place] [address] Anika Vyas PA Colitis (Primary Dx); Chronic constipation; Bloating 08/27/2024 4:05 PM CDT - 08/27/2024 6:10 PM CDT Emergency [facility] Emergency Department [address] [place] [address] Colitis (Primary Dx) Discharge Disposition: Discharge to home or self care from Last 3 Months Allergies Active Allergy Reactions Criticality Noted Date Comments Last Inhibitors Anaphylaxis High 02/21/2017 Antihypertensives Amoxicillin-Pot Clavulanate Swelling High 01/09/2019 Facial swelling. 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 Final Report Patient Name: NATALIE LIANG Address: [address] [place] [address] Gender: F : 1955 (Age: 69) Service: Gastro Location: [facility] Hospital #: [id number] Patient Type: [facility] Taken: 10/17/2024 Received: 10/18/2024 Accessioned: 10/18/2024 Reported: [...] submitted in two formalin containers labeled NATALIE LIANG. A. The first container is labeled cecum [...] determined by the Surgical Pathology Department at [facility] as part of an ongoing quality systems specialist program and in compliance with federally mandated [...] characteristics determined by the Surgical Pathology Department [facility]. It has not been cleared or approved by the U. S. Food and Drug Administration. Note for decalcified specimens: This assay has not been validated on decalcified tissues. Results should be interpreted with caution given the possibility of false negativity on decalcified specimens us Katharine Espinoza MD LAB PATHOLOGY ORDERABLES Final R esult PATHOLOGY [facility] ([facility] [address] [place] [address] * POCT glucose (10/17/2024 7:47 AM CDT) Glucose, POC 111 70 - 199 mg/dL Blood 10/17/2024 7:47 AM CDT 10/17/2024 7:47 AM CDT us Katharine Espinoza MD LAB POCT ORDERABLES - DEVICE Fin al Result [facility] [address] [place] [address] Department [place] [address] * Colonoscopy (10/17/2024 7:24 AM CDT) Anatomical Region Laterality Modality Other Narrative Procedure Note Katharine Espinoza MD - 10/17/2024 7:24 AM CDT [facility] Patient Name: Natalie Liang Procedure Date: 10/17/2024 7:24 AM Date of : 1955 Admit Type: Outpatient Age: 69 Gender: Female Attending MD: Katharine Espinoza M.D. Room: [facility] RO[facility] 2 Note Status: Finalized Patient [...] the GItract, Colitis, presumed infectious Referring MD: ZEE Moore Providers: Katharine Espinoza M.D. Impression: - Hemorrhoids [...] passed under directvision. The Pediatric Colonoscope [id number] was introduced through the anus and advanced [...] 7:24 AM Procedure Code(s): --- Professional --- 35702, Colonoscopy, flexible; with removal of tumor(s), polyp(s), or other lesion(s) by snare technique --- Technical --- 54000, Colonoscopy, flexible; with removal of tumor(s), polyp(s), [...] parts of digestive tract CPT copyright 2020 [employer]. All rights reserved. The codes documented in this report are preliminary and upon customer contact representative reviewmay be revised to meet current compliance requirements. Recognized by the [employer] for promoting quality [...] Gabriel Dawn M.D. RW: STEF Report ID: [id number] Reading Location: [id number] Procedure Note Gabriel Dawn MD - 09/09/2024 [...] Gabriel Dawn M.D. RW: STEF Report ID: [id number] Reading Location: [id number] us Anika MENSAH IMG XR PROCEDURES Final Result * ABO / Rh Confirmation Testing (08/27/2024 5:01 PM CDT) [facility] ABO/Rh Confirmation O Positive [facility] Blood 08/27/2024 5:01 PM CDT 08/27/2024 5:57 PM CDT Narrative [facility] - 08/27/2024 6:27 PM CDT Notified Latesha in ER for the need of a confirmatory type to be drawn. 08/27/2024 14:53:29 CDT [id number] us Justyn Jim MD LAB BLOOD ORDERABLES Final Res ult [facility] [address] [facility] Department [place] [address] [facility] * Hemoglobin and hematocrit (08/27/2024 5:01 PM CDT) Hgb 13.0 11.9 - 15.5 g/dL Hct 39.2 35.6 - 45.5 % [facility] Blood 08/27/2024 5:01 PM CDT 08/27/2024 5:05 PM CDT Rabia MENSAH LAB BLOOD ORDERABLES Nini l Result [facility] [address] [facility] Department [place] [address] * CT Abdomen Pelvis W Contrast (08/27/2024 [...] by Ramsey Rick M.D. JR: Report ID: [id number] Reading Location: [place] [address] Procedure Note Ramsey Rick MD - 08/27/2024 [...] by Ramsey Rick M.D. JR: Report ID: [id number] Reading Location: [place] [address] us Elmer Hadley MD IMG CT PROCEDURES Final Resu lt * eGFR (08/27/2024 2:09 PM CDT) Pathologist [facility] eGFR >90 >=60 mL/min/1. 73 m2 Comment: [...] of Race in Diagnosing Kidney Disease, JASN 202). The CKD-EPI equation should not be used for patients with unstable renal function and has not been validated in children and those over 70. Current interpretive data was last reviewed 2021. Blood 08/27/2024 2:09 PM CDT 08/27/2024 2:17 PM CDT Justyn Jim MD LAB BLOOD ORDERABLES Final Res ult [facility] [place] [address] [facility] Department [place] [address] * (ABNORMAL) Differential, auto (08/27/2024 2:09 PM [...] Final Res ult [facility] [address] [facility] [employer] [place] [address] * Urinalysis reflex to microscopic and culture [...] tendency for uric acid stone formation. Source: [facility] [employer] Current Interpretive Data was last revised on [...] ERABLES Final Result [facility] [address] [facility] Department [place] [address] * (ABNORMAL) CBC with auto differential (08/27/2024 [...] Final Res ult [facility] [address] [facility] Department [place] [address] * ABO/Rh (08/27/2024 2:09 PM CDT) ABO/Rh O Positive Blood 08/27/2024 2:09 PM CDT 08/27/2024 2:17 PM CDT Narrative [facility] - 08/27/2024 2:51 PM CDT Has the patient had Daratumumab or Isatuximab in the past 6 months?->Unknown Justyn Jim MD LAB BLOOD BANK TEST ORDERABLES Final Result [facility] [address] [place] [address] * Antibody screen (08/27/2024 2:09 PM CDT) Samir, indirect, Gel Interpretation Negative ABSC Blood 08/27/2024 2:09 PM CDT 08/27/2024 2:17 PM CDT Narrative [facility] - 08/27/2024 2:52 PM CDT Has the patient had Daratumumab or Isatuximab in the past 6 months?->Unknown Justyn Jim MD LAB BLOOD BANK TEST ORDERABLES Final Result Performing Organization Address City/[facility]/ZIP Co de Phone Number [facility] [address] [place] [address] * Lipase (08/27/2024 2:09 PM CDT) Pathologist [facility] Lipase 23 10 - 99 Units/L Blood Venous blood specimen / Unknown 08/27/2024 2:09 PM CDT 08/27/2024 2:17 PM CDT Justyn Jim MD LAB BLOOD ORDERABLES Final Res ult [facility] [address] [place] [address] * Comprehensive metabolic panel (08/27/2024 2:09 PM CDT) Sodium 139 135 - 145 mmol/L Potassium, pl 3.5 3.3 - 4.9 mmol/L [facility] Chloride 98 97 - 110 mmol/L [facility] CO2 29 22 - 32 mmol/L [facility] Anion gap 12 2 - 15 mmol/L [facility] BUN 14 6 - 25 mg/dL [...] MD LAB BLOOD ORDERABLES Final Res ult [facility] [address] [facility] Department of Laboratories [place], [place] [id number] from Last 3 Months Insurance [address]ICARE [facility] MEDICARE [facility] MEDICARE [employer] Advance Directives For more information, please contact: [phone] * Full Code (Latest Code Status on File) Date Activated Date Inactivated Comments 10/17/2024 7:22 AM 10/17/2024 1:56 PM * Full Code Date Activated Date Inactivated Comments 10/17/2024 7:22 AM 10/17/2024 7:22 AM * Full Code Date Activated Date Inactivated Comments 10/16/2018 3:34 PM 10/17/2018 1:22 PM Care Teams Public Information Officer Relationship Specialty Start Date End Date Candice Dallas NP [facility] [place] [address] PCP - General Nurse Practitioner 09/04/24
== END 2024-10-24 09:27 | disposition home or self-care (01) ==
LOC: CHSIMG 09:28
PROVIDERS: PCP Nurse Practitioner Adult Health; Visit Provider Nurse Practitioner Adult Health
DX: R92.8 Other abnormal and inconclusive findings on diagnostic imaging of breast (principal)
CPT/HCPCS: 76642; 77061; 77065; G0279

== ENCOUNTER 2024-12-19 06:52 | Outpatient (CLI) | payer MEDICARE, SELFPAY ==
--- NOTE | ~2024-12-19 | MR_ITS ---
EXAMINATION: MR lumbar spine wo con DATE: 12/19/2024 07:33 INDICATION: Lumbar radiculopathy TECHNIQUE: Magnetic resonance imaging (MRI) of the lumbar spine was performed without intravenous con trast. Sequences included sagittal T2-weighted FSE, sagittal T2-weighted FS FSE, sagittal T1-weighted FSE, and axial T2-weighted FSE. COMPARISON: None FINDINGS: Mild S-shaped curvature of the thoracic and lumbar spine with mild lumbar levocurvature and mild thor acolumbar dextrocurvature. 2 mm retrolisthesis T12 on L1 and L3 on L4. Severe disc height loss with r ight-sided predominance at L3-L4 and severe left-sided prominent disc height loss at T12-L1. Moderate disc height loss at T10-T11 and T11-T12. Mild disc height loss at L1-L2, L2-L3 and L4-L5. There are fibrovascular degenerative endplate changes at before meals pelvis with moderate to severe disc heigh t loss. Additional increased fluid signal underlying a shallow Schmorl's node along the superior endp late of L2. No pathologic marrow replacing process. There are annular fissures at T12-L1 and L2-L3. T he conus medullaris terminates at L1. There is normal signal in the caudal spinal cord. Paravertebral soft tissues are unremarkable. The following disc levels are specifically discussed: T12-L1: Disc is bulging. There is mild bilateral facet joint osteoarthritis. There is mild right and moderate left neural foraminal stenosis. There is mild central canal stenosis. L1-L2: Disc is bulging. There is mild to moderate bilateral facet joint osteoarthritis. There is mild bilateral neural foraminal stenosis. There is mild central canal stenosis. L2-L3: Disc is bulging with superimposed annular fissure and right subarticular zone disc extrusion w ith disc material extending 3 mm caudal to the level of the superior endplate of L3. There is moderat e right and mild to moderate left facet joint osteoarthritis. There is mild left and moderate right n eural foraminal stenosis. There is mild central canal stenosis as well as mild stenosis of the right lateral recess. L3-L4: Disc is bulging. There is mild left and moderate right facet joint osteoarthritis. There is mi ld left and moderate right neural foraminal stenosis. There is mild central canal stenosis. L4-L5: Disc is bulging. There is hypertrophy of the ligamentum flavum. There is moderate bilateral fa cet joint osteoarthritis. There is mild bilateral neural foraminal stenosis. There is mild central ca nal stenosis. L5-S1: The disc does not extend beyond the endplate margin. There is severe bilateral facet joint ost eoarthritis. There is minimal bilateral neural foraminal stenosis. There is no central canal stenosis . IMPRESSION: 1. Mild S-shaped curvature of the lumbar and lower thoracic spine with severe spondylosis. Reviewed, dictated and finalized at location A. IMPRESSION: 1. Mild S-shaped curvature of the lumbar and lower thoracic spine with severe s pondylosis.
--- NOTE | ~2024-12-19 | MR_ITS ---
EXAMINATION: MR cervical spine wo con DATE: 12/19/2024 07:32 INDICATION: Cervical radiculopathy TECHNIQUE: Magnetic resonance imaging (MRI) of the cervical spine was performed without intravenous c ontrast. Sequences included sagittal T2-weighted FSE, sagittal T2-weighted FS FSE, sagittal T1-weight ed FSE, axial MERGE and axial T2-weighted FSE. COMPARISON: None FINDINGS: Bone alignment is normal. Vertebral body heights are normal. Moderate disc height loss at C5-C6, C6- C7 and T1-T2. There is associated mild fibrovascular degenerative endplate changes at C6-C7 and fibro fatty degenerative endplate changes at T1-T2 and T2-T3. Marrow signal is otherwise normal. Cord signa l intensity is normal. Visualized cervical soft tissues are unremarkable. The following disc levels a re specifically discussed: C2-C3: The disc does not extend beyond the endplate margin. There is no uncovertebral joint osteoarth ritis. There is mild left and moderate right facet joint osteoarthritis. There is minimal left neural foraminal stenosis. There is no central canal stenosis. C3-C4: Disc is minimally bulging. There is mild bilateral uncovertebral joint osteoarthritis. There i s moderate left and severe right facet joint osteoarthritis. There is mild bilateral neural foraminal stenosis. There is no central canal stenosis. C4-C5: Disc is bulging. There is moderate bilateral uncovertebral joint osteoarthritis. There is mild right and moderate left facet joint osteoarthritis. There is mild left and mild to moderate right ne ural foraminal stenosis. There is mild central canal stenosis. C5-C6: Disc is bulging. There is severe bilateral uncovertebral joint osteoarthritis. There is mild b ilateral facet joint osteoarthritis. There is moderate bilateral neural foraminal stenosis. There is mild central canal stenosis. C6-C7: Disc is bulging. There is severe bilateral uncovertebral joint osteoarthritis. There is mild r ight and moderate left facet joint osteoarthritis. There is mild bilateral neural foraminal stenosis. There is mild central canal stenosis. C7-T1: Disc is bulging. There is mild bilateral uncovertebral joint osteoarthritis. There is mild rig ht and moderate left facet joint osteoarthritis. There is mild left and moderate right neural foramin al stenosis. There is mild central canal stenosis. IMPRESSION: 1. Moderate cervical spondylosis. Reviewed, dictated and finalized at location A.
== END 2024-12-19 06:53 | disposition home or self-care (01) ==
LOC: MICIMG 06:53
PROVIDERS: PCP Nurse Practitioner Adult Health; Visit Provider Nurse Practitioner Adult Health
DX: M47.26 Other spondylosis with radiculopathy, lumbar region (principal); M47.22 Other spondylosis with radiculopathy, cervical region
CPT/HCPCS: 72141; 72148

== ENCOUNTER 2025-02-12 10:07 | Day surgery (SDC) | payer MEDICARE, SELFPAY ==
[2025-02-08 08:44] VITALS: BMI 32.5
--- NOTE | ~2025-02-12 | XR_ITS ---
XR fluoroscopy no charge Indication:Midline C6-C7 interlaminar epidural steroid injection TECHNIQUE: Fluoroscopy used during Midline C6-C7 interlaminar epidural steroid injection performed by [Kali Padgett MD] on 02/12/2025. 35 seconds of fluoroscopy with 3 fluoroscopic images captured. FINDINGS: Correlate with procedure note. IMPRESSION: Fluoroscopy used during Midline C6-C7 interlaminar epidural steroid injection. Reviewed, dictated and finalized at location O.
[2025-02-12 10:30] VITALS: BP 151/75; PULSE 81; RESP 15; TEMP 36.6; O2SAT 96
--- NOTE | 2025-02-12 10:55 | WPDHPUPDATE1 ---
History and Physical Update Update Date/Time: 02/12/25 10:55 History and Physical has been reviewed, including an updated exam of the patient. There are NO changes in the patient's condition. Risks, benefits, and alternatives have been discussed and questions answered. Patient agrees to proceed with procedure.
--- NOTE | 2025-02-12 10:56 | P.OP_ITS ---
Procedure Note - Detailed Date of Procedure 02/12/25 Pre-op Diagnosis Spinal Stenosis, Cervical Region Post-op Diagnosis Same Procedure Performed Leftward Cervical Interlaminar Epidural Steroid Injection at C7-T1 under Fluoroscopic Guidance and with Contrast Control. Surgeon Kali Padgett MD Anesthesia Local Description of Procedure INFORMED CONSENT: Risks, benefits and alternatives to the procedure were discussed in detail with the patient who expressed explicit understanding and consent to proceed. Patient was informed verbally and in written form regarding the risks associated with the procedure including the low risk of serious infection, bleeding/bruising, allergic reaction, nerve or organ injury, paralysis, procedural site pain or discomfort, worsening pain and/or mobility, failure to treat and/or disfigurement. The patient expressed explicit understanding and consent to proceed. All materials required for the procedure were available prior to procedure start. Site and side was marked prior to procedure and confirmed in the presence of the patient. PROCEDURE IN DETAIL: The patient was brought to the procedural suite and placed in the prone position. Patient's head was positioned and stabilized with a ProneView pillow or equivalent. Patient was made comfortable with use of pillows under the chest, hips and ankles. Skin overlying the injection site was prepared broadly with ChloraPrep applicator and draped in a sterile manner. Aseptic technique was employed throughout. The endplates of the vertebral body at the site of interest were aligned in the AP view. Slight caudad tilt and ipsilateral oblique angulation was utilized to optimize visualization of the targeted posterior intervertebral foramen at C7-T1. Local anesthesia was established by infiltration with approximately 5 mL of 2% lidocaine via a 1-1/2 inch 27-gauge needle. A 20-gauge 4-inch Tuohy epidural needle was advanced intermittently until appropriate loss of resistance to air was identified via plastic loss of resistance syringe. Lateral view was used to confirm the appr opriate positioning of the needle tip within the posterior epidural space. In the AP view, 2.0 mL of Omnipaque 300 contrast medium was injected after negative aspiration for CSF, blood or other bodily fluid, showing appropriate epidural spread of contrast without evidence of intravascular or intrathecal placement. After negative repeat aspiration for CSF, blood or other bodily fluid, A 4 mL solution containing 10 mg of dexamethasone in sterile PF Normal Saline was injected after negative repeat aspiration. Appropriate spread of the injectate was confirmed with washout of previously injected contrast. No parasthesias were elicited. Needle was removed completely intact without difficulty. Images were saved and documented in the patient chart. Patient's skin was cleansed and sterile bandage applied. The patient tolerated the procedure well. The patient was transported to the recovery area in stable condition where they were observed for an appropriate amount of time prior to discharge, without evidence of complication. The patient was instructed to avoid excessive activity for the next 48 hours, including overhead work, reaching or extended device/computer usage. Showers only for 48 hours. They were instructed not to drive or operate heavy machinery for 24 hours. They are to monitor for severe headaches, fevers, chills, night sweats, erythema/swelling at the site or any other signs of infection, bleeding/bruising, bowel or bladder changes as well as new pain, weakness or numbness in the upper or lower extremity. Should they notice these changes, they are instructed to call our office immediately or report directly to the nearest Emergency Department if no answer or if after posted office hours. CONTRAST WASTED: 28mL Omnipaque 300. COMMENTS: Procedure was converted to a cervical interlaminar epidural injection from a left port approach secondary to primary neurologic complaints existing within the left upper extremity. However I during the procedure, immediately upon loss of resistance at C6-7 CSF return was noted. No paresthesia. CSF return was clear and colorless. Needle was withdrawn and epidural space was we accessed at the C7-T1 level from a left for approach. Appropriate loss of resistance was obtained at this level without CSF or blood return. Injection was then completed at C7-T1 with excellent results and no evidence of complication. Patient denied symptomatic evidence of a post dural puncture headache including distinct absence of postural head discomfort prior to discharge. Patient was informed to contact the office should she experience any of these symptoms moving forward. Complications No immediate complications Condition Stable Disposition Same day [facility] Billing Surgery - Charge Forward: Surgery Billing
[2025-02-12 11:22] VITALS: BP 153/78; PULSE 84; RESP 14; O2SAT 94
[2025-02-12] MEDS: dexAMETHasone SOD PHOS INJ 10 MG/ML 1 ML VIAL IM (11:22)
[2025-02-12 11:28] VITALS: BP 134/71; PULSE 84; RESP 12; O2SAT 96
[2025-02-12 11:33] VITALS: BP 136/75; PULSE 78; RESP 20; O2SAT 99
--- OUTSIDE RECORDS SUMMARY | 2025-02-12 11:46 | XMS_ITS | Encounter Summary ---
Author Organization [facility] Address [address] [place] [address] [place] [address] Care Team Providers Care Shore Working Supervisor Name Role Phone Unavailable Primary Care Provider Unavailabl e Encounter Details Date Type Department Care Team (Late st Contact Info) Description 01/03/2019 Lab Requisition [facility] [address] [place] [address] Roverto Johnson MD [address] [place] [id number] Illness Social History Tobacco Use Types Packs/Day [...] CDT) Case Report Surgical Pathology Report Case: [id number] Authorizing Provider: Roverto Johnson MD Collected: 01/01/2019 08:57 AM Pathologist: Emely Wolf MD Received: 01/03/2019 08:58 AM Specimen: Colon Sigmoid 01/04/2019 12:02 PM CDT [facility] Final Diagnosis Large intestine, sigmoid polyp, biopsy (A): - Tubular adenoma 01/04/2019 12:[address] [facility] at 1202 CDT Microscopic Description and Comment Microscopic examination substantiates the final diagnosis. 01/04/2019 12:[address] [facility] Clinical History The patient is a 63-year-old woman who is here for screening for malignant colorectal neoplasm. Operative procedure/findings: colonoscopy 01/04/2019 12:02 PM T [facility] Gross Description The requisition and specimen label(s) are identified with the patient name, Natalie Davalos Received in formalin, specimen A, sigmoid polyp, is a single yellow-quintanilla polypoid tissue fragment measuring 0.6 cm, submitted in toto in cassette A1. /met 01/04/2019 12:[address] [facility] Disclaimer The performance characteristics of all immunohistochemical and indirect immunofluorescence stains (if any) cited in this report were determined by the Histopathology Laboratory of [facility]. Some of these tests were developed by [...] attending (teaching) pathologist. 01/04/2019 12:02 PM T [facility] Embedded Images 01/04/2019 12:02 PM T [facility] Pathology/Cytolo gy ENTIRE SIGMOID COLON / Unknown 01/01/2019 8:57 AM CDT 01/03/2019 8:58 AM CDT us Roverto Johnson MD LAB - PATHOLOGY/CYTOLOGY ORDERA BLES Final Result [facility] [address] [phone] documented in this encounter Visit Diagnoses Diagnosis Illness Other unknown and unspecified cause of morbidity or mortality documented in this encounter
--- OUTSIDE RECORDS SUMMARY | 2025-02-12 11:46 | XMS_ITS | Clinical Summary ---
Author Organization [facility] Address [address] [place] [address] Care Team Providers Care Automobile Engine Assembler Name Role Phone Candice Dallas NP Primary Care Provider [phone] Allergies Active Allergy Reactions Criticality Noted Date Comments Last Inhibitors Anaphylaxis High 02/21/2017 Antihypertensives Amoxicillin-Pot Clavulanate Swelling High 01/09/2019 Facial swelling. Rash Codeine Rash Medium 10/03/2018 Levofloxacin Other (See comments) Low 02/21/2017 Causes arthritis to flare up Losartan Potassium Unknown 02/21/2017 Other Shortness of breath High 10/16/2024 Sulfur Jmgcsum-Eqp-Guo Reductase Inhibitors Itching,Muscle pain,Other (See comments) Medium [...] 2 (two) times a day Active multivit-minera v-trag-vrnhfa tabletIndicatio ns:supplement Take 1 tablet by mouth [...] (six) hours 60 tablet 2 9 Active linaCLOtide (LINZESS) 145 mcg capsule Take 1 capsule (145 mcg total) by mouth daily 60 capsule 5 Active Active Problems Problem Noted Date Diagnosed Date Colitis 09/04/2024 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 Encounters Date Type Department Care Team Description 11/16/2024 1:00 PM CDT Office Visit [facility] G[facility]ology at [address] [place] [phone] Anika Vyas PA Chronic constipation (Primary Dx); Bloating; Diverticulosis; Internal hemorrhoids; External hemorrhoids; Tubular adenoma of colon 11/16/2024 Telephone [facility] Gastroenterology at [address] [place] [phone] Beatrice Young LPN from Last 3 Months Surgical History Surgery Date Site/Laterality Comments COLONOSCOPY 05/30/2021 - 05/29/2022 TOTAL KNEE ARTHROPLASTY 01/29/2024 - 02/27/2024 Left TOTAL KNEE ARTHROPLASTY 02/28/2024 - 03/29/2024 Right COLONOSCOPY 10/17/2024 Medical History Medical History Date Comments Type 2 diabetes mellitus GERD (gastroesophageal reflux disease) Hypertension Family History [...] often do you have a drink containing alcohol? Never 11/16/2024 Q2: How many drinks containi ng alcohol do you have on a typical day when you are drinking? Patient does not drink Q3: How often do you have si x or more drinks on one occasion? Never 11/16/2024 Personal Safety Answer Date Recorded Have you ever been in or are you currently in a harmful physical or emotional relationship or is someone making you feel afraid or unsafe? 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 Gender Identity Not on file Sexual Orientation Not on file Obstetrics History Last Filed Vital Signs Vital Sign Reading Time Taken Comments Blood Pressure 132/74 11/16/2024 12:59 PM CDT Pulse 90 11/16/2024 12:59 PM CDT Temperature 36.7 C (98 F) 10/17/2024 9:46 AM CDT Respiratory Rate 16 10/17/2024 9:46 AM CDT Oxygen Saturation 94% 11/16/2024 12:59 PM CDT Inhaled Oxygen Concentration - - Weight 95 kg (209 lb 8 oz) 11/16/2024 12:59 PM C DT Height 172.7 cm (5' 8) 10/17/2024 7:27 AM CDT Body Mass Index 31.85 10/17/2024 7:27 AM CDT Plan of Treatment [...] Screening-Mammogram 12/10/2021 021 Covid-19 Vaccine ( season) 2025, 09/11/2020 Influenza Vaccine (#1) 2025 03/27/2018 Fall Risk Assessment 10/17/2025 10/17/2024 Colon Cancer Screening-Colonoscopy 10/17/20342024 Colon Cancer Screening-CT Colonography Discontinued Colon Cancer Screening-DNA Stool Discontinued 10/18/19 Colon Cancer Screening-FIT Discontinued 10/17/2024 Colon Cancer Screening-Sigmoidoscopy Discontinued 09/28 Procedures Procedure Name Priority Date/Time Associated Diagnosis Comments COLONOSCOPY 10/17/2024 7:24 AM CDT from Last 3 Months or Most Recently Relevant to Health Maintenance Results * Colonoscopy (10/17/2024 7:24 AM CDT) Anatomical Region Laterality Modality Other Narrative Procedure Note Katharine Espinoza MD - 10/17/2024 7:24 AM CDT [facility] Patient Name: Natalie Davalos Procedure Date: 10/17/2024 7:24 AM Date of : 1955 Admit Type: Outpatient Age: 69 Gender: Female Attending MD: Katharine Espinoza M.D. Room: [facility] 2 Note Status: Finalized [...] passed under directvision. The Pediatric Colonoscope [id number]-[id number] was introduced through the anus and advanced [...] 7:24 AM Procedure Code(s): --- Professional --- 44309, Colonoscopy, flexible; with removal of tumor(s), polyp(s), or other lesion(s) by snare technique --- Technical --- 02991, Colonoscopy, flexible; with removal of tumor(s), polyp(s), [...] parts of digestive tract CPT copyright 2020 [employer]. All rights reserved. The codes documented in this report are preliminary and upon community arts officer reviewmay be revised to meet current compliance requirements. Recognized by the [employer] G[employer] for promoting quality in endoscopy Katharine Espinoza MD ENDOSCOPY PROCEDURES Final Resul t from Last 3 Months or Most Recently Relevant to Health Maintenance Insurance MEDICARE [facility] MEDICARE [facility] MEDICARE [facility] Advance Directives For more information, please contact: [phone] * Full Code (Latest Code Status on File) Date Activated Date Inactivated Comments 10/17/2024 7:22 AM 10/17/2024 1:56 PM * Full Code Date Activated Date Inactivated Comments 10/17/2024 7:22 AM 10/17/2024 7:22 AM * Full Code Date Activated Date Inactivated Comments 10/16/2018 3:34 PM 10/17/2018 1:22 PM Care Teams Automobile Engine Assembler Relationship Specialty Start Date End Date Candice Dallas NP [facility] [place] [address] PCP - General Nurse Practitioner 09/04/24
--- OUTSIDE RECORDS SUMMARY | 2025-02-12 11:46 | XMS_ITS | Clinical Summary ---
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
--- OUTSIDE RECORDS SUMMARY | 2025-02-12 11:46 | XMS_ITS | Patient Health Record ---
Author Organization [facility] Address [address] [place] [address] Care Team Providers Care Black Oxide Coating Equipment Tender Name Role Phone Nestor Devlin Primary Care Provider Unavailab Ronny Tate Unavailable [phone] Allergies Allergen (clinical drug ingredient) Drug/Non Drug Allergy documented on EMR Reaction Allergy Type Onset Date Status amoxicillin Amoxicillin Unknown Drug Allergy Act demetrice Substance with 3-hvovwux-0-methylglutar yl-coenzyme A reductase inhibitor mechanism of action (substance) Statins Unknown Drug Allergy Active Substance with sulfonamide structure and antibacterial mechanism of action (substance) Sulfa Antibiotics Unknown Drug Allergy Active Reason For Referral No Information Medications Medication SIG (Take, Route, Frequency, Duration) Notes Start Date End Date Status Sutab 7588-867-392 MG Tablet 12 tablets the first dose the evening before and second dose the morning of colonoscopy Orally Twice a day; Duration: 1 day(s) 07/12/2023 Active Glimepiride 2 MG Tablet 1 tablet with breakfast or the first main meal of the day Orally Once a day Active hydroCHLOROthiazide 25 MG Tablet 1 tablet in the morning Orally Once a day Active amLODIPine Besylate 10 MG Tablet 1 tablet Orally Once a day Active Social History Tobacco Use: Social History Observation Description Date Details (start date - stop date) Current Smoker NA - NA Social History Tobacco Use: Social Info Question Answer Notes Tobacco Control (Standard) Tobacco use: Current smoker Problems Problem Type SNOMED Code ICD Code Onset Dates Problem Status W/U Status Risk Notes Problem Constipation (70670075) Constipation (K59.00) Active confirmed Problem History of polyp of colon (situation) (072452750) History of colonic polyps (Z86.010) Active confirmed Plan Of Treatment Pending Test Test Name Order Date -COLON 07/12/2023 Insurance Providers Payer Name Payer Address Payer Phone Subscriber Number Group Number Insured Name Patient Relationship to Insured Coverage Start Date Coverage End Date MEDICARE [address] Part B [place] and [place] [id number] MEGAN DAVALOS Self - patient is the insured [address] [place] [address] [id number] MEGAN DAVALOS Self - patient is the insured Medical (General) History Medical History History ICD Code appendectomy cholecystectomy broken leg shoulder repair hysterectomy
--- OUTSIDE RECORDS SUMMARY | 2025-02-12 11:46 | XMS_ITS | Clinical Summary ---
Author Organization [facility] Address [facility] [place] [address] Care Team Providers Care Manager Home Improvement Name Role Phone Unavailable Primary Care Provider Unavailabl e Source Comments [facility],non-owned Affiliates and Associated Physician Practices is amultiple site organization consisting of ambulatory clinics and hospital sitesin [place], [place], [place] and [place]. This disclosure is being madepursuant to the Care Everywhere program and may not contain all information available regarding this patient. Last updated 18.[facility] Allergies Active Allergy Reactions Criticality Noted Date [...] PO) Take by mouth once daily Active [place]-3 Fatty Acids (FISH OIL) 1200 MG Take [...] of 2) 10/01/2003 SCREENING FOR DIABETES 03/03/2017 DEPRESSION SCREENING 05/30/2024 COVID-19 VACCINE (1 - 2023-2 5 season) 2025 INFLUENZA VACCINE (#1) 2025 Respiratory Syncytial Virus (RSV) Vaccine Pt: [...]
== END 2025-02-12 11:48 | disposition home or self-care (01) ==
PROVIDERS: PCP Nurse Practitioner Adult Health; Visit Provider Anesthesiology Pain Medicine
PROC: (CPT 62321; principal; 2025-02-12 11:00)
DX: M48.02 Spinal stenosis, cervical region (principal)
CPT/HCPCS: 62321; 99199; J1100

== ENCOUNTER 2025-03-07 09:23 | Outpatient (CLI) | payer MEDICARE, SELFPAY ==
[2025-03-07 19:33] LABS: Alanine Aminotransferase 25 U/L (6-35); Albumin Level 4.2 g/dL (3.5-5.1); Alkaline Phosphatase 81 U/L (38-126); Anion Gap 7 mmol/L (4-12); Aspartate Amino Transferase 50 U/L (14-36); Bilirubin,Total 0.7 mg/dL (0.2-1.3); Blood Urea Nitrogen 20 mg/dL (7-17); Calcium 9.5 mg/dL (8.4-10.2); Carbon Dioxide 33 mmol/L (22-30); Chloride 97 mmol/L (98-107); Cholesterol 202 mg/dL (0-200); Estimated Glomerular Filt Rate > 60; Glucose 102 mg/dL (65-110); HDL Direct 31 mg/dL; Potassium 4.0 mmol/L (3.4-5.0); Sodium 137 mmol/L (137-145); Total Protein 7.3 g/dL (6.3-8.2); Triglycerides 232 mg/dL (<150)
[2025-03-07 20:12] LABS: Hemoglobin A1C 6.4 % (<5.7)
[2025-03-07 20:14] LABS: MALB Creatinine Ratio < 11.5 mg/g (0-30)
[2025-03-07 20:26] LABS: Vitamin B12 468.0 pg/mL (239-931)
== END 2025-03-07 09:24 | disposition home or self-care (01) ==
LOC: ANHBWCLAB 09:24
PROVIDERS: PCP Nurse Practitioner Adult Health; Visit Provider Nurse Practitioner Adult Health
DX: E11.9 Type 2 diabetes mellitus without complications (principal); Z51.81 Encounter for therapeutic drug level monitoring; Z79.899 Other long term (current) drug therapy
CPT/HCPCS: 36415; 80053; 80061; 82043; 82565; 82607; 83036

== ENCOUNTER 2025-03-25 06:45 | Day surgery (SDC) | payer MEDICARE, SELFPAY ==
--- NOTE | ~2025-03-25 | XR_ITS ---
XR fluoroscopy no charge Indication:bilateral L4-5, L5-S1 facet joint steroid injection TECHNIQUE: Fluoroscopy used during bilateral L4-5, L5-S1 facet joint steroid injection performed by [Kali Padgett MD] on 03/25/2025. 64 seconds of fluoroscopy with an 18 fluoroscopic images captured. FINDINGS: Correlate with procedure note. IMPRESSION: Fluoroscopy used during bilateral L4-5, L5-S1 facet joint steroid injection. Reviewed, dictated and finalized at location B. IMPRESSION: Fluoroscopy used during bilateral L4-5, L5-S1 facet joint steroid i njection.
--- OUTSIDE RECORDS SUMMARY | 2025-03-25 06:59 | XMS_ITS | Encounter Summary ---
Author Organization [facility] Address [address] [place] [address] [place] [address] Care Team Providers Care Legal Secretary Receptionist Name Role Phone Unavailable Primary Care Provider Unavailabl e Encounter Details Date Type Department Care Team (Late st Contact Info) Description 01/03/2019 Lab Requisition [facility] [address] [place] [address] Roverto Johnson MD [address] [place] [id number] Illness Social History Tobacco Use Types Packs/Day [...] CDT) Case Report Surgical Pathology Report Case: [id number] Authorizing Provider: Roverto Johnson MD Collected: 01/01/2019 08:57 AM Pathologist: Emely Wolf MD Received: 01/03/2019 08:58 AM Specimen: Colon Sigmoid 01/04/2019 12:02 PM CDT [facility] Final Diagnosis Large intestine, sigmoid polyp, biopsy (A): - Tubular adenoma 01/04/2019 12:02 PM [facility] at 1202 CDT Microscopic Description and Comment Microscopic examination substantiates the final diagnosis. 01/04/2019 12:02 PM [facility] Clinical History The patient is a 63-year-old woman who is here for screening for malignant colorectal neoplasm. Operative procedure/findings: colonoscopy 01/04/2019 12:[address] [facility] Gross Description The requisition and specimen label(s) are identified with the patient name, Natalie Davalos Received in formalin, specimen A, sigmoid polyp, is a single yellow-quintanilla polypoid tissue fragment measuring 0.6 cm, submitted in toto in cassette A1. /met 01/04/2019 12:02 PM [facility] Disclaimer The performance characteristics [...] attending (teaching) pathologist. 01/04/2019 12:[address] [facility] Embedded Images 01/04/2019 12:[address] [facility] Pathology/Cytolo gy ENTIRE SIGMOID COLON / Unknown 01/01/2019 8:57 AM CDT 01/03/2019 8:58 AM CDT us Roverto Johnson MD LAB - PATHOLOGY/CYTOLOGY ORDERA BLES Final Result [facility] [address] [phone] documented in this encounter Visit Diagnoses Diagnosis Illness Other unknown and unspecified cause of morbidity or mortality documented in this encounter
--- OUTSIDE RECORDS SUMMARY | 2025-03-25 06:59 | XMS_ITS | Patient Health Record ---
Author Organization [facility] Address [address] [place] [address] Care Team Providers Care Rn Transition Name Role Phone Nestor Devlin Primary Care Provider Unavailab Ronny Tate Unavailable [phone] Allergies Allergen (clinical drug ingredient) Drug/Non Drug Allergy documented on EMR Reaction Allergy Type Onset Date Status amoxicillin Amoxicillin Unknown Drug Allergy Act demetrice Substance with 5-vvedted-1-methylglutar yl-coenzyme A reductase inhibitor mechanism of action (substance) Statins Unknown Drug Allergy Active Substance with sulfonamide structure and antibacterial mechanism of action (substance) Sulfa Antibiotics Unknown Drug Allergy Active Reason For Referral No Information Medications Medication SIG (Take, Route, Frequency, Duration) Notes Start Date End Date Status Sutab 8915-702-556 MG Tablet 12 tablets the first dose [...] Status W/U Status Risk Notes Problem Constipation (01353908) Constipation (K59.00) Active confirmed Problem History of polyp of colon (situation) (746357906) History of colonic polyps (Z86.010) Active confirmed Plan Of Treatment Pending Test Test Name Order Date -COLON 07/12/2023 Insurance Providers Payer Name Payer Address Payer Phone Subscriber Number Group Number Insured Name Patient Relationship to Insured Coverage Start Date Coverage End Date MEDICARE [address] B Claims and [place] [id number] MEGAN DAVALOS Self - patient is the insured [address] [place] [address] [id number] MEGAN DAVALOS Self - patient is the insured Medical (General) History Medical History History ICD Code appendectomy cholecystectomy broken leg shoulder repair hysterectomy
--- OUTSIDE RECORDS SUMMARY | 2025-03-25 06:59 | XMS_ITS | Clinical Summary ---
Author Organization [facility] Address [address] [place] [address] Care Team Providers Care Glass Melt Operator Name Role Phone Candice Dallas NP Primary Care Provider [phone] Allergies Active Allergy Reactions Criticality Noted Date Comments Last Inhibitors Anaphylaxis High 02/21/2017 Antihypertensives Amoxicillin-Pot Clavulanate Swelling High 01/09/2019 Facial swelling. Rash Codeine Rash Medium 10/03/2018 Levofloxacin Other (See comments) Low 02/21/2017 Causes arthritis to flare up Losartan Potassium Unknown 02/21/2017 Other Shortness of breath High 10/16/2024 Sulfur Yyawvuh-Gmw-Ymn Reductase Inhibitors Itching,Muscle pain,Other (See comments) Medium [...] 2 (two) times a day Active multivit-minera [id number]-[id number] tabletIndicatio ns:supplement Take 1 tablet by mouth [...] PROCEDURE PERFORMED (Kristy 10/16/18) Left infrastructure maxillectomy. 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 Room: [facility] ENDOSCOPY ROOM 2 Note Status: Finalized [...] passed under directvision. The Pediatric Colonoscope PCF-H190L [id number] was introduced through the anus and advanced [...] 7:24 AM Procedure Code(s): --- Professional --- 08512, Colonoscopy, flexible; with removal of tumor(s), polyp(s), or other lesion(s) by snare technique --- Technical --- 40888, Colonoscopy, flexible; with removal of tumor(s), polyp(s), [...] parts of digestive tract CPT copyright 2020 [employer]. All rights reserved. The codes documented in this report are preliminary and upon fatback trimmer reviewmay be revised to meet current compliance requirements. Recognized by the [employer] for promoting quality in endoscopy Katharine Espinoza MD ENDOSCOPY PROCEDURES Final Resul t from Last 3 Months or Most Recently Relevant to Health Maintenance Insurance MEDICARE [facility] MEDICARE [facility] MEDICARE [facility] Advance Directives For more information, please contact: [phone] * Full Code (Latest Code Status on File) Date Activated Date Inactivated Comments 10/17/2024 7:22 AM 10/17/2024 1:56 PM * Full Code Date Activated Date Inactivated Comments 10/17/2024 7:22 AM 10/17/2024 7:22 AM * Full Code Date Activated Date Inactivated Comments 10/16/2018 3:34 PM 10/17/2018 1:22 PM Care Teams Glass Melt Operator Relationship Specialty Start Date End Date Candice Dallas NP [facility] [place] [address] PCP - General Nurse Practitioner 09/04/24
--- OUTSIDE RECORDS SUMMARY | 2025-03-25 06:59 | XMS_ITS | Clinical Summary ---
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 Gender Identity Not on file Sexual Orientation [...] 10/01/2003 Dexa Scan (General) 2018 COVID-19 Vaccine ( - 2024-2 6 season) 2025 Influenza Adult (#1) 2025 RSV Immunization or 60+ Years (1 - 1-dose 75+ series) 2028 Hepatitis A Vaccines Aged Out No long er eligible based on patient's age to complete this topic Meningococcal B Vaccine Aged Out No l onger eligible based on patient's age to complete this topic Meningococcal Vaccine Aged Out No nelson elizabeth eligible based on patient's age to complete this topic RSV Immunizations Under 20 Months Aged Out No longer eligible based on patient's age to complete this topic
--- OUTSIDE RECORDS SUMMARY | 2025-03-25 06:59 | XMS_ITS | Clinical Summary ---
Author Organization [facility] [employer] Address [facility] [place] [address] Care Team Providers Care Aircraft Refueller Name Role Phone Unavailable Primary Care Provider Unavailabl e Source Comments [facility] [employer],non-owned Affiliates and Associated Physician Practices is amultiple site organization consisting of ambulatory clinics and hospital sitesin [place], [place], [place] and [place]. This disclosure is being madepursuant to the Care Everywhere program and may not contain all information available regarding this patient. Last updated 18.[facility] [employer] Allergies Active Allergy Reactions Criticality Noted Date [...] PO) Take by mouth once daily Active Yuma-3 Fatty Acids (FISH OIL) 1200 MG Take [...]
[2025-03-25 07:07] VITALS: BP 137/79; PULSE 73; RESP 16; TEMP 36.5; O2SAT 95
--- NOTE | 2025-03-25 08:06 | P.OP_ITS ---
Procedure Note - Detailed Date of Procedure 03/25/25 Pre-op Diagnosis Lumbosacral spondylosis, chronic low back pain Post-op Diagnosis Same Procedure Performed Bilateral Lumbar Intra-articular Facet Joint Steroid Injection at L4-5, L5-S1 u nder Fluoroscopic Guidance and with Contrast Control (4 levels treated). Surgeon Kali Padgett MD Anesthesia Local Description of Procedure INFORMED CONSENT: Risks, benefits and alternatives to the procedure were discussed in detail with the patient who expressed explicit understanding and consent to proceed. Patient was informed verbally and in written form regarding the risks associated with the procedure including the low risk of serious infection, ble eding/bruising, allergic reaction, nerve or organ injury, paralysis, procedural site pain or discomfort, worsening pain and/or mobility, failure to treat and/or disfigurement. The patient expressed explicit understanding and consent to proceed. All materials required for the procedure were available prior to procedure start. Site and side were marked prior to procedure and confirmed in the presence of the patient. PROCEDURE IN DETAIL: The patient was brought to the procedural suite and placed in the prone position. Patient was made comfortable with use of pillows under the head/chest, hips and ankles. Skin overlying the injection site on the affected side(s) was prepared broadly with ChloraPrep applicator. The endplates of the vertebral body at the site of interest were aligned in the AP view. Ipsilateral oblique angulation was utilized to better visualize the intra- articular space of the target joint(s). Local anesthesia was established by infiltration with approximately 5 mL of 2% lidocaine via a 1-1/2 inch 27-gauge needle. A 25-gauge 5.0 inch Quincke spinal needle was advanced until the needle entered the inferior extension of the facet joint capsule of the right L4-5 facet joint. In the AP view, 0.5 mL of Omnipaque 300 contrast medium was injected after negative aspiration for CSF, blood or other bodily fluid, showing appropriate intra-articular spread of contrast without evidence of intravascular or intrathecal placement. A 0.5 mL solution containing 2.5 mg of dexamethasone in 0.5% PF bupivacaine was injected after negative repeat aspiration. Appropriate spread of the injectate was confirmed with washout of previously injected contrast. No paresthesias were elicited. Needle was removed completely intact without difficulty. The same exact procedure was repeated for all remaining levels on the ipsilateral side, right L5-S1 facet joint, modified as necessary to accommodate for the new target location with identical findings/results and no evidence of complication. The same exact procedure was repeated for all remaining levels on the contralateral side, left L4-5, L5-S1 facet joints, modified as necessary to accommodate for the new target location with identical findings/results and no evidence of complication. Images were saved and documented in the patient chart. Patient's skin was cleansed and sterile bandage applied. The patient tolerated the procedure well. The patient was transported to the recovery area in stable condition where they were observed for an appropriate amount of time prior to discharge, without evidence of complication. The patient was instructed to avoid excessive activity for the next 48 hours, including climbing and frequent use of stairs. Showers only for 48 hours. They were instructed not to drive or operate heavy machinery for 24 hours. They are to monitor for severe headaches, fevers, chills, night sweats, erythema/swelling at the site or any other signs of infection, bleeding/bruising, bowel or bladder changes as well as new pain, weakness or numbness in the upper or lower extremity. Should they notice these changes, they are instructed to call our office immediately or report directly to the nearest Emergency Department if no answer or if after posted office hours. COMPLICATIONS: None COMMENTS: None CONTRAST WASTED: 28 mL of Omnipaque 300. STEROID WASTED: 0 mg of Dexamethasone. Complications No immediate complications Condition Stable Disposition Same day [facility] Billing Surgery - Charge Forward: Surgery Billing
--- NOTE | 2025-03-25 08:06 | WPDHPUPDATE1 ---
History and Physical Update Update Date/Time: 03/25/25 08:06 History and Physical has been reviewed, including an updated exam of the patient. There are NO changes in the patient's condition. Risks, benefits, and alternatives have been discussed and questions answered. Patient agrees to proceed with procedure.
[2025-03-25 08:17] VITALS: BP 144/70; PULSE 63; RESP 9; O2SAT 93
[2025-03-25] MEDS: LIDOCAINE 1% PF INJ 5 ML VIAL INFILTRATE (08:19)
[2025-03-25] MEDS: BUPivacaine HCL 0.5% 10 ML AMP 2 ML INFILTRATE (08:20)
[2025-03-25 08:21] VITALS: BP 138/67; PULSE 66; RESP 9; O2SAT 97
[2025-03-25] MEDS: dexAMETHasone SOD PHOS INJ 10 MG/ML 1 ML VIAL IM (08:21)
[2025-03-25 08:26] VITALS: BP 141/72; PULSE 73; RESP 11; O2SAT 96
[2025-03-25 08:29] VITALS: BP 128/71; PULSE 72; RESP 9; O2SAT 96
[2025-03-25 08:33] VITALS: BP 124/84; PULSE 80; RESP 18; O2SAT 99
== END 2025-03-25 08:39 | disposition home or self-care (01) ==
PROVIDERS: PCP Nurse Practitioner Adult Health; Visit Provider Anesthesiology Pain Medicine
PROC: (CPT 64493; principal; 2025-03-25 08:10)
DX: M47.26 Other spondylosis with radiculopathy, lumbar region (principal); M48.061 Spinal stenosis, lumbar region without neurogenic claudication; M54.50 Low back pain, unspecified; G89.29 Other chronic pain
CPT/HCPCS: 64493 ×2; 64494 ×2; 64495 ×2; 99199